=== PATIENT | male | born 1980 | race Caucasian/White ===

== ENCOUNTER 2017-07-20 21:00 | Emergency (ER) | payer SELFPAY ==
[2017-07-20 22:58] LABS: Absolute Lymphocytes (CBC) 4.9 K/uL (0.7-4.9); Absolute Monocytes 1.3 K/uL (0.1-1.3); Absolute Neutrophil 6.1 K/uL (1.8-8.0); Basophils % 0.9 % (0-1.3); Eosinophils % 3.1 % (0-4.4); Hematocrit 43.7 % (39.6-49.0); Lymphocytes % 38.4 % (15.3-44.8); MCH 29.3 pg (27.0-35.0); MCV 86.9 fL (80-100); MPV 7.4 fL (7.6-11.3); Monocytes % 10.1 % (3.3-12.3); RBC Red Blood Cell Count 5.03 M/uL (4.33-5.43)
[2017-07-20 23:02] LABS: Bicarbonate 28 mEq/L (21-31); Glucose Level 116 mg/dL (65-120); Potassium 3.4 mEq/L (3.6-5.0); Sodium Level 138 mEq/L (135-145)
[2017-07-20 23:03] LABS: BUN Blood Urea Nitrogen 11 mg/dL (6-20)
--- NOTE | 2017-07-20 23:36 | EDPHYS ---
Physician Documentation [facility] Name: Irving Tan Age: 36 yrs Sex: Male : 1980 Arrival Date: 07/20/2017 Time: 21:01 Bed 13 Private MD: ED Physician Spenser Martinez HPI: 07/20 23:32 This 36 yrs old Male presents to ER via Ambulatory with complaints of Chest gs Pain. 23:32 The patient or guardian reports chest pain that is located primarily in the anterior gs chest wall. The pain does not radiate. Associated signs and symptoms: Pertinent negatives: abdominal pain, diaphoresis, dizziness, recent travel, shortness of breath. The chest pain is described as dull. Duration: The patient or guardian reports multiple episodes, that are intermittent, that wax and wane, with no pattern, the episodes last approximately 10 second(s), the episodes last approximately 2 minute(s). Modifying factors: The symptoms are alleviated by nothing. the symptoms are aggravated by nothing. Severity of pain: At its worst the pain was moderate in the emergency department the pain has improved moderately. The patient has experienced similar episodes in the past, several times. The patient has not recently seen a physician. Historical: - Allergies: 21:30 No Known Allergies; ak1 - Home Meds: 21:30 CBD oil [Active]; ak1 - PMHx: 21:30 None; ak1 - PSHx: 21:30 None; ak1 - Immunization history:: Adult Immunizations unknown. - Social history:: Smoking status: Patient uses tobacco products, smokes one-half pack cigarettes per day. ROS: 23:32 All other systems are negative. gs Exam: 23:32 Head/Face: Normocephalic, atraumatic. Eyes: Pupils equal round and reactive to light, gs extra-ocular motions intact. Lids and lashes normal. Conjunctiva and sclera are non-icteric and not injected. Cornea within normal limits. Periorbital areas with no swelling, redness, or edema. ENT: Nares patent. No nasal discharge, no septal abnormalities noted. Tympanic membranes are normal and external auditory canals are clear. Oropharynx with no redness, swelling, or masses, exudates, or evidence of obstruction, uvula midline. Mucous membranes moist. Neck: Trachea midline, no thyromegaly or masses palpated, and no cervical lymphadenopathy. Supple, full range of motion without nuchal rigidity, or vertebral point tenderness. No Meningismus. Chest/axilla: Normal chest wall appearance and motion. Nontender with no deformity. No lesions are appreciated. Cardiovascular: Regular rate and rhythm with a normal S1 and S2. No gallops, murmurs, or rubs. Normal PMI, no JVD. No pulse deficits. Respiratory: Lungs have equal breath sounds bilaterally, clear to auscultation and percussion. No rales, rhonchi or wheezes noted. No increased work of breathing, no retractions or nasal flaring. Abdomen/GI: Soft, non-tender, with normal bowel sounds. No distension or tympany. No guarding or rebound. No evidence of tenderness throughout. Back: No spinal tenderness. No costovertebral tenderness. Full range of motion. Skin: Warm, dry with normal turgor. Normal color with no rashes, no lesions, and no evidence of cellulitis. MS/ Extremity: Pulses equal, no cyanosis. Neurovascular intact. Full, normal range of motion. Neuro: Awake and alert, GCS 15, oriented to person, place, time, and situation. Cranial nerves II-XII grossly intact. Motor strength 5/5 in all extremities. Sensory grossly intact. Cerebellar exam normal. Normal gait. 23:32 Constitutional: The patient appears alert, awake. 23:32 ECG was reviewed by the Attending Physician. Vital Signs: 21:31 BP 136 / 94; Pulse 75; Resp 20; Temp 98; Pulse Ox 98% on R/A; Weight 99.79 kg (R); ak1 Height 6 ft. 3 in. (190.50 cm) (R); Pain 8/10; 22:30 BP 136 / 94; Pulse 75; Pulse Ox 98% on R/A; bs1 23:31 BP 115 / 80; Pulse 71; Resp 18; Pulse Ox 99% on R/A; bs1 07/21 00:00 BP 115 / 80; Pulse 66; Resp 16; Temp 97.7(O); Pulse Ox 100% on R/A; Pain 0/10; bs1 07/20 21:31 Body Mass Index 27.50 (99.79 kg, 190.50 cm) ak1 MDM: 07/20 22:06 Patient medically screened. gs 23:32 Differential diagnosis: abnormal EKG, acute myocardial infarction, chest wall pain, gs pleurisy. Data reviewed: vital signs, nurses notes. 23:32 Response to treatment: the patient's symptoms have resolved after treatment, and as a result, I will discharge patient. 07/20 22:26 Order name: Basic Metabolic Panel; Complete Time: 23:14 07/20 22:26 Order name: CBC with Diff; Complete Time: 23:14 07/20 22:26 Order name: Troponin (emerg Dept Use Only); Complete Time: 23:14 07/20 22: Order name: EKG; Complete Time: 22:27 07/20 21: Order name: Cardiac monitoring; Complete Time: 22:38 07/20 21: Order name: XRAY Chest Pa And Lat (2 Views) 07/20 22: Order name: EKG - Nurse/Tech; Complete Time: 22:39 07/20 21: Order name: IV Saline Lock; Complete Time: :39 07/20 21: Order name: Labs collected and sent; Complete Time: 22:39 07/20 21: Order name: O2 Per Protocol; Complete Time: 22:39 07/20 21: Order name: O2 Sat Monitoring; Complete Time: :39 EC:32 Rate is 74 beats/min. Rhythm is regular. CA interval is normal. QRS interval is normal. gs QT interval is normal. T waves are Normal. No ST changes noted. Clinical impression: Abnormal EKG without significant change. Interpreted by me. Administered Medications: No medications were administered Disposition: 07/20/17 23:35 Discharged to Home. Impression: Chest pain, unspecified. - Condition is Stable. - Discharge Instructions: Nonspecific Chest Pain. - Medication Reconciliation Form, Thank You Letter, Antibiotic Education, Prescription Opioid Use form. - Follow up: Private Physician; When: 2 - 3 days; Reason: Re-evaluation by your physician. Follow up: Yo Latham MD; When: 2 - 3 days; Reason: Re-evaluation by your physician. Signatures: Dispatcher [employer] EDElo Little RN RN ak1 Spenser Martinez MD MD gs Salazar, Brittany, RN RN bs1 Corrections: (The following items were deleted from the chart) 07/21 00:15 07/20 23:35 07/20/2017 23:35 Discharged to Home. Impression: Chest pain, unspecified. bs1 Condition is Stable. Forms are Medication Reconciliation Form, Thank You Letter, Antibiotic Education, Prescription Opioid Use. Follow up: Private Physician; When: 2 - 3 days; Reason: Re-evaluation by your physician. Follow up: Yo Latham; When: 2 - 3 days; Reason: Re-evaluation by your physician. gs
--- NOTE | 2017-07-20 23:36 | ER ---
Nurse's Notes [facility] Name: Irving Tan Age: 36 yrs Sex: Male : 1980 Arrival Date: 07/20/2017 Time: 21:01 Bed 13 Private MD: Diagnosis: Chest pain, unspecified Presentation: 07/20 21:29 Presenting complaint: Patient states: left chest wall pain intermittent since this ak1 morning. pt c/o nausea. Transition of care: patient was not received from another setting of care. Onset of symptoms was July 20, 2017. Initial Sepsis Screen: Does the patient meet any 2 criteria? No. Patient's initial sepsis screen is negative. Does the patient have a suspected source of infection? No. Patient's initial sepsis screen is negative. Care prior to arrival: None. 21:29 Method Of Arrival: Ambulatory ak1 21:29 Acuity: JACLYN 3 ak1 Triage Assessment: 21:32 General: Appears in no apparent distress. uncomfortable, Behavior is calm, cooperative. ak1 Pain: Complains of pain in anterior aspect of left upper chest and left breast. EENT: No signs and/or symptoms were reported regarding the EENT system. Neuro: No deficits noted. Cardiovascular: Reports chest pain, nausea. Respiratory: No deficits noted. GI: No signs and/or symptoms were reported involving the gastrointestinal system. : No signs and/or symptoms were reported regarding the genitourinary system. Derm: No signs and/or symptoms reported regarding the dermatologic system. Musculoskeletal: No signs and/or symptoms reported regarding the musculoskeletal system. Historical: - Allergies: 21:30 No Known Allergies; ak1 - Home Meds: 21:30 CBD oil [Active]; ak1 - PMHx: 21:30 None; ak1 - PSHx: 21:30 None; ak1 - Immunization history:: Adult Immunizations unknown. - Social history:: Smoking status: Patient uses tobacco products, smokes one-half pack cigarettes per day. Screenin:32 Abuse screen: Denies threats or abuse. Denies injuries from another. Nutritional ak1 screening: No deficits noted. Tuberculosis screening: No symptoms or risk factors identified. Fall Risk None identified. Assessment: 21:32 Pain: Pain does not radiate. Pain began this morning. Cardiovascular: Reports chest ak1 pain, nausea. 21:35 General: Appears uncomfortable, Behavior is cooperative, anxious. Pain: Complains of bs1 pain in chest and left breast and anterior aspect of left upper chest Pain does not radiate. Pain: Pain began this am. Neuro: Level of Consciousness is awake, alert, obeys commands, Oriented to person, place, time, situation, Appropriate for age Plush Weaver are equal bilaterally Moves all extremities. Gait is steady, Speech is normal, Facial symmetry appears normal. Cardiovascular: Reports chest pain, nausea, Denies shortness of breath, Heart tones S1 S2 present Capillary refill < 3 seconds Patient's skin is warm and dry. Respiratory: Airway is patent Trachea midline Respiratory effort is even, unlabored, Respiratory pattern is regular, symmetrical, Breath sounds are clear bilaterally. GI: Abdomen is round Bowel sounds present X 4 quads. Abd is non tender X 4 quads Reports nausea. : No deficits noted. No signs and/or symptoms were reported regarding the genitourinary system. EENT: No deficits noted. No signs and/or symptoms were reported regarding the EENT system. Derm: Skin is intact, Skin is pink, warm \T\ dry. Musculoskeletal: Circulation, motion, and sensation intact. Capillary refill < 3 seconds, Range of motion: intact in all extremities. 22:45 Reassessment: No changes from previously documented assessment. Patient and/or family bs1 updated on plan of care and expected duration. Pain level reassessed. Patient is alert, oriented x 3, equal unlabored respirations, skin warm/dry/pink. 23:45 Reassessment: Patient appears in no apparent distress at this time. Patient is alert, bs1 oriented x 3, equal unlabored respirations, skin warm/dry/pink. Denies chest pain at this time. Patient states feeling better. Vital Signs: 21:31 BP 136 / 94; Pulse 75; Resp 20; Temp 98; Pulse Ox 98% on R/A; Weight 99.79 kg (R); ak1 Height 6 ft. 3 in. (190.50 cm) (R); Pain 8/10; 22:30 BP 136 / 94; Pulse 75; Pulse Ox 98% on R/A; bs1 23:31 BP 115 / 80; Pulse 71; Resp 18; Pulse Ox 99% on R/A; bs1 0516 00:00 BP 115 / 80; Pulse 66; Resp 16; Temp 97.7(O); Pulse Ox 100% on R/A; Pain 0/10; bs1 07/20 21:31 Body Mass Index 27.50 (99.79 kg, 190.50 cm) ak1 ED Course: 07/20 21:01 Patient arrived in ED. 21:26 Radha Walton, RN is Primary Nurse. bs1 21:30 Triage completed. ak1 21:30 Inserted saline lock: 22 gauge in right antecubital area, using aseptic technique. bs1 21:31 Arm band placed on Patient placed in an exam room, on a stretcher, Patient notified of ak1 wait time. 21:31 Patient has correct armband on for positive identification. Bed in low position. Call ak1 light in reach. Side rails up X 1. Adult w/ patient. tarring machine operator on. Pulse ox on. NIBP on. 21:33 Patient maintains SpO2 saturation greater than 95% on room air. ak1 21:53 Spenser Martinez MD is Attending Physician. gs 22:40 Initial lab(s) drawn, by ED staff, sent to lab. 3 22:43 Patient moved to radiology via wheelchair. 1 22:44 X-ray completed. Patient tolerated procedure well. mh1 22:45 XRAY Chest Pa And Lat (2 Views) In Process Unspecified. EDMS 22:48 Patient moved back from radiology. 1 23:35 Yo Latham MD is Referral Physician. 07/21 00:13 No provider procedures requiring assistance completed. IV discontinued, bleeding bs1 controlled, No redness/swelling at site. Pressure dressing applied. Administered Medications: No medications were administered Outcome: 07/20 23:35 Discharge ordered by . 07/21 00:13 Discharged to home ambulatory, with family. bs1 Condition: stable Discharge instructions given to patient, Instructed on discharge instructions, follow up and referral plans. medication usage, Demonstrated understanding of instructions, follow-up care. 00:15 Patient left the ED. bs1 Signatures: Dispatcher [employer] Maile Sheets Martha 1 Elo Lock, RN RN [facility] Deborah Beckett [facility] Spenser Martinez MD MD Radha Walton, VERENICE RN bs1
--- NOTE | 2017-07-21 06:40 | RAD REPORT ---
EXAM DESCRIPTION: RAD - Chest Pa And Lat (2 Views) - 07/20/2017 10:51 pm CLINICAL HISTORY: Left-sided chest wall pain COMPARISON: None. TECHNIQUE: PA and lateral views of the chest were obtained. FINDINGS: The lungs are clear. Heart size is normal and central vasculature is within normal limit s. No pleural effusion or pneumothorax seen. No acute bony finding noted. No aortic abnormality. IMPRESSION: No acute cardiopulmonary process.
--- NOTE | 2017-07-21 08:48 | EKG ---
Test Date: 2017-07-20 Test Time: 21:28:08 Garnisher: GLENROY MEASUREMENT RESULTS: Intervals: Rate: 74 NV: 180 QRSD: 94 QT: 408 QTc: 452 [place]: P: 67 NV: 180 QRS: 95 T: 58 INTERPRETIVE STATEMENTS: Normal sinus rhythm Rightward axis Borderline ECG No previous ECG available for comparison Electronically Signed On 07-21-17 08:47:45 CDT by Frank Diaz
== END 2017-07-21 00:15 | disposition home or self-care (01) ==
LOC: ER 21:00
DX: R07.9 Chest pain, unspecified (principal); F17.210 Nicotine dependence, cigarettes, uncomplicated
CPT/HCPCS: 36415; 71046; 80048; 84484; 85025; 93005; 99285

== ENCOUNTER 2018-12-20 09:22 | Emergency (ER) | payer SELFPAY ==
--- NOTE | 2018-12-20 09:58 | EDPHYS ---
Physician Documentation [facility] Name: Irving Tan Age: 38 yrs Sex: Male : 1980 Arrival Date: 12/20/2018 Time: 09:24 Bed 13 Private MD: ED Physician Javed Tamez HPI: 12/20 09:51 This 38 yrs old Male presents to ER via Ambulatory with complaints of Cough, juanito Chest Pain - on deep breaths. 09:51 The patient or guardian reports cough, described as mild, described as moderate. Onset: juanito The symptoms/episode began/occurred 3 day(s) ago. Severity of symptoms: At their worst the symptoms were mild, in the emergency department the symptoms are unchanged. Modifying factors: The symptoms are alleviated by nothing, the symptoms are aggravated by nothing. Associated signs and symptoms: The patient has no apparent associated signs or symptoms. The patient has not experienced similar symptoms in the past. Historical: - Allergies: 09:33 No Known Allergies; hb - Home Meds: 09:33 None [Active]; hb - PMHx: :33 None; hb - PSHx: 09:33 None; hb - Immunization history:: Adult Immunizations up to date. - Social history:: Smoking status: Patient uses tobacco products, smokes one pack cigarettes per day. - Ebola Screening: : No symptoms or risks identified at this time. ROS: 09:52 Constitutional: Negative for fever, chills, and weight loss, Eyes: Negative for injury, juanito pain, redness, and discharge, ENT: Negative for injury, pain, and discharge, Neck: Negative for injury, pain, and swelling, Cardiovascular: Negative for chest pain, palpitations, and edema, Abdomen/GI: Negative for abdominal pain, nausea, vomiting, diarrhea, and constipation, Back: Negative for injury and pain, : Negative for injury, bleeding, discharge, and swelling, MS/Extremity: Negative for injury and deformity, Skin: Negative for injury, rash, and discoloration, Neuro: Negative for headache, weakness, numbness, tingling, and seizure, Psych: Negative for depression, anxiety, suicide ideation, homicidal ideation, and hallucinations, Allergy/Immunology: Negative for hives, rash, and allergies, Endocrine: Negative for neck swelling, polydipsia, polyuria, polyphagia, and marked weight changes, Hematologic/Lymphatic: Negative for swollen nodes, abnormal bleeding, and unusual bruising. 09:52 Respiratory: Positive for cough, with green sputum. Exam: 09:52 Constitutional: This is a well developed, well nourished patient who is awake, alert, juanito and in no acute distress. Head/Face: Normocephalic, atraumatic. Eyes: Pupils equal round and reactive to light, extra-ocular motions intact. Lids and lashes normal. Conjunctiva and sclera are non-icteric and not injected. Cornea within normal limits. Periorbital areas with no swelling, redness, or edema. ENT: Nares patent. No nasal discharge, no septal abnormalities noted. Tympanic membranes are normal and external auditory canals are clear. Oropharynx with no redness, swelling, or masses, exudates, or evidence of obstruction, uvula midline. Mucous membranes moist. Neck: Trachea midline, no thyromegaly or masses palpated, and no cervical lymphadenopathy. Supple, full range of motion without nuchal rigidity, or vertebral point tenderness. No Meningismus. Chest/axilla: Normal chest wall appearance and motion. Nontender with no deformity. No lesions are appreciated. Cardiovascular: Regular rate and rhythm with a normal S1 and S2. No gallops, murmurs, or rubs. Normal PMI, no JVD. No pulse deficits. Abdomen/GI: Soft, non-tender, with normal bowel sounds. No distension or tympany. No guarding or rebound. No evidence of tenderness throughout. Back: No spinal tenderness. No costovertebral tenderness. Full range of motion. Male : Normal genitalia with no discharge or lesions. Skin: Warm, dry with normal turgor. Normal color with no rashes, no lesions, and no evidence of cellulitis. MS/ Extremity: Pulses equal, no cyanosis. Neurovascular intact. Full, normal range of motion. Neuro: Awake and alert, GCS 15, oriented to person, place, time, and situation. Cranial nerves II-XII grossly intact. Motor strength 5/5 in all extremities. Sensory grossly intact. Cerebellar exam normal. Normal gait. Psych: Awake, alert, with orientation to person, place and time. Behavior, mood, and affect are within normal limits. 09:52 Respiratory: mild respiratory distress is noted, Respirations: normal, Breath sounds: are clear throughout, rhonchi, that are mild, are scattered, Respiratory rate: 20 Vital Signs: 09:33 BP 124 / 81; Pulse 68; Resp 20; Temp 98.1(O); Pulse Ox 96% on R/A; Weight 97.52 kg; hb Height 6 ft. 5 in. (195.58 cm); Pain 8/10; 10:28 BP 122 / 80; Pulse 69; Resp 16 S; Pulse Ox 100% on R/A; jl7 09:33 Body Mass Index 25.50 (97.52 kg, 195.58 cm) hb MDM: 09:37 Patient medically screened. [facility] 09:52 Data reviewed: vital signs, nurses notes, radiologic studies, plain films. [facility] 12/20 09:50 Order name: Chest Single View XRAY [facility] Administered Medications: No medications were administered Disposition: 12/20/18 09:57 Discharged to Home. Impression: Chest pain, unspecified, Bronchitis, not specified as acute or chronic, Tobacco abuse counseling, Tobacco use. - Condition is Stable. - Discharge Instructions: Acute Bronchitis, Adult, Steps to Quit Smoking, Smoking Hazards, Upper Respiratory Infection, Adult, Acute Bronchitis, [id number]. - Prescriptions for Bromfed DM 2- 30-10 mg/5 mL Oral syrup - take 10 milliliter by ORAL route every 6 hours; 160 milliliter. Zithromax 500 mg Oral Tablet - take 1 tablet by ORAL route once daily for 4 days; 4 tablet. - Medication Reconciliation Form, Thank You Letter, Antibiotic Education, Prescription Opioid Use form. - Follow up: Private Physician; When: 2 - 3 days; Reason: Recheck today's complaints, Continuance of care, Re-evaluation by your physician. Follow up: Betito Arredondo MD; When: 2 - 3 days; Reason: Recheck today's complaints, Continuance of care, Re-evaluation by your physician. - Problem is new. - Symptoms have improved. Signatures: Dispatcher [employer] EDMS Patricia Sargent Corey, MD MD cha Baxter, Heather, RN RN Corrections: (The following items were deleted from the chart) 10:28 09:57 12/20/2018 09:57 Discharged to Home. Impression: Chest pain, unspecified; bd Bronchitis, not specified as acute or chronic; Tobacco abuse counseling; Tobacco use. Condition is Stable. Forms are Medication Reconciliation Form, Thank You Letter, Antibiotic Education, Prescription Opioid Use. Follow up: Private Physician; When: 2 - 3 days; Reason: Recheck today's complaints, Continuance of care, Re-evaluation by your physician. Follow up: Betito Arredondo; When: 2 - 3 days; Reason: Recheck today's complaints, Continuance of care, Re-evaluation by your physician. Problem is new. Symptoms have improved. juanito
--- NOTE | 2018-12-20 09:58 | ER ---
Nurse's Notes [facility] Name: Irving Tan Age: 38 yrs Sex: Male : 1980 Arrival Date: 12/20/2018 Time: 09:24 Bed 13 Private MD: Diagnosis: Chest pain, unspecified;Bronchitis, not specified as acute or chronic;Tobacco abuse counseling;Tobacco use Presentation: 12/20 09:32 Presenting complaint: Sinus congestion, chest congestion, productive cough with yellow hb sputum, pain with cough, nausea, and chills x 3 weeks. Transition of care: patient was not received from another setting of care. Onset of symptoms was December 20, 2018. Risk Assessment: Do you want to hurt yourself or someone else? Patient reports no desire to harm self or others. Initial Sepsis Screen: Does the patient meet any 2 criteria? No. Patient's initial sepsis screen is negative. Does the patient have a suspected source of infection? No. Patient's initial sepsis screen is negative. Care prior to arrival: None. 09:32 Method Of Arrival: Ambulatory hb 09:32 Acuity: JACLYN 3 hb Historical: - Allergies: 09:33 No Known Allergies; hb - Home Meds: 09:33 None [Active]; hb - PMHx: 09:33 None; hb - PSHx: 09:33 None; hb - Immunization history:: Adult Immunizations up to date. - Social history:: Smoking status: Patient uses tobacco products, smokes one pack cigarettes per day. - Ebola Screening: : No symptoms or risks identified at this time. Screenin:33 Abuse screen: Denies threats or abuse. Denies injuries from another. Nutritional hb screening: No deficits noted. Tuberculosis screening: No symptoms or risk factors identified. Fall Risk None identified. Assessment: 10:00 General: Appears in no apparent distress. uncomfortable, Behavior is calm, cooperative, jl7 appropriate for age. Pain: Complains of pain in chest Pain does not radiate. Pain currently is 8 out of 10 on a pain scale. Quality of pain is described as "Sore with cough" Pain began gradually. Neuro: Level of Consciousness is awake, alert, obeys commands, Oriented to person, place, time, situation. Cardiovascular: Heart tones present Patient's skin is warm and dry. Rhythm is regular. 10:00 Respiratory: Airway is patent Respiratory effort is even, unlabored, Respiratory jl7 pattern is regular, symmetrical. Derm: Skin is pink, warm \\T\\ dry. Vital Signs: 09:33 BP 124 / 81; Pulse 68; Resp 20; Temp 98.1(O); Pulse Ox 96% on R/A; Weight 97.52 kg; hb Height 6 ft. 5 in. (195.58 cm); Pain 8/10; 10:28 BP 122 / 80; Pulse 69; Resp 16 S; Pulse Ox 100% on R/A; jl7 09:33 Body Mass Index 25.50 (97.52 kg, 195.58 cm) hb ED Course: 09:24 Patient arrived in ED. as 09:32 Triage completed. hb 09:33 Arm band placed on. hb 09:33 EKG done, reviewed by Javed Tamez MD. at1 09:34 Patient has correct armband on for positive identification. Bed in low position. Call hb light in reach. 09:36 Javed Tamez MD is Attending Physician. juanito 09:48 Aleja Blum, VERENICE is Primary Nurse. jl7 09:55 Betito Arredondo MD is Referral Physician. juanito 10:00 monitoring analyst on. Pulse ox on. NIBP on. jl7 10:29 No provider procedures requiring assistance completed. Patient did not have IV access jl7 during this emergency room visit. Patient maintains SpO2 saturation greater than 95% on room air. 10:40 Chest Single View XRAY In Process Unspecified. EDMS Administered Medications: No medications were administered Outcome: 09:57 Discharge ordered by . juanito 10:26 Discharged to home ambulatory. jl7 10:26 Condition: stable 10:26 Discharge instructions given to patient, family, Instructed on discharge instructions, follow up and referral plans. medication usage, Demonstrated understanding of instructions, follow-up care, medications, Prescriptions given X 2. 10:28 Patient left the ED. bd Signatures: Dispatcher [employer] EDMS Patricia Sargent Corey, MD MD cha Martinez, Amelia as Gonzales, Amanda, market research associate EKG Tat1 Monica Tabor, RN RN hb Aleja Blum, VERENICE CALDERA jl7
[2018-12-20] MEDS ORDERED: AZITHROMYCIN 250 MG TAB ONE (10:17)
[2018-12-20 10:34] VITALS: TEMP 98.1
[2018-12-20 10:35] VITALS: BP 122/80; O2SAT 100
--- NOTE | 2018-12-20 10:47 | RAD REPORT ---
EXAM DESCRIPTION: RAD - Chest Single View - 12/20/2018 10:40 am CLINICAL HISTORY: Cough;Chest pain Chest pain. COMPARISON: Chest Pa And Lat (2 Views) dated 07/20/2017 FINDINGS: Portable technique limits examination quality. The lungs are grossly clear. The heart is normal in size. No displaced fractures. IMPRESSION: No acute intrathoracic process suspected.
--- NOTE | 2018-12-20 12:11 | EKG ---
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
== END 2018-12-20 10:28 | disposition home or self-care (01) ==
LOC: ER 09:22
DX: J40 Bronchitis, not specified as acute or chronic (principal); Z72.0 Tobacco use; Z71.6 Tobacco abuse counseling
CPT/HCPCS: 71045; 93005; 99285

== ENCOUNTER 2020-09-17 07:04 | Emergency (ER) | payer SELFPAY ==
--- OUTSIDE RECORDS SUMMARY | 2020-09-17 07:07 | XMS REPORT | Continuity of Care Document ---
:1980 Author Organization [facility] t Address [address] [place] [place] [address] Care Team Providers Name Role Phone Goldie Schmidt MD Attending Clinician Problems This patient has no known problems. Allergies, Adverse Reactions, Alerts This patient has no known allergies or adverse reactions. Medications This patient has no known medications. Procedures This patient has no known procedures. Encounters Start End Encounter Admission Attending Care Care Encounter Source Date/Time Date/Time Type Type Clinicians Facility Department ID 2020-04-29 2020-04-29 Telephone Marjorie Schmidt [facility] [id number] 00:00:00 00:00:00 Goldie MUNGUIA [id number] [facility] [id number] [facility] [id number] Results This patient has no known results.
--- NOTE | 2020-09-17 08:44 | RAD REPORT ---
EXAM DESCRIPTION: RAD - Elbow Left 3 View - 09/17/2020 8:27 am CLINICAL HISTORY: Left elbow pain FINDINGS: No fracture or dislocation is seen. No bone or joint abnormality noted
--- NOTE | 2020-09-17 08:48 | ER ---
Nurse's Notes [facility] Name: Irving Tan Age: 39 yrs Sex: Male : 1980 Arrival Date: 09/17/2020 Time: 07:06 Bed 24 Private MD: Diagnosis: Contusion of left elbow Presentation: 09/17 07:27 Chief complaint: Left elbow pain after bumping door with arm last night. Coronavirus hb screen: At this time, the client does not indicate any symptoms associated with coronavirus-19. Ebola Screen: No symptoms or risks identified at this time. Initial Sepsis Screen: Does the patient meet any 2 criteria? No. Patient's initial sepsis screen is negative. Does the patient have a suspected source of infection? No. Patient's initial sepsis screen is negative. Risk Assessment: Do you want to hurt yourself or someone else? Patient reports no desire to harm self or others. Onset of symptoms was September 16, 2020. 07:27 Method Of Arrival: Ambulatory hb 07:27 Acuity: JACLYN 4 hb Triage Assessment: 07:34 General:. ap3 08:17 Injury Description: elbow injury. ap3 Historical: - Allergies: 07:28 No Known Allergies; hb - Immunization history:: Adult Immunizations up to date, Client reports having NOT received the Covid vaccine. Last tetanus immunization: up to date. - Family history:: not pertinent. - Social history:: Smoking status: Patient reports the use of cigarette tobacco products, smokes one-half pack cigarettes per day. - Hospitalizations: : No recent hospitalization is reported. Screenin:32 Abuse screen: Denies threats or abuse. Nutritional screening: No deficits noted. ap3 Tuberculosis screening: No symptoms or risk factors identified. Fall Risk None identified. Assessment: 07:31 General: Appears in no apparent distress. comfortable, Behavior is calm, cooperative, ap3 appropriate for age. Pain: Complains of pain in left elbow Pain does not radiate. Pain currently is 7 out of 10 on a pain scale. Quality of pain is described as aching, Pain began suddenly, 1 day ago. Is intermittent, Alleviated by rest, Aggravated by increased activity. Neuro: Level of Consciousness is awake, alert, obeys commands, Oriented to person, place, time, situation, Appropriate for age. Cardiovascular: Capillary refill < 3 seconds Patient's skin is warm and dry. Respiratory: Airway is patent Respiratory effort is even, unlabored, Respiratory pattern is regular, symmetrical. GI: No signs and/or symptoms were reported involving the gastrointestinal system. : No signs and/or symptoms were reported regarding the genitourinary system. EENT: No signs and/or symptoms were reported regarding the EENT system. Derm: No signs and/or symptoms reported regarding the dermatologic system. Musculoskeletal: Range of motion: intact in left elbow. Vital Signs: 07:27 BP 134 / 82; Pulse 76; Resp 16; Temp 97.8; Pulse Ox 100% on R/A; Pain 8/10; hb 08:03 BP 133 / 98; Pulse 68; Resp 16; Pulse Ox 98% on R/A; ap3 ED Course: 07:06 Patient arrived in ED. rg4 07:07 Manuelito Flynn MD is Attending Physician. rn 07:26 Yesenia Nunes RN is Primary Nurse. ap3 07:28 Triage completed. hb 07:28 Arm band placed on. hb 07:32 Patient has correct armband on for positive identification. Bed in low position. Call ap3 light in reach. Pulse ox on. NIBP on. Door closed. Noise minimized. 08:17 xray at bedside. ap3 08:26 XRAY Elbow LEFT 3 view In Process Unspecified. EDMS 08:48 ED physician to see patient. ap3 08:51 No provider procedures requiring assistance completed. Patient did not have IV access ap3 during this emergency room visit. Administered Medications: No medications were administered Outcome: 08:47 Discharge ordered by . rn 08:51 Discharged to home ambulatory. ap3 08:51 Condition: good 08:51 Discharge instructions given to patient, Instructed on discharge instructions, follow up and referral plans. Demonstrated understanding of instructions, follow-up care. 08:51 Patient left the ED. ap3 Signatures: Dispatcher [employer] EDMS Manuelito Flynn MD MD rn Baxter, Heather, RN RN hb Garcia, Rubi rg4 Yesenia Nunes RN RN ap3
--- NOTE | 2020-09-17 08:48 | EDPHYS ---
Physician Documentation [facility] Name: Irving Tan Age: 39 yrs Sex: Male : 1980 Arrival Date: 09/17/2020 Time: 07:06 Bed 24 Private MD: ED Physician Manuelito Flynn HPI: 09/17 07:18 This 39 yrs old Male presents to ER via Unassigned with complaints of Elbow rn Injury. 07:18 The patient or guardian complains of decreased range of motion, injury, pain. The rn complaints affect the left elbow. Onset: The symptoms/episode began/occurred yesterday. Treatment prior to arrival includes: no previous treatment. Modifying factors: The symptoms are alleviated by remaining still, the symptoms are aggravated by movement, bending arm. Associated signs and symptoms: Pertinent positives: swelling, Pertinent negatives: fever, numbness, tingling, weakness. Severity of symptoms: At their worst the symptoms were moderate, in the emergency department the symptoms are unchanged. The patient has not experienced similar symptoms in the past. 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 No fever. . Historical: - Allergies: 07:28 No Known Allergies; hb - Immunization history:: Adult Immunizations up to date, Client reports having NOT received the Covid vaccine. Last tetanus immunization: up to date. - Family history:: not pertinent. - Social history:: Smoking status: Patient reports the use of cigarette tobacco products, smokes one-half pack cigarettes per day. - Hospitalizations: : No recent hospitalization is reported. ROS: 07:18 Constitutional: Negative for fever, chills, and weight loss, Cardiovascular: Negative rn for chest pain, palpitations, and edema, Respiratory: Negative for shortness of breath, cough, wheezing, and pleuritic chest pain, MS/Extremity: + injury and pain to left elbow Skin: Negative for injury, rash, and discoloration, Neuro: Negative for weakness, numbness, tingling Exam: 07:18 Constitutional: This is a well developed, well nourished patient who is awake, alert, rn and in no acute distress. MS/ Extremity: Pulses equal, no cyanosis. Neurovascular intact. + tenderness over olecranon and proximal radial head. No open wounds. NO track zavala. No fluctuance. NO warmth. + mild swelling about elbow. Vital Signs: 07:27 BP 134 / 82; Pulse 76; Resp 16; Temp 97.8; Pulse Ox 100% on R/A; Pain 8/10; hb 08:03 BP 133 / 98; Pulse 68; Resp 16; Pulse Ox 98% on R/A; ap3 MDM: 07:07 Patient medically screened. rn 08:46 Differential diagnosis: closed fracture, contusion, tendonitis. Data reviewed: vital rn signs, nurses notes, radiologic studies, plain films, and as a result, I will discharge patient. Test interpretation: by ED physician or midlevel provider: plain radiologic studies, Xray left elbow neg for fracture/dislocation. Counseling: I had a detailed discussion with the patient and/or guardian regarding: the historical points, exam findings, and any diagnostic results supporting the discharge/admit diagnosis, radiology results, the need for outpatient follow up, to return to the emergency department if symptoms worsen or persist or if there are any questions or concerns that arise at home. Special discussion: I discussed with the patient/guardian in detail that at this point there is no indication for admission to the hospital. It is understood, however, that if the symptoms persist or worsen the patient needs to return immediately for re-evaluation. 09/17 07:17 Order name: XRAY Elbow LEFT 3 view; Complete Time: 08:46 rn Administered Medications: No medications were administered Disposition Summary: 09/17/20 08:47 Discharge Ordered Location: Home rn Problem: new rn Symptoms: are unchanged rn Condition: Stable rn Diagnosis - Contusion of left elbow rn Followup: rn - With: Private Physician - When: As needed - Reason: Recheck today's complaints, Re-evaluation by your physician Discharge Instructions: - Discharge Summary Sheet rn - Elbow Contusion rn Forms: - Medication Reconciliation Form rn - Thank You Letter rn - Antibiotic transportation logistics internship - Prescription Opioid Use rn Signatures: Dispatcher [employer] Manuelito Hernandez MD MD rn Baxter, Heather, RN RN hb Prokisch, Amanda, RN RN ap3
[2020-09-17 08:56] VITALS: TEMP 97.8
[2020-09-17 08:58] VITALS: BP 133/98; O2SAT 98
== END 2020-09-17 08:51 | disposition home or self-care (01) ==
LOC: ER 07:04
DX: S50.02XA Contusion of left elbow, initial encounter (principal); W22.8XXA Striking against or struck by other objects, initial encounter; F17.210 Nicotine dependence, cigarettes, uncomplicated
CPT/HCPCS: 99283

== ENCOUNTER 2021-11-01 13:13 | Emergency (ER) | payer SELFPAY ==
--- OUTSIDE RECORDS SUMMARY | 2021-11-01 13:16 | XMS REPORT | Continuity of Care Document ---
:1980 Author Organization [facility] t Address [address] [place] [address] Care Team Providers Name Role Phone PCP, PATIENT DOES NOT HAVE A Primary Care Physician Unavaila KALYANI Meyer Attending Clinician Unavailable Kalyani Arriola Attending Clinician Yesenia Urias MD Attending Clinician Doctor Unassigned, [place] Attending Clinician Unavailable Marjorie Schmidt MD Attending Clinician MARQUISE RICHARDSON Attending Clinician Unavailable MARQUISE RICHARDSON Admitting Clinician Unavailable Problems Condition Condition Condition Status Onset Resolution Last Treating Co mments Source Name Details Category Date Date Treatment Clinician Date Muscle Muscle Disease Active Univers spasm of spasm of 1-17 ity of back back 00:00: [address] Allergies, Adverse Reactions, Alerts Allergy Allergy Status Severity Reaction(s) Onset Inactive Treating Comm ents Source Name Type Date Date Clinician No Known Propensi Active Unknown - None Uni vers Drug ty to See comments 7-17 ity of Allergie adverse 00:00: [place] s reaction [address] [place] [address] s Branch NO KNOWN Drug Active Unknown-Cmnt Un koki DRUG Class 7-17 ity of ALLERGIE 00:00: [address] Social History Social Habit Start Date Stop Date Quantity Comments Source History of 1998-01-13 Cigarette Smoker Universi ty of tobacco use 00:00:00 [facility] Exposure to Not sure University of SARS-CoV-2 [facility] (event) [place] Alcohol intake 2021-01-20 2021-01-20 0 /d University of 00:00:00 00:00:00 [facility] Sex Assigned At [birth year] Universit y of 00:00:00 00:00:00 [facility] Smoking Status Start Date Stop Date Source Current every day smoker Univers ity [facility] Medications Ordered Filled Start Stop Current Ordering Indication Dosage Frequency Signature Comments Components Source Medication Medication Date Date Medication? Clinician (SIG) Name Name amoxicillin 2020-03- No [id number] 500mg Take 1 Univers 500 mg 03-22 tablet by ity of tablet 00:00: 05:59 mouth 2 [place] 00 :00 (two) Medical times Branch daily for 10 days. bromphenira 2020-03- No [id number] 5mL Take 5 mL Univers mine-pseudo 03-22 by mouth 4 i ty of ephedrine-D 00:00: 05:59 (four) [place] as M (BROMFED 00 :00 times Medical DM) 2-30-10 daily as Bran ch mg/5 mL needed for syrup Cold symptoms for up to 10 days. amoxicillin Yes [id number] 1{tbl} Take 1 Univers -clavulanat 2-22 tablet by ity of e 875-125 00:00: mouth [place] mg per 00 every 12 Medical tablet (twelve) Branch hours. amoxicillin Yes [id number] 1{tbl} Take 1 Univers -clavulanat 2-22 tablet by ity of e 875-125 00:00: mouth [place] mg per 00 every 12 Medical tablet (twelve) Branch hours. acetaminoph 2018-03 Yes [id number] 1{tbl} Take 1 Univers en-codeine 2-18 tablet by ity of 300-30 mg 00:00: mouth [place] tablet 00 every 6 Medical (six) Branch hours as needed for Pain (scale 4-6) or Pain (scale 7-10). acetaminoph 2018-03 Yes [id number] 1{tbl} Take 1 Univers en-codeine 2-18 tablet by ity of 300-30 mg 00:00: mouth [place] tablet 00 every 6 Medical (six) Branch hours as needed for Pain (scale 4-6) or Pain (scale 7-10). codeine-gua Yes 5mL Take 5 mL U nivers ifenesin 4-05 by mouth ity of 10-100 mg/5 00:00: every 6 [place] as mL solution 00 (six) Medical hours as Branch needed for Cough. codeine-gua Yes 5mL Take 5 mL U nivers ifenesin 4-05 by mouth ity of 10-100 mg/5 00:00: every 6 [place] as mL solution 00 (six) Medical hours as Branch needed for Cough. peg-electro 2015-03 Yes [id number] Take as Univers lyte soln -08 directed ity of (GOLYTELY) 00:00: before [place] 236-22.74-6 00 colonoscop Me dical .74 -5.86 y Branch gram solution peg-electro 2015-03 Yes [id number] Take as Univers lyte soln -08 directed ity of (GOLYTELY) 00:00: before [place] 236-22.74-6 00 colonoscop Me dical .74 -5.86 y Branch gram solution hyoscyamine 2015-03 Yes .125mg Take 1 Un koki (LEVSIN) 0-25 tablet by ity of 0.125 mg 00:00: mouth [place] tablet 00 every 4 Medical (four) Branch hours as needed for Pain (scale 4-6) or Nausea and Vomiting (N/V). proMETHazin 2015-03 Yes 25mg Take 1 Univ ers e 0-25 tablet by ity of (PHENERGAN) 00:00: mouth [place] 25 mg 00 every 6 Medical tablet (six) Branch hours as needed for Nausea and Vomiting (N/V). hyoscyamine 2015-03 Yes .125mg Take 1 Un koki (LEVSIN) 0-25 tablet by ity of 0.125 mg 00:00: mouth [place] tablet 00 every 4 Medical (four) Branch hours as needed for Pain (scale 4-6) or Nausea and Vomiting (N/V). proMETHazin 2015-03 Yes 25mg Take 1 Univ ers e 0-25 tablet by ity of (PHENERGAN) 00:00: mouth [place] 25 mg 00 every 6 Medical tablet (six) Branch hours as needed for Nausea and Vomiting (N/V). ciprofloxac 2015-03 Yes 500mg Take 1 Uni vers in HCl 0-13 tablet by ity of (CIPRO) 500 00:00: mouth 2 [place] as mg tablet 00 (two) Medical times Branch daily. acetaminoph 2015-03 Yes 1{tbl} Take 1 Un koki en-codeine 0-13 tablet by ity of (TYLENOL 00:00: mouth [place] #3) 300-30 00 every 4 Medica l mg tablet (four) Branch hours as needed for Pain unrelieved by non-narcot ic analgesics . ciprofloxac 2015-03 Yes 500mg Take 1 Uni vers in HCl 0-13 tablet by ity of (CIPRO) 500 00:00: mouth 2 [place] as mg tablet 00 (two) Medical times Branch daily. acetaminoph 2015-03 Yes 1{tbl} Take 1 Un koki en-codeine 0-13 tablet by ity of (TYLENOL 00:00: mouth [place] #3) 300-30 00 every 4 Medica l mg tablet (four) Branch hours as needed for Pain unrelieved by non-narcot ic analgesics . traMADOL 2013-0 Yes 50mg Take 1 Tab Uni vers (ULTRAM) 50 8-18 by mouth ity of mg tablet 00:00: every 6 [place] 00 (six) Medical hours as Branch needed for Pain (scale 7-10). traMADOL 2013-0 Yes 50mg Take 1 Tab Uni vers (ULTRAM) 50 8-18 by mouth ity of mg tablet 00:00: every 6 [place] 00 (six) Medical hours as Branch needed for Pain (scale 7-10). ibuprofen 2013-0 Yes 600mg Take 1 Tab U nivers (MOTRIN) 3-17 by mouth ity of 600 mg 00:00: every 6 [place] tablet 00 (six) Medical hours as Branch needed for Pain (scale 1-3). HYDROcodone 2013-0 Yes 1{tbl} Take 1 Tab Univers -acetaminop 3-17 by mouth ity of [place] (NORCO 00:00: every 6 [place] 5) 5-325 mg 00 (six) Medical tablet hours as Branch needed for Pain (scale 4-6). ibuprofen 2014-0 Yes 600mg Take 1 Tab U nivers (MOTRIN) 3-17 by mouth ity of 600 mg 00:00: every 6 [place] tablet 00 (six) Medical hours as Branch needed for Pain (scale 1-3). HYDROcodone 2014-0 Yes 1{tbl} Take 1 Tab Univers -acetaminop 3-17 by mouth ity of hen (NORCO 00:00: every 6 [place] 5) 5-325 mg 00 (six) Medical tablet hours as Branch needed for Pain (scale 4-6). HYDROcodone Yes 1{tbl} Take 1-2 Univers -acetaminop 3-01 Tabs by ity o f hen (NORCO 00:00: mouth [place] 5) 5-325 mg 00 every 6 Medic al tablet (six) Branch hours as needed for Pain unrelieved by non-narcot ic analgesics . HYDROcodone Yes 1{tbl} Take 1-2 Univers -acetaminop 3-01 Tabs by ity o f hen (NORCO 00:00: mouth [place] 5) 5-325 mg 00 every 6 Medic al tablet (six) Branch hours as needed for Pain unrelieved by non-narcot ic analgesics . cyclobenzap Yes 10mg Take 1 Tab Univers rine 1-17 by mouth 3 ity of (FLEXERIL) 00:00: (three) [place] 10 mg 00 times Medical tablet daily. Branch docusate Yes 100mg Take 1 Cap Un koki (COLACE) 1-17 by mouth ity of 100 mg 00:00: daily. [place] capsule 00 Medical Branch HYDROcodone Yes 1{tbl} Take 1-2 Univers -acetaminop 1-17 Tabs by ity o f hen (NORCO 00:00: mouth [place] 5) 5-325 mg 00 every 6 Medic al tablet (six) Branch hours as needed for Pain (scale 7-10). ibuprofen Yes 600mg Take 1 Tab U nivers (MOTRIN) 1-17 by mouth ity of 600 mg 00:00: every 6 [place] tablet 00 (six) Medical hours as Branch needed for Pain (scale 1-3). cyclobenzap Yes 10mg Take 1 Tab Univers rine 1-17 by mouth 3 ity of (FLEXERIL) 00:00: (three) [place] 10 mg 00 times Medical tablet daily. Branch docusate Yes 100mg Take 1 Cap Un koki (COLACE) 1-17 by mouth ity of 100 mg 00:00: daily. [place] capsule 00 Medical Branch HYDROcodone Yes 1{tbl} Take 1-2 Univers -acetaminop 1-17 Tabs by ity o f doroteo (NORCO 00:00: mouth [place] 5) 5-325 mg 00 every 6 Medic al tablet (six) Branch hours as needed for Pain (scale 7-10). ibuprofen Yes 600mg Take 1 Tab U nivers (MOTRIN) 1-17 by mouth ity of 600 mg 00:00: every 6 [place] tablet 00 (six) Medical hours as Branch needed for Pain (scale 1-3). Vital Signs Vital Name Observation Time Observation Value Comments Source Systolic blood 2021-01-20 16:53:00 112 mm[facility]Hg[facility] Diastolic blood 2021-01-20 16:53:00 79 mm[Hg] [facility] Heart rate 2021-01-20 16:53:00 77 /min [facility] Body temperature 2021-01-20 16:53:00 36.33 [facility] Respiratory rate 2021-01-20 16:53:00 21 /min [facility] Body height 2021-01-20 16:53:00 190.5 cm [facility] Body weight 2021-01-20 16:53:00 81.375 kg [facility] BMI 2021-01-20 16:53:00 22.42 kg/m2 [facility] Oxygen saturation in 2021-01-20 16:53:00 96 /min [facility] Arterial blood by [facility] [place] [place] Pulse oximetry Branch Procedures Procedure Date / Time Performing Clinician Source Performed [facility] STATEMENT OF PATIENT 2021-01-20 06:01:00 Doctor Unassigned, [facility] FINANCIAL RESPONSIBILITY [place] [facility] Encounters Start End Encounter Admission Attending Care Care Encounter Source Date/Time Date/Time Type Type Clinicians Facility Department ID 2021-01-20 2021-01-20 Outpatient R SHELLEY STALLWORTH [facility] [id number] [facility] 11:00:00 11:25:26 KALYANI kerr [facility] 2021-01-20 2021-01-20 Urgent Kalyani Stallworth [facility] [id number] [facility] 10:45:09 11:25:26 Care [facility] [id number] ity of [place] [id number] Jason as YAIR?BLEA [id number] [place] [address] MEDICAL OFFICE BUILDING 2021-01-20 2021-01-20 Outpatient R [facility] [id number] Univers 11:00:00 11:00:00 [id number] ity [facility] 2021-01-20 2021-01-20 Orders Doctor TEE [id number] Univers 00:00:00 00:00:00 Only Unassigned, [place] [id number] ity of [place] [facility] [id number] Jason as [id number] [address] 2020-04-29 2020-04-29 Telephone Marjorie Schmidt [facility] [id number] 00:00:00 00:00:00 Goldie MUNGUIA [id number] [facility] [id number] [place] [id number] 2019-02-22 2019-02-[address] ERT [id number] [facility] 14:17:16 19:56:00 MARQUISE [facility] Results This patient has no known results.
--- NOTE | 2021-11-01 14:17 | RAD REPORT ---
EXAM DESCRIPTION: RAD - Scapula Left - 11/01/2021 2:04 pm CLINICAL HISTORY: PAIN COMPARISON: Shoulder Left 2 View dated 11/01/2021 FINDINGS: No acute fracture. No malalignment. No significant focal degenerative changes. IMPRESSION: No acute osseous abnormality involving the left scapula.
--- NOTE | 2021-11-01 14:17 | RAD REPORT ---
EXAM DESCRIPTION: RAD - Shoulder Left 2 View - 11/01/2021 2:04 pm CLINICAL HISTORY: PAIN COMPARISON: No comparisons FINDINGS/IMPRESSION: No acute fracture. No malalignment. No significant focal degenerative changes.
--- NOTE | 2021-11-01 14:47 | EDPHYS ---
Physician Documentation [facility] Name: Irving Tan Age: 40 yrs Sex: Male : 1980 Arrival Date: 11/01/2021 Time: 13:16 Bed 9 Private MD: ED Physician Manuelito Flynn HPI: 11/01 14:45 This 40 yrs old Male presents to ER via Ambulatory with complaints of Shoulder Injury. kb 14:45 The patient or guardian complains of decreased range of motion, pain. left shoulder. kb Context: The problem was sustained at work, resulted from an unknown reason, The patient experiences decreased range of motion, The patient reports no obvious deformity. Onset: The symptoms/episode began/occurred 2 week(s) ago, and became worse yesterday. Modifying factors: the symptoms are alleviated by nothing. The symptoms are aggravated by movement. Associated signs and symptoms: The patient has no apparent associated signs or symptoms. Severity of symptoms: At their worst the symptoms were moderate, in the emergency department the symptoms are unchanged. Treatment prior to arrival includes: no previous treatment. The patient has not experienced similar symptoms in the past. The patient has not recently seen a physician. Patient reports left scapular pain that started 2 weeks ago. Reports pain with range of motion of left shoulder. States he took a couple days off of work when pain first started and resting made the pain go away. States the pain came back more severe yesterday while working. . Historical: - Allergies: 13:30 No Known Allergies; hb - Home Meds: 13:30 None [Active]; hb - PMHx: 13:30 None; hb - PSHx: 13:30 None; hb - Immunization history:: Client reports having NOT received the Covid vaccine. - Social history:: Smoking status: Patient reports the use of cigarette tobacco products, smokes one-half pack cigarettes per day. ROS: 14:37 Constitutional: Negative for fever, chills, and weight loss. kb 14:37 MS/extremity: Positive for pain, of the left scapular area and posterior aspect of left shoulder. 14:37 All other systems are negative. Exam: 14:37 Constitutional: This is a well developed, well nourished patient who is awake, alert, kb and in no acute distress. Head/Face: Normocephalic, atraumatic. ENT: Moist Mucous membranes Cardiovascular: Regular rate and rhythm with a normal S1 and S2. No gallops, murmurs, or rubs. No pulse deficits. Respiratory: Respirations even and unlabored. No increased work of breathing. Talking in full sentences Skin: Warm, dry with normal turgor. Normal color. Neuro: Awake and alert, GCS 15, oriented to person, place, time, and situation. Moves all extremities. Normal gait. Psych: Awake, alert, with orientation to person, place and time. Behavior, mood, and affect are within normal limits. 14:37 Back: pain, that is moderate, of the left scapular area, ROM is normal, normal spinal alignment noted. 14:37 Musculoskeletal/extremity: Extremities: grossly normal except: noted in the posterior aspect of left shoulder: decreased ROM, pain, tenderness, ROM: limited active range of motion due to pain, in the posterior aspect of left shoulder, Circulation is intact in all extremities. Sensation intact. Vital Signs: 13:28 BP 160 / 110; Pulse 97; Resp 18; Temp 97.7; Pulse Ox 96% on R/A; Weight 95.25 kg; hb Height 6 ft. 3 in. (190.50 cm); Pain 6/10; 14:55 BP 158 / 98; Pulse 84; Resp 16 S; Pulse Ox 97% on R/A; Pain 4/10; mb8 13:28 Body Mass Index 26.25 (95.25 kg, 190.50 cm) hb MDM: 13:30 Patient medically screened. kb 14:36 Data reviewed: vital signs, nurses notes. Data interpreted: Pulse oximetry: on room air kb is 96 %. Interpretation: normal. Counseling: I had a detailed discussion with the patient and/or guardian regarding: the historical points, exam findings, and any diagnostic results supporting the discharge/admit diagnosis, radiology results, the need for outpatient follow up, a orthopedic surgeon, to return to the emergency department if symptoms worsen or persist or if there are any questions or concerns that arise at home. 11/01 13:31 Order name: Scapula Left XRAY; Complete Time: 14:20 kb 11/01 13:31 Order name: Shoulder Left (2 View) XRAY; Complete Time: 14:20 kb Administered Medications: No medications were administered Disposition: 16:24 Co-signature as Attending Physician, Manuelito Flynn MD. rn Disposition Summary: 11/01/21 14:47 Discharge Ordered Location: Home kb Condition: Stable kb Diagnosis - Pain in left shoulder kb Followup: kb - With: Emergency Department - When: As needed - Reason: Worsening of condition Followup: kb - With: Private Physician - When: 2 - 3 days - Reason: Recheck today's complaints, Continuance of care, Re-evaluation by your physician Discharge Instructions: - Discharge Summary Sheet kb - Musculoskeletal Pain kb - Shoulder Pain, [id number] kb - Radicular Pain kb Forms: - Medication Reconciliation Form kb - Thank You Letter kb - Antibiotic Education kb - Prescription Opioid Use kb - Work release form ss Prescriptions: - Ibuprofen 800 mg Oral Tablet - take 1 tablet by ORAL route every 8 hours As needed take with food; 30 tablet; kb Refills: 0, Product Selection Permitted - Cyclobenzaprine 10 mg Oral Tablet - take 1 tablet by ORAL route every 8 hours As needed; 15 tablet; Refills: 0, kb Product Selection Permitted Signatures: Dispatcher [employer] EDSugar Dozier, LO-C TOOLS DEVELOPER-Manuelito Flores MD MD rn Monica Tabor RN RN
--- NOTE | 2021-11-01 14:47 | ER ---
Nurse's Notes [facility] Name: Irving Tan Age: 40 yrs Sex: Male : 1980 Arrival Date: 11/01/2021 Time: 13:16 Bed 9 Private MD: Diagnosis: Pain in left shoulder Presentation: 11/01 13:28 Chief complaint: Left upper back pain that radiates to left shoulder x 2 weeks. hb Coronavirus screen: At this time, the client does not indicate any symptoms associated with coronavirus-19. Ebola Screen: No symptoms or risks identified at this time. Initial Sepsis Screen: Does the patient meet any 2 criteria? No. Patient's initial sepsis screen is negative. Does the patient have a suspected source of infection? No. Patient's initial sepsis screen is negative. Risk Assessment: Do you want to hurt yourself or someone else? Patient reports no desire to harm self or others. Onset of symptoms was October 18, 2021. 13:28 Method Of Arrival: Ambulatory hb 13:28 Acuity: JACLYN 4 hb Historical: - Allergies: 13:30 No Known Allergies; hb - Home Meds: 13:30 None [Active]; hb - PMHx: 13:30 None; hb - PSHx: 13:30 None; hb - Immunization history:: Client reports having NOT received the Covid vaccine. - Social history:: Smoking status: Patient reports the use of cigarette tobacco products, smokes one-half pack cigarettes per day. Screenin:41 Abuse screen: Denies threats or abuse. Denies injuries from another. Nutritional mb8 screening: No deficits noted. Tuberculosis screening: No symptoms or risk factors identified. Fall Risk None identified. Assessment: 13:37 General: Appears in no apparent distress. comfortable, Behavior is calm, cooperative, mb8 appropriate for age. Pain: Complains of pain in left shoulder blade Pain currently is 6 out of 10 on a pain scale. at worst was 10 out of 10 on a pain scale. Quality of pain is described as aching, Alleviated by rest. Cardiovascular: No deficits noted. Respiratory: No deficits noted. Musculoskeletal: Circulation, motion, and sensation intact. Capillary refill < 3 seconds, Range of motion: intact in all extremities, Reports pain in left shoulder blade since 2 weeks ago, got time off work and it felt better with rest. Reports went back to work Wednesday and it started hurting again.. Vital Signs: 13:28 BP 160 / 110; Pulse 97; Resp 18; Temp 97.7; Pulse Ox 96% on R/A; Weight 95.25 kg; hb Height 6 ft. 3 in. (190.50 cm); Pain 6/10; 14:55 BP 158 / 98; Pulse 84; Resp 16 S; Pulse Ox 97% on R/A; Pain 4/10; mb8 13:28 Body Mass Index 26.25 (95.25 kg, 190.50 cm) hb ED Course: 13:16 Patient arrived in ED. rg4 13:17 Sugar [facility]C [facility] kb 13:17 Manuelito Flynn MD is Attending Physician. kb 13:30 Triage completed. hb 13:30 Arm band placed on. 13:31 Estuardo Mishra, RN is Primary Nurse. mb8 13:41 Patient has correct armband on for positive identification. Bed in low position. Call mb8 light in reach. Side rails up X2. 13:41 No provider procedures requiring assistance completed. Patient did not have IV access mb8 during this emergency room visit. 14:06 Scapula Left XRAY In Process Unspecified. EDMS 14:06 Shoulder Left (2 View) XRAY In Process Unspecified. EDMS Administered Medications: No medications were administered Medication: 13:41 VIS not applicable for this client. mb8 Outcome: 14:47 Discharge ordered by . kb 14:55 Discharged to home ambulatory. mb8 14:55 Condition: stable 14:55 Discharge instructions given to patient, Instructed on discharge instructions, follow up and referral plans. no drinking with medication, no driving heavy equipment, medication usage, Demonstrated understanding of instructions, follow-up care, medications, Prescriptions given X 2. 14:56 Patient left the ED. mb8 Signatures: Dispatcher [employer] EDMS Sugar Oneil FNP-C FNP-Ckb Baxter, Heather, RN RN hb Garcia, Rubi rg4 Estuardo Mishra, VERENICE CALDERA mb8
[2021-11-01 15:50] VITALS: TEMP 97.7
[2021-11-01 15:52] VITALS: BP 158/98; O2SAT 97
== END 2021-11-01 14:56 | disposition home or self-care (01) ==
LOC: ER 13:13
DX: M25.512 Pain in left shoulder (principal); F17.210 Nicotine dependence, cigarettes, uncomplicated
CPT/HCPCS: 73010; 99283

== ENCOUNTER 2021-11-15 03:33 | Emergency (ER) | payer SELFPAY ==
--- OUTSIDE RECORDS SUMMARY | 2021-11-15 03:36 | XMS REPORT | Continuity of Care Document ---
:1980 Author Organization [facility] t Address [address] [place] [address] Care Team Providers Name Role Phone PCP, PATIENT DOES NOT HAVE A Primary Care Physician Unavaila KALYANI Meyer Attending Clinician Unavailable Kalyani Arriola Attending Clinician Yesenia Urias MD Attending Clinician Doctor Unassigned, [place] Attending Clinician Unavailable Marjorie Schmidt MD Attending Clinician MARQUISE RICHARDSON Attending Clinician Unavailable MARQUISE RICHARDSON Admitting Clinician Unavailable Problems Condition Condition Condition Status Onset Resolution Last Treating Co mments Source Name Details Category Date Date Treatment Clinician Date Muscle Muscle Disease Active Univers spasm of spasm of 1-17 ity of back back 00:00: [address] Allergies, Adverse Reactions, Alerts Allergy Allergy Status Severity Reaction(s) Onset Inactive Treating Comm ents Source Name Type Date Date Clinician No Known Propensi Active Unknown - None Uni vers Drug ty to See comments 7-17 ity of Allergie adverse 00:00: [facility] reaction [address] [place] [address] NO KNOWN Drug Active Unknown-Cmnt Un koki DRUG Class 7-17 ity of ALLERGIE 00:00: [address] Social History Social Habit Start Date Stop Date Quantity Comments Source History of 1998-01-13 Cigarette Smoker Universi ty of tobacco use 00:00:00 [facility] Exposure to Not sure University of SARS-CoV-2 [place] [facility] (event) [facility] Alcohol intake 2021-01-20 2021-01-20 0 /d University of 00:00:00 00:00:00 [facility] Sex Assigned At [birth year] Universit y of 00:00:00 00:00:00 [facility] Smoking Status Start Date Stop Date Source Current every day smoker Univers ity of [facility] Medications Ordered Filled Start Stop Current Ordering Indication Dosage Frequency Signature Comments Components Source Medication Medication Date Date Medication? Clinician (SIG) Name Name amoxicillin 2020-03- No [id number] 500mg Take 1 Univers 500 mg 03-22 tablet by ity of tablet 00:00: 05:59 mouth 2 [place] 00 :00 (two) Medical times Branch daily for 10 days. bromphenira 2020-03- No [id number] 5mL Take 5 mL Univers mine-pseudo 03-22 by mouth 4 i ty of ephedrine-D 00:00: 05:59 (four) Jason as M (BROMFED 00 :00 times Medical DM) 2-30-10 daily as Bran ch mg/5 mL needed for syrup Cold symptoms for up to 10 days. amoxicillin Yes [id number] 1{tbl} Take 1 Univers -clavulanat 2-22 tablet by ity of e 875-125 00:00: mouth [place] mg per 00 every 12 Medical tablet (twelve) Branch hours. amoxicillin Yes [id number] 1{tbl} Take 1 Univers -clavulanat 2-22 tablet by ity of e 875-125 00:00: mouth [place] mg per 00 every 12 Medical tablet (twelve) Branch hours. acetaminoph 2018-03 Yes [id number] 1{tbl} Take 1 Univers en-codeine 2-18 tablet by ity of 300-30 mg 00:00: mouth [place] tablet 00 every 6 Medical (six) Branch hours as needed for Pain (scale 4-6) or Pain (scale 7-10). acetaminoph 2018-03 Yes [id number] 1{tbl} Take 1 Univers en-codeine 2-18 tablet by ity of 300-30 mg 00:00: mouth [place] tablet 00 every 6 Medical (six) Branch hours as needed for Pain (scale 4-6) or Pain (scale 7-10). codeine-gua 2017- Yes 5mL Take 5 mL U nivers [...] Branch needed for Cough. peg-electro 2015-03 Yes [id number] Take as Univers [address] directed ity of (GOLYTELY) 00:00: before [place] [id number] 00 colonoscop Me dical .74 -5.86 y Branch gram solution peg-electro 2015-03 Yes [id number] Take as Univers [address] 03-15 directed ity of (GOLYTELY) 00:00: before [place] [...] Branch needed for Pain (scale 7-10). traMADOL 2014-0 Yes 50mg Take 1 Tab Uni vers [...] Branch needed for Pain (scale 4-6). HYDROcodone 2013-0 Yes 1{tbl} Take 1-2 Univers -acetaminop 3-01 Tabs by ity o f hen (NORCO 00:00: mouth [place] 5) 5-325 mg 00 every 6 Medic al tablet (six) Branch hours as needed for Pain unrelieved by non-narcot ic analgesics . HYDROcodone 2013-0 Yes 1{tbl} Take 1-2 Univers -acetaminop 3-01 [...] of 100 mg 00:00: daily. [place] capsule Medical Branch HYDROcodone 0 Yes 1{tbl} Take 1-2 Univers -acetaminop 1-17 Tabs by ity o f hen (NORCO 00:00: mouth [place] 5) 5-325 mg 00 every 6 Medic al tablet (six) Branch hours as needed for Pain (scale 7-10). ibuprofen 2013-0 Yes 600mg Take 1 Tab U nivers (MOTRIN) 1-17 by mouth ity of 600 mg 00:00: every 6 [place] tablet 00 (six) Medical hours as Branch needed for Pain (scale 1-3). cyclobenzap 2013-0 Yes 10mg Take 1 Tab Univers rine 1-17 by mouth 3 ity of (FLEXERIL) 00:00: (three) [place] 10 mg 00 times Medical tablet daily. Branch docusate Yes 100mg Take 1 Cap Un koki (COLACE) 1-17 by mouth ity of 100 mg 00:00: daily. [place] capsule 00 Medical Branch HYDROcodone Yes 1{tbl} Take 1-2 Univers -acetaminop 1-17 Tabs by ithelen sadler (NORCO 00:00: mouth [place] 5) 5-325 mg [...] Source Systolic blood 2021-01-20 16:53:00 112 mm[Hg] [facility] Diastolic blood 2021-01-20 16:53:00 79 mm[Hg] [facility] 2021-01-20 16:53:00 77 /min [facility] Body temperature 2021-01-20 16:53:00 36.33 [facility] Respiratory rate 2021-01-20 16:53:00 21 /min [facility] Body height 2021-01-20 16:53:00 190.5 cm [facility] Body weight 2021-01-20 16:53:00 81.375 kg [facility] BMI 2021-01-20 16:53:00 22.42 kg/m2 [facility] Oxygen saturation in 2021-01-20 16:53:00 96 /min [facility] Arterial blood by [facility] Pulse oximetry Branch Procedures Procedure Date / Time Performing Clinician Source Performed [facility] STATEMENT OF PATIENT 2021-01-20 06:01:00 Doctor Unassigned, [facility] FINANCIAL RESPONSIBILITY [place] [facility] Encounters Start End Encounter Admission Attending Care Care Encounter Source Date/Time Date/Time Type Type Clinicians Facility Department ID 2021-01-20 2021-01-20 Outpatient R SHELLEY STALLWORTH [facility] [id number] Univers 11:00:00 11:25:[address] [facility] 2021-01-20 2021-01-20 Urgent Kalyani Stallworth [facility] [id number] Univers 10:45:09 11:25:26 Care [facility] [id number] ity of [place] [id number] Jason as YAIR?BLEA [id number] Ne gloria [address] MEDICAL OFFICE BUILDING 2021-01-20 2021-01-20 Outpatient R [facility] [id number] Univers 11:00:00 11:00:[id number] [facility] 2021-01-20 2021-01-20 Orders Doctor TEE [id number] Univers 00:00:00 00:00:00 Only Unassigned, [place] [id number] ity of [place] [facility] [id number] Jason as [id number] [address] 2020-04-29 2020-04-29 Telephone Marjorie Schmidt [facility] [id number] 00:00:00 00:00:00 Goldie MUNGUIA [id number] CARE [id number] LB [id number] 2019-02-22 2019-02-22 Emergency X DEBRA [facility] ERT [id number] [facility] 14:17:16 19:56:00 MARQUISE [facility] Results This patient has no known results.
--- NOTE | 2021-11-15 04:13 | ER ---
Nurse's Notes [facility] Name: Irving Tan Age: 40 yrs Sex: Male : 1980 Arrival Date: 11/15/2021 Time: 03:36 Bed 2 Private MD: Diagnosis: Tendinitis of left shoulder and scapula Presentation: 11/15 04:05 Chief complaint: Patient states: he was here a couple of weeks ago for a back injury bb and was doing better but now he is having a lot of left scapular and back pain since yesterday. Coronavirus screen: At this time, the client does not indicate any symptoms associated with coronavirus-19. Ebola Screen: No symptoms or risks identified at this time. Initial Sepsis Screen: Does the patient meet any 2 criteria? No. Patient's initial sepsis screen is negative. Does the patient have a suspected source of infection? No. Patient's initial sepsis screen is negative. Risk Assessment: Do you want to hurt yourself or someone else? Patient reports no desire to harm self or others. Onset of symptoms was November 14, 2021. 04:05 Method Of Arrival: Ambulatory bb 04:05 Acuity: JACLYN 5 bb Triage Assessment: 04:08 General: Appears in no apparent distress. uncomfortable, Behavior is calm, cooperative. bb Pain: Complains of pain in left scapular and back pain Pain currently is 8 out of 10 on a pain scale. Neuro: Level of Consciousness is awake, alert, obeys commands, Oriented to person, place, time, situation. Cardiovascular: Capillary refill < 3 seconds Patient's skin is warm and dry. Respiratory: Respiratory effort is even, unlabored, Respiratory pattern is regular. GI: No signs and/or symptoms were reported involving the gastrointestinal system. Derm: Skin is pink, warm \T\ dry. Musculoskeletal: Circulation, motion, and sensation intact. Reports pain in back. Historical: - Allergies: 04:08 No Known Allergies; bb - Immunization history:: Client reports having NOT received the Covid vaccine. - Social history:: Smoking status: Patient reports the use of cigarette tobacco products. - Family history:: not pertinent. - Hospitalizations: : No recent hospitalization is reported. Screenin:09 Abuse screen: Denies threats or abuse. Nutritional screening: No deficits noted. bb Tuberculosis screening: No symptoms or risk factors identified. Fall Risk None identified. Assessment: 04:09 Reassessment: No changes from previously documented assessment. see triage assessment. bb Vital Signs: 04:05 BP 119 / 91; Pulse 78; Resp 16 S; Temp 97.6(O); Pulse Ox 96% on R/A; Weight 102.06 kg bb (R); Height 6 ft. 3 in. (190.50 cm) (R); Pain 8/10; 04:05 Body Mass Index 28.12 (102.06 kg, 190.50 cm) bb ED Course: 03:36 Patient arrived in ED. citlalli 03:50 Manuelito Flynn MD is Attending Physician. rn 04:08 Triage completed. bb 04:08 Arm band placed on Patient placed in an exam room, on a stretcher, on pulse oximetry. bb 04:09 Patient has correct armband on for positive identification. bb 04:09 No provider procedures requiring assistance completed. Patient did not have IV access bb during this emergency room visit. 04:11 Dangelo Gonzalez MD is Referral Physician. rn 04:16 Won Hoyt RN is Primary Nurse. ke1 Administered Medications: No medications were administered Medication: 04:09 VIS not applicable for this client. bb Outcome: 04:12 Discharge ordered by . rn 04:23 Discharged to home ambulatory. ke1 04:23 Condition: good 04:23 Discharge instructions given to patient. 04:23 Patient left the ED. ke1 Signatures: Nallely Roman RN RN bb Nieto, Roman, MD MD rn Alexander, Jessica ja2 Ebrottie, Kouassi, RN RN ke1
--- NOTE | 2021-11-15 04:13 | EDPHYS ---
Physician Documentation [facility] Name: Irving Tan Age: 40 yrs Sex: Male : 1980 Arrival Date: 11/15/2021 Time: 03:36 Bed 2 Private MD: ED Physician Manuelito Flynn HPI: 11/15 04:07 This 40 yrs old Male presents to ER via Unassigned with complaints of left scapula pain.rn 04:07 The patient presents with pain that is chronic. The symptoms are located in the left rn scapula. Onset: The symptoms/episode began/occurred 1 day(s) ago. The pain does not radiate. Associated signs and symptoms: Pertinent negatives: fever, numbness, tingling, weakness. Modifying factors: The patient symptoms are alleviated by remaining still, the patient symptoms are aggravated by lifting, movement. Severity of symptoms: At their worst the symptoms were moderate, in the emergency department the symptoms are unchanged. The patient has experienced a previous episode. The patient has been recently seen at the [facility] Emergency Department. Pt reports seen here recently for the same pain, had neg xrays at that time, pain started back up again yesterday. 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 No weakness of arm. No other problem. Was having more pain tonight at work, boss told him to get checked out by doctor so came here. . Historical: - Allergies: 04:08 No Known Allergies; bb - Immunization history:: Client reports having NOT received the Covid vaccine. - Social history:: Smoking status: Patient reports the use of cigarette tobacco products. - Family history:: not pertinent. - Hospitalizations: : No recent hospitalization is reported. ROS: 04:07 Constitutional: Negative for fever, chills, and weight loss, Neck: Negative for injury, rn pain, and swelling, Back: + left scapular pain MS/Extremity: Negative for injury and deformity. Exam: 04:07 Constitutional: This is a well developed, well nourished patient who is awake, alert, rn and in no acute distress. Neck: Trachea midline, no thyromegaly or masses palpated, and no cervical lymphadenopathy. Supple, full range of motion without nuchal rigidity, or vertebral point tenderness. No Meningismus. MS/ Extremity: Pulses equal, no cyanosis. Neurovascular intact. Full, normal range of motion. Equal circumference. Mild tenderness around left scapula without swelling. Neuro: Awake and alert, GCS 15, oriented to person, place, time, and situation. Cranial nerves II-XII grossly intact. Motor strength 5/5 in all extremities. Sensory grossly intact. Cerebellar exam normal. Normal gait. Vital Signs: 04:05 BP 119 / 91; Pulse 78; Resp 16 S; Temp 97.6(O); Pulse Ox 96% on R/A; Weight 102.06 kg bb (R); Height 6 ft. 3 in. (190.50 cm) (R); Pain 8/10; 04:05 Body Mass Index 28.12 (102.06 kg, 190.50 cm) bb MDM: 03:51 Patient medically screened. rn 04:07 Differential diagnosis: arthritis, tendonitis. Data reviewed: vital signs, nurses rn notes, old medical records, and as a result, I will discharge patient. Counseling: I had a detailed discussion with the patient and/or guardian regarding: the historical points, exam findings, and any diagnostic results supporting the discharge/admit diagnosis, the need for outpatient follow up, to return to the emergency department if symptoms worsen or persist or if there are any questions or concerns that arise at home. Special discussion: I discussed with the patient/guardian in detail that at this point there is no indication for admission to the hospital. It is understood, however, that if the symptoms persist or worsen the patient needs to return immediately for re-evaluation. Further emergent ED testing is not indicated at this point in time. I discussed with the patient/guardian in detail the need to arrange with the PCP or specialist further outpatient testing, MRI, Based on the history and exam findings, there is no indication for further emergent testing or inpatient evaluation. I discussed with the patient/guardian the need to see the orthopedic surgeon for further evaluation of the symptoms. 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
[2021-11-15 09:04] VITALS: BP 119/91; TEMP 97.6; O2SAT 96
== END 2021-11-15 04:23 | disposition home or self-care (01) ==
LOC: ER 03:33
DX: M75.32 Calcific tendinitis of left shoulder (principal); Z72.0 Tobacco use
CPT/HCPCS: 99283

== ENCOUNTER 2022-04-06 21:57 | Emergency (ER) | payer SELFPAY ==
--- OUTSIDE RECORDS SUMMARY | 2022-04-06 22:08 | XMS REPORT | Continuity of Care Document ---
:1980 Author Organization [facility] t Address [address] [place] [address] Care Team Providers Name Role Phone PCP, PATIENT DOES NOT HAVE A Primary Care Physician Unavaila KALYANI Meyer Attending Clinician Unavailable Kalyani Arriola Attending Clinician Yesenia Urias MD Attending Clinician Doctor Unassigned, [place] Attending Clinician Unavailable Marjorie Schmidt MD Attending Clinician MARQUISE RICHARDSON Attending Clinician Unavailable MARQUISE RICHARDSON Admitting Clinician Unavailable Problems Condition Condition Condition Status Onset Resolution Last Treating Co mments Source Name Details Category Date Date Treatment Clinician Date Muscle Muscle Disease Active Univers spasm of spasm of 1-17 ity of back back 00:00: [address] Allergies, Adverse Reactions, Alerts Allergy Allergy Status Severity Reaction(s) Onset Inactive Treating Comm ents Source Name Type Date Date Clinician No Known Propensi Active Unknown - None Uni vers Drug ty to See comments 7-17 ity of Allergie adverse 00:00: [facility] reaction [address] [place] [address] NO KNOWN Drug Active Unknown-Cmnt Un koki DRUG Class 7-17 ity of ALLERGIE 00:00: [address] Social History Social Habit Start Date Stop Date Quantity Comments Source History of 1998-01-13 Cigarette Smoker Universi ty of tobacco use 00:00:00 [facility] Exposure to Not sure University of SARS-CoV-2 [place] [facility] (event) Branch Alcohol intake 2021-01-20 2021-01-20 0 /d University of 00:00:00 00:00:00 [facility] Sex Assigned At [birth year] Universit y of 00:00:00 00:00:00 [facility] Smoking Status Start Date Stop Date Source Current every day smoker Univers ity of [facility] Medications Ordered Filled Start Stop Current Ordering Indication Dosage Frequency Signature Comments Components Source Medication Medication Date Date Medication? Clinician (SIG) Name Name amoxicillin 2020-03- No [id number] 500mg Take 1 Univers 500 mg 03-22 tablet by ity of tablet 00:00: 05:59 mouth 2 [place] 00 :00 (two) Medical times Branch daily for 10 days. bromphenira 2020-03- No [id number] 5mL Take 5 mL Univers mine-pseudo 03-22 by mouth 4 i ty of ephedrine-D 00:00: 05:59 (four) Jason as M (BROMFED 00 :00 times Medical DM) 2-30-10 daily as Bran ch mg/5 mL needed for syrup Cold symptoms for up to 10 days. amoxicillin Yes [id number] 1{tbl} Take 1 Univers -clavulanat 2-22 tablet by ity of e 875-125 00:00: mouth [place] mg per 00 every 12 Medical tablet (twelve) Branch hours. amoxicillin Yes [id number] 1{tbl} Take 1 Univers -clavulanat 2-22 tablet by ity of e 875-125 00:00: mouth [place] mg per 00 every 12 Medical tablet (twelve) Branch hours. acetaminoph 2018-03 Yes [id number] 1{tbl} Take 1 Univers en-codeine 2-18 tablet by ity of 300-30 mg 00:00: mouth [place] tablet 00 every 6 Medical (six) Branch hours as needed for Pain (scale 4-6) or Pain (scale 7-10). acetaminoph 2018-03 Yes [id number] 1{tbl} Take 1 Univers en-codeine 2-18 tablet [...] ity of 10-100 mg/5 00:00: every 6 Jasno as mL solution 00 (six) Medical hours as Branch needed for Cough. peg-electro 2015-03 Yes [id number] Take as Univers [address] directed ity of (GOLYTELY) 00:00: before [place] 236-22.74-6 00 colonoscop Me dical .74 -5.86 y Branch gram solution peg-electro 2015-03 Yes [id number] Take as Univers lyte soln 03-15 directed [...] Source Systolic blood 2021-01-20 16:53:00 112 mm[Hg] [facility] Diastolic blood 2021-01-20 16:53:00 79 mm[Hg] [facility] 2021-01-20 16:53:00 77 /min [facility] Body temperature 2021-01-20 16:53:00 36.33 Divya [facility] Respiratory rate 2021-01-20 16:53:00 21 /min [facility] Body height 2021-01-20 16:53:00 190.5 cm [facility] Body weight 2021-01-20 16:53:00 81.375 kg [facility] BMI 2021-01-20 16:53:00 22.42 kg/m2 [facility] Oxygen saturation in 2021-01-20 16:53:00 96 /min [facility] Arterial blood by [facility] Pulse oximetry Branch Procedures Procedure Date / Time Performing Clinician Source Performed [facility] STATEMENT OF PATIENT 2021-01-20 06:01:00 Doctor Unassigned, [facility] FINANCIAL RESPONSIBILITY [place] [facility] Encounters Start End Encounter Admission Attending Care Care Encounter Source Date/Time Date/Time Type Type Clinicians Facility Department ID 2021-01-20 2021-01-20 Outpatient R SHELLEY STALLWORTH [facility] [id number] Univers 11:00:00 11:25:26 KALYANI kerr [facility] 2021-01-20 2021-01-20 Urgent Kalyani Stallworth [facility] [id number] Univers 10:45:09 11:25:26 Care [facility] [id number] ity of [facility] [id number] Jason as YAIR?BLEA [id number] [address] MEDICAL OFFICE BUILDING 2021-01-20 2021-01-20 Orders Doctor TEE [id number] Univers 00:00:00 00:00:00 Only Unassigned, [place] [id number] ity of [place] [facility] [id number] Jason as [id number] [address] 2020-04-29 2020-04-29 Telephone Marjorie Schmidt [facility] [id number] 00:00:00 00:00:00 [facility] [id number] CARE [id number] LB [id number] 2019-02-22 2019-02-22 Emergency X DEBRA [facility] ERT [id number] 63 [facility] 14:17:16 19:56:00 MARQUISE kerr of [facility] Results This patient has no known results.
[2022-04-06] MEDS ORDERED: MORPHINE 4 MG/ML SYR ONE (22:35)
[2022-04-06] MEDS ORDERED: ONDANSETRON 4 MG/2 ML VIAL ONE (22:35)
[2022-04-06] MEDS ORDERED: NA CHLORIDE 0.9% 1,000 ML ONE (22:36)
[2022-04-06] MEDS ORDERED: KETOROLAC 30 MG/ML INJ ONE (22:36)
[2022-04-06 22:50] LABS: Absolute Lymphocytes (CBC) 5.6 K/uL (0.7-4.9); Hematocrit 43.6 % (39.6-49.0); Lymphocytes % 43.4 % (15.3-44.8); MPV 6.5 fL (7.6-11.3); RBC Red Blood Cell Count 5.01 M/uL (4.33-5.43)
[2022-04-06 23:01] LABS: Albumin 4.2 g/dL (3.4-5.0); Bilirubin Total 0.3 mg/dL (0.2-1.0); Potassium 3.6 mmol/L (3.5-5.1); Protein, Total 7.5 g/dL (6.4-8.2)
[2022-04-06 23:54] LABS: Blood Morphology Comment NOT SEEN (NOT SEEN); Platelet Estimate ADEQ
--- NOTE | 2022-04-07 00:01 | ER ---
Nurse's Notes [facility] Name: Irving Tan Age: 41 yrs Sex: Male : 1980 Arrival Date: 04/06/2022 Time: 22:02 Bed 15 Private MD: Diagnosis: Hydronephrosis with renal and ureteral calculous obstruction-3 mm right uvj Presentation: 04/06 22:24 Chief complaint: Patient states: he has been having right sided flank pain since about bb 0200 pain seemed to be getting better but now is significantly worse has had kidney stones in the past. Coronavirus screen: At this time, the client does not indicate any symptoms associated with coronavirus-19. Ebola Screen: No symptoms or risks identified at this time. Initial Sepsis Screen: Does the patient meet any 2 criteria? No. Patient's initial sepsis screen is negative. Does the patient have a suspected source of infection? No. Patient's initial sepsis screen is negative. Risk Assessment: Do you want to hurt yourself or someone else? Patient reports no desire to harm self or others. Onset of symptoms was April 06, 2022. 22:24 Method Of Arrival: Ambulatory bb 22:24 Acuity: JACLYN 3 bb Triage Assessment: 22:26 General: Appears uncomfortable, Behavior is agitated, anxious. Pain: Complains of pain bb in right flank. Neuro: Level of Consciousness is awake, alert, obeys commands, Oriented to person, place, time, situation. Cardiovascular: Capillary refill < 3 seconds Patient's skin is warm and dry. Respiratory: Respiratory effort is unlabored. GI: Reports lower abdominal pain, vomiting. Derm: Skin is pink, warm \T\ dry. Musculoskeletal: Circulation, motion, and sensation intact. Historical: - Allergies: 22:26 No Known Allergies; bb - Immunization history:: Client reports having NOT received the Covid vaccine. - Social history:: Smoking status: Patient reports the use of cigarette tobacco products. - Family history:: not pertinent. Screenin/31 00:20 [facility] ED Fall Risk Assessment (Adult) History of falling in the last 3 months, aa9 including since admission No falls in past 3 months (0 pts) Confusion or Disorientation No (0 pts) Intoxicated or Sedated No (0 pts) Impaired Gait No (0 pts) Mobility Assist Device Used No (0 pt) Altered Elimination No (0 pt) Score/Fall Risk Level 0 - 2 = Low Risk. Abuse screen: Denies threats or abuse. Denies injuries from another. Nutritional screening: No deficits noted. Tuberculosis screening: No symptoms or risk factors identified. Assessment: 00:22 Reassessment: Patient appears in no apparent distress at this time. Patient and/or aa9 family updated on plan of care and expected duration. Pain level reassessed. Patient is alert, oriented x 3, equal unlabored respirations, skin warm/dry/pink. Patient states feeling better. Vital Signs: 04/06 22:24 Weight 95.25 kg (R); Height 6 ft. 4 in. (193.04 cm) (R); Pain 10/10; bb 22:26 BP 144 / 89; Pulse 98; Resp 20 S; Temp 97.8(A); Pulse Ox 97% on R/A; bb 04/07 00:08 BP 122 / 69; Pulse 88; Resp 19 S; Pulse Ox 99% on R/A; aa9 04/06 22:24 Body Mass Index 25.56 (95.25 kg, 193.04 cm) ED Course: 04/06 22:02 Patient arrived in ED. ag3 22:26 Triage completed. bb 22:26 Arm band placed on. Labs ordered per protocol. Drawn by ED staff. CT ordered. 22:30 Javed Tamez MD is Attending Physician. [facility] 22:34 Initial lab(s) drawn, by ED staff, sent to lab. Inserted saline lock: 20 gauge in right bb antecubital area, using aseptic technique. Blood collected. 23:19 CT Stone Protocol In Process Unspecified. EDMS 04/07 00:00 Skyler Brooks MD is Referral Physician. [facility] 00:20 No provider procedures requiring assistance completed. IV discontinued, intact, aa9 bleeding controlled, No redness/swelling at site. Pressure dressing applied. 00:21 Patient has correct armband on for positive identification. Placed in gown. aa9 Administered Medications: 04/06 22:38 Drug: NS 0.9% 1000 ml Route: IV; Rate: 1 bolus; Site: right antecubital; bb 23:23 Follow up: IV Status: Completed infusion; IV Intake: 950ml 22:38 Drug: Ketorolac 30 mg Route: IVP; Site: right antecubital; bb 23:01 Follow up: Response: No adverse reaction bb 22:38 Drug: morphine 4 mg Route: IVP; Infused Over: 4 mins; Site: right antecubital; bb 23:01 Follow up: Response: No adverse reaction; Marked relief of symptoms bb 22:38 Drug: Zofran (Ondansetron) 4 mg Route: IVP; Site: right antecubital; bb 23:01 Follow up: Response: No adverse reaction; Marked relief of symptoms bb 04/07 00:08 Drug: Flomax (tamsulosin) 0.4 mg Route: PO; aa9 00:08 Follow up: Response: No adverse reaction aa9 00:08 Drug: Rocephin (cefTRIAXone) 1 grams Route: IV; Rate: per protocol; Site: right aa9 antecubital; 00:08 Follow up: Response: No adverse reaction; IV Status: Completed infusion; IV Intake: [id number] Medication: 00:21 VIS not applicable for this client. aa9 Intake: 04/06 23:23 IV: 950ml; Total: 950ml. bb 04/07 00:08 IV: 10ml; Total: 960ml. aa9 Outcome: 00:00 Discharge ordered by . juanito 00:20 Discharged to home ambulatory. aa9 00:20 Condition: stable 00:20 Discharge instructions given to patient, Instructed on discharge instructions, follow up and referral plans. medication usage, Demonstrated understanding of instructions, follow-up care, medications, Prescriptions given X 4. 00:22 Patient left the ED. aa9 Signatures: Dispatcher [employer] EDJaved Alexandra MD MD cha Ballard, Brenda, RN RN Itzel White Aylin, VERENICE RN aa9
--- NOTE | 2022-04-07 00:02 | EDPHYS ---
Physician Documentation [facility] Name: Irving Tan Age: 41 yrs Sex: Male : 1980 Arrival Date: 04/06/2022 Time: 22:02 Bed 15 Private MD: Javed Fajardo HPI: 04/06 23:55 This 41 yrs old Male presents to ER via Ambulatory with complaints of right juanito flank pain. 23:55 The patient presents with abdominal pain right lower quadrant. Onset: The juanito symptoms/episode began/occurred today, at 14:00. The patient complains of pain in the right mid back and right low back. The pain radiates to the right mid back and right low back. Onset: The symptoms/episode began/occurred at 14:00. Modifying factors: The symptoms are alleviated by nothing. the symptoms are aggravated by nothing. The patient presents with pain that is acute. Location: right mid back and right low back. Associated signs and symptoms: Pertinent positives: abdominal pain, nausea, vomiting. Historical: - Allergies: 22:26 No Known Allergies; bb - Immunization history:: Client reports having NOT received the Covid vaccine. - Social history:: Smoking status: Patient reports the use of cigarette tobacco products. - Family history:: not pertinent. ROS: 23:55 Constitutional: Negative for fever, chills, and weight loss, Eyes: Negative for injury, juanito pain, redness, and discharge, ENT: Negative for injury, pain, and discharge, Neck: Negative for injury, pain, and swelling, Cardiovascular: Negative for chest pain, palpitations, and edema, Respiratory: Negative for shortness of breath, cough, wheezing, and pleuritic chest pain, Back: Negative for injury and pain, : Negative for injury, bleeding, discharge, and swelling, MS/Extremity: Negative for injury and deformity, Skin: Negative for injury, rash, and discoloration, Neuro: Negative for headache, weakness, numbness, tingling, and seizure, Psych: Negative for depression, anxiety, suicide ideation, homicidal ideation, and hallucinations, Allergy/Immunology: Negative for hives, rash, and allergies, Endocrine: Negative for neck swelling, polydipsia, polyuria, polyphagia, and marked weight changes, Hematologic/Lymphatic: Negative for swollen nodes, abnormal bleeding, and unusual bruising. 23:55 Abdomen/GI: Positive for abdominal pain, nausea and vomiting, of the anterior aspect of left lateral abdomen, posterior aspect of left lateral abdomen, right upper quadrant and right lower quadrant. Exam: 23:55 Constitutional: This is a well developed, well nourished patient who is awake, alert, juanito and in no acute distress. Head/Face: Normocephalic, atraumatic. Eyes: Pupils equal round and reactive to light, extra-ocular motions intact. Lids and lashes normal. Conjunctiva and sclera are non-icteric and not injected. Cornea within normal limits. Periorbital areas with no swelling, redness, or edema. ENT: Nares patent. No nasal discharge, no septal abnormalities noted. Tympanic membranes are normal and external auditory canals are clear. Oropharynx with no redness, swelling, or masses, exudates, or evidence of obstruction, uvula midline. Mucous membranes moist. Neck: Trachea midline, no thyromegaly or masses palpated, and no cervical lymphadenopathy. Supple, full range of motion without nuchal rigidity, or vertebral point tenderness. No Meningismus. Chest/axilla: Normal chest wall appearance and motion. Nontender with no deformity. No lesions are appreciated. Cardiovascular: Regular rate and rhythm with a normal S1 and S2. No gallops, murmurs, or rubs. Normal PMI, no JVD. No pulse deficits. Respiratory: Lungs have equal breath sounds bilaterally, clear to auscultation and percussion. No rales, rhonchi or wheezes noted. No increased work of breathing, no retractions or nasal flaring. Back: No spinal tenderness. No costovertebral tenderness. Full range of motion. Male : Normal genitalia with no discharge or lesions. Skin: Warm, dry with normal turgor. Normal color with no rashes, no lesions, and no evidence of cellulitis. MS/ Extremity: Pulses equal, no cyanosis. Neurovascular intact. Full, normal range of motion. Neuro: Awake and alert, GCS 15, oriented to person, place, time, and situation. Cranial nerves II-XII grossly intact. Motor strength 5/5 in all extremities. Sensory grossly intact. Cerebellar exam normal. Normal gait. Psych: Awake, alert, with orientation to person, place and time. Behavior, mood, and affect are within normal limits. 23:55 Abdomen/GI: Inspection: abdomen appears normal, Bowel sounds: normal, Palpation: moderate abdominal tenderness, in the anterior aspect of right lateral abdomen, posterior aspect of right lateral abdomen and right lower quadrant. Vital Signs: 22:24 Weight 95.25 kg (R); Height 6 ft. 4 in. (193.04 cm) (R); Pain 10/10; bb 22:26 BP 144 / 89; Pulse 98; Resp 20 S; Temp 97.8(A); Pulse Ox 97% on R/A; bb 04/07 00:08 BP 122 / 69; Pulse 88; Resp 19 S; Pulse Ox 99% on R/A; aa9 04/06 22:24 Body Mass Index 25.56 (95.25 kg, 193.04 cm) bb MDM: 04/06 22:31 Patient medically screened. juanito 23:58 Differential diagnosis: ruptured disc, Ureterolithiasis cholecystitis, Cholelithiasis, juanito diverticulitis, gastritis, non-specific abd pain, pancreatitis. Data reviewed: vital signs, nurses notes, lab test result(s), radiologic studies, CT scan. Consideration of Admission/Observation Patient was admitted/placed on observation. Escalation of care including admission/observation considered. I considered the following discharge prescriptions or medication management in the emergency department Medications were administered in the Emergency Department. See MAR. Test considered but Not performed: Ultrasound no abd limited. 04/06 22:29 Order name: CBC with Diff 04/06 22:29 Order name: CMP; Complete Time: 23:26 04/06 22:29 Order name: Lipase; Complete Time: 23:26 04/06 22:29 Order name: CT Stone Protocol 04/06 22:56 Order name: Manual Differential EDMS 04/06 22:29 Order name: IV Saline Lock; Complete Time: 22:38 04/06 22:29 Order name: Labs collected and sent; Complete Time: 22:38 bb Administered Medications: 22:38 Drug: NS 0.9% 1000 ml Route: IV; Rate: 1 bolus; Site: right antecubital; bb 23:23 Follow up: IV Status: Completed infusion; IV Intake: 950ml bb 22:38 Drug: Ketorolac 30 mg Route: IVP; Site: right antecubital; bb 23:01 Follow up: Response: No adverse reaction bb 22:38 Drug: morphine 4 mg Route: IVP; Infused Over: 4 mins; Site: right antecubital; bb 23:01 Follow up: Response: No adverse reaction; Marked relief of symptoms bb 22:38 Drug: Zofran (Ondansetron) 4 mg Route: IVP; Site: right antecubital; bb 23:01 Follow up: Response: No adverse reaction; Marked relief of symptoms bb 04/07 00:08 Drug: Flomax (tamsulosin) 0.4 mg Route: PO; aa9 00:08 Follow up: Response: No adverse reaction aa9 00:08 Drug: Rocephin (cefTRIAXone) 1 grams Route: IV; Rate: per protocol; Site: right aa9 antecubital; 00:08 Follow up: Response: No adverse reaction; IV Status: Completed infusion; IV Intake: [id number] Disposition Summary: 04/07/22 00:00 Discharge Ordered Location: Home juanito Problem: new juanito Symptoms: have improved juanito Condition: Stable juanito Diagnosis - Hydronephrosis with renal and ureteral calculous obstruction - 3 mm right uvj juanito Followup: juanito - With: Private Physician - When: 2 - 3 days - Reason: Recheck today's complaints, Continuance of care, Re-evaluation by your physician Followup: juanito - With: Skyler Brooks MD - When: 2 - 3 days - Reason: Recheck today's complaints, Re-evaluation by your physician Discharge Instructions: - Discharge Summary Sheet juanito - Kidney Stones juanito - Kidney Stones, [id number] juanito - Hydronephrosis juanito - Dietary Guidelines to Help Prevent Kidney Stones juanito Forms: - Medication Reconciliation Form [facility] - Thank You Letter [facility] - Antibiotic Education juanito - Prescription Opioid Use [facility] - Work release form aa9 Prescriptions: - Flomax 0.4 mg Oral capsule - take 1 capsule by ORAL route once daily 1/2 hour following the same meal each [facility] day; 20 capsule; Refills: 0, Product Selection Permitted - Zofran 4 mg Oral Tablet - take 1 tablet by ORAL route every 12 hours As needed; 20 tablet; Refills: 0, [facility] Product Selection Permitted - Cipro 500 mg Oral Tablet - take 1 tablet by ORAL route every 12 hours for 7 days; 14 tablet; Refills: 0, [facility] Product Selection Permitted - Tylenol-Codeine #3 300 mg-30 mg Oral - take 2 tablet by ORAL route every 6 hours; 20 tablet; Refills: 0, Product juanito Selection Permitted Signatures: Dispatcher [employer] Javed Michelle MD MD cha Ballard, Brenda, RN RN bb Kylie Still RN RN aa9
[2022-04-07] MEDS ORDERED: CEFTRIAXONE 1000 MG/VIAL ONE (00:04)
[2022-04-07] MEDS ORDERED: TAMSULOSIN 0.4 MG SR CAP ONE (00:05)
[2022-04-07 00:53] VITALS: TEMP 97.8
[2022-04-07 00:54] VITALS: BP 122/69; O2SAT 99
--- NOTE | 2022-04-07 11:50 | RAD REPORT ---
EXAM DESCRIPTION: CT - Stone Protocol - 04/07/2022 6:14 am CLINICAL HISTORY: 41 years Male Flank pain, kidney stone suspected COMPARISON: None TECHNIQUE: CT of the abdomen and pelvis without contrast. All CT scans at this facility use dose modulation, iterative reconstruction, and/or weight based dosi ng when appropriate to reduce radiation dose to as low as reasonably achievable. FINDINGS: Lower thorax: Lung bases are clear Abdomen: Stomach: Within normal limits Liver: No focal lesions. No intrahepatic ductal distention. Gallbladder: Nondistended Pancreas: Within normal limits Spleen: Within normal limits Right kidney: Multiple tiny renal stones. 3 mm stone at the right ureterovesicular junction. Moderate hydronephrosis. Stranding surrounding the right kidney and ureter. Left kidney: No hydronephrosis. No renal or ureteral calculi. Adrenal glands: Within normal limits Vascular structures: Within normal limits (although limited evaluation on noncontrast exam). Lymph nodes: No lymphadenopathy by size criteria Pelvis: Small bowel: No significant distention. Appendix: Within normal limits Colon: No distention or acute pericolonic edema. Peritoneum: No free intraperitoneal fluid or air. Bones: No acute bone findings. Bladder: Unremarkable. Reproductive organs: No acute findings. Note that evaluation of the bowel and solid organs is somewhat limited due to lack of intravenous and oral contrast. IMPRESSION: Right-sided urinary tract calculi as detailed above, with a 3 mm stone at the right uret erovesicular junction. Moderate associated right-sided hydronephrosis. Stranding surrounding the righ t kidney and ureter. Correlate with urinalysis to assess for superimposed infection. Electronically signed by: Taqueria Horan MD 04/06/2022 11:29 PM LVN Due to temporary technical issues with the PACS/Fluency reporting system, reports are being signed by the in house radiologists without review as a courtesy to insure prompt reporting. The interpreting radiologist is fully responsible for the content of the report.
== END 2022-04-07 00:22 | disposition home or self-care (01) ==
LOC: ER 21:57
DX: N13.2 Hydronephrosis with renal and ureteral calculous obstruction (principal); Z72.0 Tobacco use
CPT/HCPCS: 36415; 74176; 76377; 80053; 83690; 85025; 96361; 96374; 96375; 99284; J2405; J7030

== ENCOUNTER 2023-01-16 18:23 | Emergency (ER) | payer OTHER, SELFPAY ==
--- OUTSIDE RECORDS SUMMARY | 2023-01-16 18:27 | XMS REPORT | Continuity of Care Document ---
:1980 Author Organization [facility] t Address [address] [place] [address] [address] [place] [address] Care Team Providers Name Role Phone Pcp, Patient Does Not Have A Primary Care Physician [id number] TEE BARCLAY Attending Clinician Unavailable Doctor Unassigned, [place] Attending Clinician Unavailable Chasity Saldana PA-C Attending Clinician CHASITY SALDANA Attending Clinician Unavailable Unknown, Attending Attending Clinician Unavailable KALYANI STALLWORTH Attending Clinician Unavailable Kalyani Arriola Attending Clinician Yesenia Urias MD Attending Clinician Marjorie Schmidt MD Attending Clinician MARQUISE RICHARDSON Attending Clinician Unavailable MARQUISE RICHARDSON Admitting Clinician Unavailable Payers Payer Name Policy Type Policy Number Effective Date Expiration Date S ource MEDICAID OF [place] [id number] 2022 00:00:00 Problems Condition Condition Condition Status Onset Resolution Last Treating Co mments Source Name Details Category Date Date Treatment Clinician Date Muscle Muscle Disease Active Univers spasm of spasm of 1-17 ity of back back 00:00: [place] [address] Medical Branch Allergies, Adverse Reactions, Alerts Allergy Allergy Status Severity Reaction(s) Onset Inactive Treating Comm ents Source Name Type Date Date Clinician No Known Propensi Active Unknown - None Uni vers Drug ty to See comments 7-17 ity of Allergie adverse 00:00: [place] s reaction 00 Medical s Branch NO KNOWN Drug Active Unknown-Cmnt 2006-0 Un koki DRUG Class 7-17 ity of ALLERGIE 00:00: [place] S 00 [facility] Social History Social Habit Start Date Stop Date Quantity Comments Source History of tobacco 1998-01-13 Cigarette Smoker University of use 00:00:[address] [facility] Exposure to Not sure University of SARS-CoV-2 (event) [facility] [place] Gender identity Universit y of [facility] [place] Sexual orientation Univer sity of [facility] [place] Alcohol intake 2022-11-18 2022-11-18 0 /d University of 00:00:00 00:00:[address] [facility] Cigarettes smoked 2022-11-18 2022-11-18 Univers ity of current (pack per 00:00:00 00:00:00 [facility] ) - Reported [place] Cigarette 2022-11-18 2022-11-18 University of pack-years 00:00:00 00:00:[address] [facility] Tobacco use and 2022-11-18 2022-11-18 Smokeless Universit y of exposure 00:00:00 00:00:00 tobacco non-user [facility] History of Social 2022-11-18 2022-11-18 Univers ity of function 00:00:00 00:00:[address] [facility] [place] Sex Ass[birth year] At [birth year] Universit y of 00:00:00 00:00:[address] [facility] [place] Smoking Status Start Date Stop Date Source Smokes tobacco daily 2022-11-18 00:00:[address] [facility] [place] Medications Ordered Filled Start Stop Current Ordering Indication Dosage Frequency Signature Comments Components Source Medication Medication Date Date Medication? Clinician (SIG) Name Name ibuprofen 2022-0 Yes [id number] 800mg Take 1 Univers 800 mg 9-13 tablet by ity of tablet 00:00: mouth in [place] [address] the Medical morning Branch and 1 tablet at noon and 1 tablet in the evening. Take with meals. ibuprofen 2022-0 Yes [id number] 800mg Take 1 Univers 800 mg 9-13 tablet by ity of tablet 00:00: mouth in [place] [address] the Medical morning Branch and 1 tablet at noon and 1 tablet in the evening. Take with meals. ibuprofen 2022-0 Yes [id number] 800mg Take 1 Univers 800 mg 9-13 tablet by ity of tablet 00:00: mouth in [place] 00 the Medical morning Branch and 1 tablet at noon and 1 tablet in the evening. Take with meals. amoxicillin 2020-03- No [id number] 500mg Take 1 Univers 500 mg 03-22 tablet by ity of tablet 00:00: 05:59 mouth 2 [place] 00 :00 (two) Medical times Branch daily for 10 days. bromphenira 2020-03- No [id number] 5mL Take 5 mL Univers mine-pseudo 03-22 by mouth 4 i ty of ephedrine-D 00:00: 05:59 (four) [place] as M (BROMFED 00 :00 times Medical DM) 2-30-10 daily as Bran ch mg/5 mL needed for syrup Cold symptoms for up to 10 days. amoxicillin Yes [id number] 1{tbl} Take 1 Univers -clavulanat 2-22 tablet by ity of e 875-125 00:00: mouth [place] mg per 00 every 12 Medical tablet (twelve) Branch hours. amoxicillin Yes [id number] 1{tbl} Take 1 Univers -clavulanat 2-22 tablet by ity of e 875-125 00:00: mouth [place] mg per 00 every 12 Medical tablet (twelve) Branch hours. amoxicillin Yes [id number] 1{tbl} Take 1 Univers -clavulanat 2-22 tablet by ity of e 875-125 00:00: mouth [place] mg per 00 every 12 Medical tablet (twelve) Branch hours. amoxicillin Yes [id number] 1{tbl} Take 1 Univers -clavulanat 2-22 tablet by ity of e 875-125 00:00: mouth [place] mg per 00 every 12 Medical tablet (twelve) Branch hours. amoxicillin Yes [id number] 1{tbl} Take 1 Univers -clavulanat 2-22 tablet by ity of e 875-125 00:00: mouth [place] mg per 00 every 12 Medical tablet (twelve) Branch hours. amoxicillin 0 Yes [id number] 1{tbl} Take 1 Univers -clavulanat 2-22 tablet by ity of e 875-125 00:00: mouth [place] mg per 00 every 12 Medical tablet (twelve) Branch hours. acetaminoph 2019- Yes [id number] 1{tbl} Take 1 Univers en-codeine 2-18 tablet by ity of 300-30 mg 00:00: mouth [place] tablet 00 every 6 Medical (six) Branch hours as needed for Pain (scale 4-6) or Pain (scale 7-10). acetaminoph 2018-03 Yes [id number] 1{tbl} Take 1 Univers en-codeine 2-18 tablet by ity of 300-30 mg 00:00: mouth [place] tablet 00 every 6 Medical (six) Branch hours as needed for Pain (scale 4-6) or Pain (scale 7-10). acetaminoph 2018-03 Yes [id number] 1{tbl} Take 1 Univers en-codeine 2-18 tablet by ity of 300-30 mg 00:00: mouth [place] tablet 00 every 6 Medical (six) Branch hours as needed for Pain (scale 4-6) or Pain (scale 7-10). acetaminoph 2018-03 Yes [id number] 1{tbl} Take 1 Univers en-codeine 2-18 tablet by ity of 300-30 mg 00:00: mouth [place] tablet 00 every 6 Medical (six) Branch hours as needed for Pain (scale 4-6) or Pain (scale 7-10). acetaminoph 2018-03 Yes [id number] 1{tbl} Take 1 Univers en-codeine 2-18 tablet by ity of 300-30 mg 00:00: mouth [place] tablet 00 every 6 Medical (six) Branch hours as needed for Pain (scale 4-6) or Pain (scale 7-10). acetaminoph 2018-03 Yes [id number] 1{tbl} Take 1 Univers en-codeine 2-18 tablet by ity of 300-30 mg 00:00: mouth [place] tablet 00 every 6 Medical (six) Branch hours as needed for Pain (scale 4-6) or Pain (scale 7-10). codeine-gua 2018-0 Yes 5mL Take 5 mL U nivers ifenesin 4-05 by mouth ity of 10-100 mg/5 00:00: every 6 [place] as mL solution 00 (six) Medical hours as Branch needed for Cough. codeine-gua 2018-0 Yes 5mL Take 5 mL U nivers ifenesin 4-05 by mouth ity of 10-100 mg/5 00:00: every 6 [place] as mL solution 00 (six) Medical hours as Branch needed for Cough. codeine-gua 2018-0 Yes 5mL Take 5 mL U nivers ifenesin 4-05 by mouth ity of 10-100 mg/5 00:00: every 6 [place] as mL solution 00 (six) Medical hours as Branch needed for Cough. codeine-gua 2018-0 Yes 5mL Take 5 mL U nivers ifenesin 4-05 by mouth ity of 10-100 mg/5 00:00: every 6 [place] as mL solution 00 (six) Medical hours as Branch needed for Cough. codeine-gua 2018-0 Yes 5mL Take 5 mL U nivers ifenesin 4-05 by mouth ity of 10-100 mg/5 00:00: every 6 [place] as mL solution 00 (six) Medical hours as Branch needed for Cough. codeine-gua 2018-0 Yes 5mL Take 5 mL U nivers ifenesin 4-05 by mouth ity of 10-100 mg/5 00:00: every 6 [place] as mL solution 00 (six) Medical hours as Branch needed for Cough. peg-electro 2015-03 Yes [id number] Take as Univers lyte soln 1-08 directed ity of (GOLYTELY) 00:00: before [place] 236-22.74-6 00 colonoscop Me dical .74 -5.86 y Branch gram solution peg-electro 2015-03 Yes [id number] Take as Univers lyte soln 1-08 directed ity of (GOLYTELY) 00:00: before [place] 236-22.74-6 00 colonoscop Me dical .74 -5.86 y Branch gram solution peg-electro 2015-03 Yes [id number] Take as Univers lyte soln 1-08 directed ity of (GOLYTELY) 00:00: before [place] 236-22.74-6 00 colonoscop Me dical .74 -5.86 y Branch gram solution peg-electro 2015-03 Yes [id number] Take as Univers lyte soln 1-08 directed ity of (GOLYTELY) 00:00: before [place] 236-22.74-6 00 colonoscop Me dical .74 -5.86 y Branch gram solution peg-electro 2015-03 Yes [id number] Take as Univers lyte soln 08 directed ity of (GOLYTELY) 00:00: before [place] 236-22.74-6 00 colonoscop Me dical .74 -5.86 y Branch gram solution peg-electro 2015-03 Yes [id number] Take as [facility] directed ity of (GOLYTELY) 00:00: before [place] 236-22.74-6 00 colonoscop Me dical .74 -5.86 y Branch gram solution proMETHazin 2015-03 Yes 25mg Take 1 Univ [...] (scale 4-6) or Nausea and Vomiting (N/V). ciprofloxac 2015-03 Yes [...] Branch needed for Pain (scale 7-10). traMADOL 0 Yes 50mg Take 1 Tab Uni vers [...] Branch needed for Pain (scale 4-6). ibuprofen 2013-0 Yes 600mg Take 1 Tab [...] Branch needed for Pain (scale 4-6). ibuprofen 2013-0 Yes 600mg Take 1 Tab [...] Branch needed for Pain (scale 4-6). ibuprofen 2013-0 Yes 600mg Take 1 Tab [...] Branch needed for Pain (scale 4-6). ibuprofen 2013-0 Yes 600mg Take 1 Tab [...] Branch needed for Pain (scale 1-3). HYDROcodone Yes 1{tbl} Take 1 Tab Univers -acetaminop [...] unrelieved by non-narcot ic analgesics . cyclobenzap 0 Yes 10mg Take 1 Tab Univers rine [...] 00:00: daily. [place] capsule Medical Branch HYDROcodone Yes 1{tbl} Take 1-2 [...] mouth ity of 100 mg 00:00: daily. [place] capsule 00 [facility] Branch HYDROcodone Yes 1{tbl} Take 1-2 Univers [...] Time Observation Value Comments Source Systolic blood 2022-11-18 18:45:00 120 mm[Hg] Univer sity [facility] Diastolic blood 2022-11-18 18:45:00 80 mm[facility]Hg] [facility] Heart rate 2022-11-18 18:45:00 75 /min [facility] Body temperature 2022-11-18 18:45:00 36.61 Divya [facility] Respiratory rate 2022-11-18 18:45:00 20 /min [facility] Body height 2022-11-18 18:45:00 190.5 cm [facility] Body weight 2022-11-18 18:45:00 72.439 kg [facility] BMI 2022-11-18 18:45:00 19.96 kg/m2 [facility] Oxygen saturation in 2022-11-18 18:45:00 95 /min University of Arterial blood by [facility] Pulse oximetry Branch Systolic blood 2021-01-20 16:53:00 112 mm[Hg] Univer sity of pressure [facility] [place] Diastolic blood 2021-01-20 16:53:00 79 mm[Hg] Unive rsity of [facility] Heart rate 2021-01-20 16:53:00 77 /min [facility] Body temperature 2021-01-20 16:53:[address] [facility] Res[facility] rate 2021-01-20 16:53:00 21 /min [facility] Body height 2021-01-20 16:53:00 190.5 cm [facility] Body weight 2021-01-20 16:53:00 81.375 kg [facility] BMI 2021-01-20 16:53:00 22.42 kg/m2 [facility] Oxygen saturation in 2021-01-20 16:53:00 96 /min [place] of Arterial blood by [facility] Pulse oximetry Branch Procedures Procedure Date / Time Performing Clinician Source Performed XR HAND 3+ VW LEFT 2022-11-18 19:30:02 Chasity Saldana [facility] CONSENT/REFUSAL FOR 2022-11-18 18:36:03 Doctor Unassigned, [facility] DIAGNOSIS AND TREATMENT [place] [facility] [place] ASSIGNMENT OF BENEFITS 2022-11-18 18:35:49 Doctor Unassigned, [facility] [place] [facility] STATEMENT OF PATIENT 2021-01-20 06:01:00 Doctor Margiesske, [facility] FINANCIAL RESPONSIBILITY [place] [facility] Encounters Start End Encounter Admission Attending Care Care Encounter Source Date/Time Date/Time Type Type Clinicians Facility Department ID 2023-01-04 2023-01-04 Outpatient R [facility] [id number] Univers 14:40:00 14:40:00 TEE kerr [facility] 2022-11-26 2022-11-26 Patient Doctor TEE [id number] Univers 00:00:00 00:00:00 Secure Msg Unassigned, [place] [id number] ity of [place] [facility] [id number] Jason as [id number] [address] 2022-11-18 2022-11-18 [facility] [id number] Univers 13:53:38 23:59:00 Encounter [facility] [id number] ity [facility] [id number] Jason as YAIR?BLEA [id number] [facility] [address] [place] MEDICAL OFFICE [facility] 2022-11-18 2022-11-18 [facility] [id number] Univers 13:20:00 15:27:23 [facility] 2022-11-18 2022-11-18 Urgent [facility] 1.2.840.11 [id number] Univers 13:20:00 13:40:00 [facility] HEALTH 350..13.10 ity of [facility] 4.2.7.2.686 Jason as YAIR?BLEA [id number] [facility] [address] [place] MEDICAL OFFICE [facility] 2022-11-18 2022-11-18 Orders Doctor TEE [id number] [place] [address] 00:00:00 00:00:00 Only Unassigned, [place] [id number] ity of [place] [facility] 4.2.7.2.686 Jason as [id number] [address] 2021-01-20 2021-01-20 Outpatient [facility] [id number] Univers 11:00:00 11:25:26 OMAYEMI ity [facility] 2021-01-20 2021-01-20 Urgent [facility] 1.2.840. [id number] Univers 10:45:09 11:25:26 Care Adonay, Yesenia HEALTH [id number] ity [facility] [id number] Jason as YAIR?BLEA [id number] [facility] [address] [place] MEDICAL OFFICE [facility] 2021-01-20 2021-01-20 Orders Doctor TEE 1.2.840.114 [id number] Univers 00:00:00 00:00:00 Only Unassigned, [place] [id number] ity of [place] [facility] 4.2.7.2.686 [facility] as [id number] [address] 2020-04-29 2020-04-29 Telephone Marjorie Schmidt [facility] 1.2.840.114 [id number] 00:00:00 00:00:00 Goldie MUNGUIA 350.1.13.10 CARE 4.2.7.2.686 [place] [id number] 2019-02-22 2019-02-22 Emergency X DEBRA [facility] ERT [id number] [facility] 14:17:16 19:56:00 MARQUISE kerr [facility] Results This patient has no known results.
[2023-01-16] MEDS ORDERED: TAMSULOSIN 0.4 MG SR CAP ONE (19:29)
[2023-01-16] MEDS ORDERED: KETOROLAC 30 MG/ML INJ ONE (19:29)
[2023-01-16] MEDS ORDERED: ONDANSETRON 4 MG (ODT) TAB ONE (19:32)
[2023-01-16 19:33] LABS: Specific Gravity 1.015 (1.005-1.030); Urine Bacteria None Seen /HPF (<20); Urine Bilirubin NEGATIVE (Negative); Urine Blood Negative (Negative); Urine Clarity Clear (Clear); Urine Color Yellow (Yellow); Urine Glucose NEGATIVE (Negative); Urine Mucus Slight /HPF (None Seen); Urine Protein NEGATIVE (Negative); Urine Urobilinogen Normal (Normal); Urine pH 6.5 (5.0-7.0)
--- NOTE | 2023-01-16 19:43 | ER ---
Nurse's Notes [facility] Name: [place] Tan Age: 42 yrs Sex: Male : 1980 Arrival Date: 01/16/2023 Time: 18:23 Bed 19 Private MD: Diagnosis: Unspecified renal colic-right;Essential (primary) hypertension Presentation: 01/16 18:31 Chief complaint: Patient states: R flank pain for 3 days. No fever. Hesitancy noted. ll1 Coronavirus screen: Client denies travel out of the [place] in the last 14 days. At this time, the client does not indicate any symptoms associated with coronavirus-19. Ebola Screen: Patient denies travel to an Ebola-affected area in the 21 days before illness onset. Initial Sepsis Screen: Does the patient meet any 2 criteria? No. Patient's initial sepsis screen is negative. Does the patient have a suspected source of infection? No. Patient's initial sepsis screen is negative. Risk Assessment: Do you want to hurt yourself or someone else? Patient reports no desire to harm self or others. Onset of symptoms was January 14, 2023. 18:31 Method Of Arrival: Ambulatory ll1 18:31 Acuity: JACLYN 3 ll1 Historical: - Allergies: 18:31 No Known Allergies; ll1 - PMHx: 18:31 Kidney stone; ll1 - PSHx: 18:31 None; ll1 - Immunization history:: Adult Immunizations up to date. - Social history:: Smoking status: Patient reports the use of cigarette tobacco products, smokes one pack cigarettes per day. Screenin:56 [facility] ED Fall Risk Assessment (Adult) History of falling in the last 3 months, pf1 including since admission No falls in past 3 months (0 pts) Confusion or Disorientation No (0 pts) Intoxicated or Sedated No (0 pts) Impaired Gait No (0 pts) Mobility Assist Device Used No (0 pt) Altered Elimination No (0 pt) Score/Fall Risk Level 0 - 2 = Low Risk Oriented to surroundings, Maintained a safe environment, Educated pt \T\ family on fall prevention, incl call for assistance when getting out of bed, Assessed \T\ reinforced patient's understanding of fall precautions, Provided non-skid footwear, Hourly rounding (assess needs \T\ fall precautionary measures) done, Used ambulatory aids as needed (educated on \T\ assisted with), Used gait belt as appropriate. Abuse screen: Denies threats or abuse. Nutritional screening: No deficits noted. Tuberculosis screening: No symptoms or risk factors identified. Assessment: 08:50 General: Appears in no apparent distress. uncomfortable, Behavior is calm, cooperative. rs5 Pain: Complains of pain in RLQ Pain radiates to pelvis Pain currently is 7 out of 10 on a pain scale. Quality of pain is described as aching, Pain began 2-3 days ago. Is continuous. Neuro: Level of Consciousness is awake, alert, obeys commands, Oriented to person, place, time, situation. Cardiovascular: Heart tones S1 S2 present Rhythm is regular. Respiratory: Airway is patent Respiratory effort is even, unlabored, Respiratory pattern is regular, symmetrical, Breath sounds are clear bilaterally. GI: Abdomen is round non-distended, Bowel sounds present X 4 quads. Abd is soft and non tender X 4 quads. 08:50 : No signs and/or symptoms were reported regarding the genitourinary system. EENT: No rs5 signs and/or symptoms were reported regarding the EENT system. Derm: Skin is intact, Skin is pink, warm \T\ dry. Musculoskeletal: Range of motion: intact in all extremities. 19:00 Reassessment: Report given to limo driver nurse. rs5 Vital Signs: 18:31 BP 131 / 91; Pulse 91; Resp 17; Temp 98.1; Pulse Ox 100% ; Weight 90.72 kg; Height 6 ll1 ft. 3 in. ; Pain 8/10; 19:30 BP 132 / 83; Pulse 80; Resp 16; Pulse Ox 98% on R/A; Pain 3/10; pf1 18:31 Body Mass Index 25.00 (90.72 kg, 190.5 cm) ll1 18:31 Pain Scale: Adult ll1 19:30 Pain Scale: Adult pf1 ED Course: 18:26 Patient arrived in ED. kj1 18:28 Rajwinder Rubio FNP-C [facility] snw 18:29 Jamal Boswell MD is Attending Physician. snw 18:32 Triage completed. ll1 18:32 Arm band placed on Patient placed in an exam room, on a stretcher. ll1 19:00 Patient has correct armband on for positive identification. Bed in low position. Call pf1 light in reach. 19:07 Jasper Franklin, RN is Primary Nurse. bp 19:56 No provider procedures requiring assistance completed. Patient did not have IV access pf1 during this emergency room visit. 19:59 Provided Education on: prescriptions . pf1 Administered Medications: 19:23 Drug: Flomax PO 0.4 mg PO once Route: PO; bp 19:57 Follow up: Response: No adverse reaction; Marked relief of symptoms pf1 19:23 Drug: Ketorolac IM 30 mg IM once Route: IM; Site: right deltoid; bp 19:57 Follow up: Response: No adverse reaction; Marked relief of symptoms; Pain is decreased pf1 19:23 Not Given (MED UNAVAILABLEe): qdyiliczyill24 mg IM once bp 19:23 Drug: Ondansetron PO 4 mg PO once Route: PO; bp 19:57 Follow up: Response: No adverse reaction; Marked relief of symptoms; Nausea is decreasedpf1 Medication: 19:59 VIS not applicable for this client. pf1 Outcome: 19:43 Discharge ordered by . snw 19:58 Discharged to home ambulatory, pf1 19:58 Condition: improved 19:58 Discharge instructions given to patient, Instructed on discharge instructions, follow up and referral plans. Demonstrated understanding of instructions, follow-up care, medications, Prescriptions given X 3, 19:59 Patient left the ED. pf1 Signatures: Rajwinder Rubio, [employer]ATING [employer]ER-C [employer]ATING [employer]ER-Csnw Jasper Franklin, RN RN Misti Valle kj1 Shabbir Rodriguez RN RN ll1 Tahmina Silvestre RN RN pf1 Bin Matthews RN RN rs5
--- NOTE | 2023-01-16 19:43 | EDPHYS ---
Physician Documentation [facility] Name: Irving Tan Age: 42 yrs Sex: Male : 1980 Arrival Date: 01/16/2023 Time: 18:23 Bed 19 Private MD: ED Physician Jamal Boswell HPI: 01/16 19:46 This 42 yrs old Male presents to ER via Ambulatory with complaints of Possible Kidney snw Stone. 19:46 Onset: The symptoms/episode began/occurred acutely. Associated signs and symptoms: snw Pertinent positives:. The patient has experienced similar episodes in the past, several times. The patient has not recently seen a physician, pt states he just got his insurance for f/u. Historical: - Allergies: 18:31 No Known Allergies; ll1 - PMHx: 18:31 Kidney stone; ll1 - PSHx: 18:31 None; ll1 - Immunization history:: Adult Immunizations up to date. - Social history:: Smoking status: Patient reports the use of cigarette tobacco products, smokes one pack cigarettes per day. ROS: 19:46 Constitutional: Negative for fever, chills, and weight loss, Eyes: Negative for injury, snw pain, redness, and discharge, ENT: Negative for injury, pain, and discharge, Neck: Negative for injury, pain, and swelling, Cardiovascular: Negative for chest pain, palpitations, and edema, Respiratory: Negative for shortness of breath, cough, wheezing, and pleuritic chest pain, : Negative for injury, bleeding, discharge, and swelling, MS/Extremity: Negative for injury and deformity, Skin: Negative for injury, rash, and discoloration, Neuro: Negative for headache, weakness, numbness, tingling, and seizure, Psych: Negative for depression, anxiety, suicide ideation, homicidal ideation, and hallucinations, 19:46 Abdomen/GI: Positive for abdominal cramps, of the anterior aspect of right lateral abdomen and posterior aspect of right lateral abdomen, 19:46 Back: Positive for flank pain, on the right, Exam: 19:45 Constitutional: This is a well developed, well nourished patient who is awake, alert, snw and in no acute distress. Head/Face: Normocephalic, atraumatic. Eyes: Pupils equal round and reactive to light, extra-ocular motions intact. Lids and lashes normal. Conjunctiva and sclera are non-icteric and not injected. Cornea within normal limits. Periorbital areas with no swelling, redness, or edema. ENT: Nares patent. No nasal discharge, no septal abnormalities noted. Tympanic membranes are normal and external auditory canals are clear. Oropharynx with no redness, swelling, or masses, exudates, or evidence of obstruction, uvula midline. Mucous membranes moist. Neck: Trachea midline, no thyromegaly or masses palpated, and no cervical lymphadenopathy. Supple, full range of motion without nuchal rigidity, or vertebral point tenderness. No Meningismus. Chest/axilla: Normal chest wall appearance and motion. Nontender with no deformity. No lesions are appreciated. Cardiovascular: Regular rate and rhythm with a normal S1 and S2. No gallops, murmurs, or rubs. Normal PMI, no JVD. No pulse deficits. Respiratory: Lungs have equal breath sounds bilaterally, clear to auscultation and percussion. No rales, rhonchi or wheezes noted. No increased work of breathing, no retractions or nasal flaring. Abdomen/GI: Soft, non-tender, with normal bowel sounds. No distension or tympany. No guarding or rebound. No evidence of tenderness throughout. Back: No spinal tenderness. No costovertebral tenderness. Full range of motion. Skin: Warm, dry with normal turgor. Normal color with no rashes, no lesions, and no evidence of cellulitis. MS/ Extremity: Pulses equal, no cyanosis. Neurovascular intact. Full, normal range of motion. Neuro: Awake and alert, GCS 15, oriented to person, place, time, and situation. Cranial nerves II-XII grossly intact. Motor strength 5/5 in all extremities. Sensory grossly intact. Cerebellar exam normal. Normal gait. Vital Signs: 18:31 BP 131 / 91; Pulse 91; Resp 17; Temp 98.1; Pulse Ox 100% ; Weight 90.72 kg; Height 6 ll1 ft. 3 in. ; Pain 8/10; 19:30 BP 132 / 83; Pulse 80; Resp 16; Pulse Ox 98% on R/A; Pain 3/10; pf1 18:31 Body Mass Index 25.00 (90.72 kg, 190.5 cm) ll1 18:31 Pain Scale: Adult ll1 19:30 Pain Scale: Adult pf1 MDM: 18:31 Patient medically screened. snw 19:47 Differential diagnosis: nephrolithiasis, UTI. Data reviewed: vital signs, nurses notes, snw lab test result(s), urinalysis, +blood. I considered the following discharge prescriptions or medication management in the emergency department Medications were administered in the Emergency Department. See MAR. Counseling: I had a detailed discussion with the patient and/or guardian regarding the historical points, exam findings, and any diagnostic results supporting the discharge/admit diagnosis, the presence of at least one elevated blood pressure reading (>120/80) during this emergency department visit, lab results, the need for outpatient follow up, for definitive care, a urologist, to return to the emergency department if symptoms worsen or persist or if there are any questions or concerns that arise at home. Response to treatment: the patient's symptoms have markedly improved after treatment. Special discussion: Based on the patient's Hx, exam, and Dx evaluation, there is no indication for emergent surgery or inpatient Tx. It is understood by the patient/guardian that if the Sx's persist or worsen they need to return immediately for re-evaluation. I have referred the patient to see his PCP for further evaluation of high blood pressure. Based on the history and exam findings, there is no indication for further emergent testing or inpatient evaluation. I discussed with the patient/guardian the need to see the primary care provider for further evaluation of the symptoms. I discussed with the patient/guardian the need to see the urologist for further evaluation of the symptoms. 01/16 18:30 Order name: Urine W/Microscopic (UAM); Complete Time: 19:35 snw Administered Medications: 19:23 Drug: Flomax PO 0.4 mg PO once Route: PO; bp 19:57 Follow up: Response: No adverse reaction; Marked relief of symptoms pf1 19:23 Drug: Ketorolac IM 30 mg IM once Route: IM; Site: right deltoid; bp 19:57 Follow up: Response: No adverse reaction; Marked relief of symptoms; Pain is decreased pf1 19:23 Not Given (MED UNAVAILABLEe): [id number] mg IM once bp 19:23 Drug: Ondansetron PO 4 mg PO once Route: PO; bp 19:57 Follow up: Response: No adverse reaction; Marked relief of symptoms; Nausea is decreasedpf1 Disposition Summary: 01/16/23 19:43 Discharge Ordered Notes: Location: Home snw Condition: Stable snw Diagnosis - Unspecified renal colic - right snw - Essential (primary) hypertension snw Followup: snw - With: Emergency Department - When: As needed - Reason: Worsening of condition Followup: snw - With: Private Physician - When: 2 - 3 days - Reason: Recheck today's complaints, Continuance of care, Re-evaluation by your physician Discharge Instructions: - Discharge Summary Sheet snw - Hypertension, Adult snw - Renal Colic snw - How to Take Your Blood Pressure, Npal-er-Rbpc snw - Dietary Guidelines to Help Prevent Kidney Stones snw - Rehydration, Adult snw - Form - Blood Pressure Record Sheet snw Forms: - Medication Reconciliation Form snw - Thank You Letter snw - Antibiotic Education snw - Prescription Opioid Use snw - Patient Portal Instructions snw - Leadership Thank You Letter snw Prescriptions: - tamsulosin 0.4 mg Oral capsule - take 1 capsule ORAL route every 24 hours; 14 capsule; Refills: 0, Product snw Selection Permitted - Diclofenac Sodium 75 mg Oral Tablet Sustained Release - take 1 tablet ORAL route 2 times per day; 30 tablet; Refills: 0, Product snw Selection Permitted - promethazine 25 mg Oral tablet - take 1 tablet ORAL route every 6 hours As needed; 18 tablet; Refills: 0, snw Product Selection Permitted Addendum: 01/19/2023 07:22 I was immediately available for consultation during this patient's visit. I did not e c2 personally see the patient or guide the patient's care.. Signatures: Dispatcher [employer] Rajwinder Singh, COLORING ROOM MAN-C COLORING ROOM MAN-Csnw Jasper Franklin RN RN Shabbir Echeverria RN RN ll1 Jamal Boswell MD MD ec2 Tahmina Silvestre RN pf1
[2023-01-16 20:06] VITALS: TEMP 98.1
[2023-01-16 20:07] VITALS: BP 132/83; O2SAT 98
== END 2023-01-16 19:59 | disposition home or self-care (01) ==
LOC: ER 18:23
DX: N23 Unspecified renal colic (principal); I10 Essential (primary) hypertension; Z87.442 Personal history of urinary calculi; F17.210 Nicotine dependence, cigarettes, uncomplicated
CPT/HCPCS: 81001; 96372; 99284; Q0162

== ENCOUNTER → 2023-04-06 | Emergency (ER) | payer OTHER ==
[~2023-04-06] MED LIST: DIPHENHYDRAMINE 50 MG/ML VIAL ONE; KETOROLAC 30 MG/ML INJ ONE; METOCLOPRAMIDE 10 MG/2mL INJ ONE; MORPHINE 4 MG/ML SYR ONE
--- OUTSIDE RECORDS SUMMARY | 2023-04-06 01:59 | XMS REPORT | Continuity of Care Document ---
Author Name Unknown Address [address] [facility]. [address] [place] [address] [facility] thconnect Address [address] [facility] [address] [place] [address] Care Team Providers Care Certified Nurse Aide Name Role Phone KAREN CHIU Primary Care Physician Unavailab Mitzi Gonzalez Attending Clinician [phone] Unknown, Attending Attending Clinician Unavailab MITZI Jurado Attending Clinician Unavailable TEE BARCLAY Attending Clinician Unavailable Doctor Unassigned, [place] Attending Clinician U Chasity Chakraborty PA-C Attending Clinician [phone] CHASITY SALDANA Attending Clinician Unavailable KALYANI STALLWORTH Attending Clinician Unavailabl e Shellyaglucie BLANCHARD, Omayemi Attending Clinician [phone] Yesenia Urias MD Attending Clinician [phone] Marjorie Schmidt MD Attending Clinician [phone] MARQUISE RICHARDSON Attending Clinician Unavailable MARQUISE RICHARDSON Admitting Clinician Unavailable Payers Payer Name Policy Type Policy Number Effective Date Expirati on Date Source [employer] [place] [id number] 2022 00:00:00 Problems Condition Name Condition Details Condition Category Status Onset Date Resolution Date Last Treatment Date Treating Clinician Comments Source Muscle spasm of back Muscle spasm of back Disease Active 03-24 00:00: 00 [facility] Allergies, Adverse Reactions, Alerts Allergy Name Allergy Type Status Severity Reaction(s) Onset Date Inactive Date Treating Clinician Comments Source No Known Drug Allergie s Propensi ty to adverse reaction s Active Unknown - See comments 09-21 00:00: 00 None [facility] NO KNOWN DRUG ALLERGIE S Drug Class Active Unknown-Cmnt 09-21 00:00: 00 [facility] Social History Social Habit Start Date Stop Date Quantity Comments Source History of tobacco use 1998-01-13 00:00:00 Cigarette Smoker [facility] Exposure to SARS-CoV-2 (event) Not sure [facility] Alcohol intake 2023-02-09 00:00:00 2023-02-09 00:00:00 0 /d [facility] History of Social function 2023-02-09 00:00:00 2023-02-09 00:00:00 [facility] Cigarettes smoked current (pack per day) - Reported 2022-11-18 00:00:00 2022-11-18 00:00:00 [facility] Cigarette pack-years 2022-11-18 00:00:00 2022-11-18 00:00:00 [facility] Tobacco use and exposure 2022-11-18 00:00:00 2022-11-18 00:00:00 Smokeless tobacco non-user [facility] Sex Assigned At 1980 00:00:00 1980 00:00:00 [facility] Smoking Status Start Date Stop Date Source Smokes tobacco daily 2022-11-18 00:00:00 [facility] Medications Ordered Medication Name Filled Medication Name Start Date Stop Date Current Medication? Ordering Clinician Indication Dosage Frequency Signature (SIG) Comments Components Source albuterol 90 mcg/actuati on inhaler 2022-03 00:00: 00 Yes [id number] 2{puff} Inhale 2 Puffs every 6 (six) hours as needed for Wheezing, Shortness of Breath, Bronchospa sm or Chest tightness. [facility] bromphenira mine-pseudo ephedrine-D M (BROMFED DM) 2-30-10 mg/5 mL syrup 2023-1 2-05 00:00: 00 02-20 05:59 :00 Yes [id number] 10mL Take 10 mL by mouth 4 (four) times daily for 10 days. [facility] cetirizine (ZYRTEC) 10 mg tablet 2022-03 2- 00:00: 00 02-20 05:59 :00 Yes [id number] 10mg Take 1 tablet by mouth in the morning for 10 days. [facility] ibuprofen 800 mg tablet 11-18 00:00: 00 Yes [id number] 800mg Take 1 tablet by mouth in the morning and 1 tablet at noon and 1 tablet in the evening. Take with meals. [facility] ibuprofen 800 mg tablet 11-18 00:00: 00 Yes [id number] 800mg Take 1 tablet by mouth in the morning and 1 tablet at noon and 1 tablet in the evening. Take with meals. [facility] ibuprofen 800 mg tablet 11-18 00:00: 00 Yes [id number] 800mg Take 1 tablet by mouth in the morning and 1 tablet at noon and 1 tablet in the evening. Take with meals. [facility] ibuprofen 800 mg tablet 11-18 00:00: 00 Yes [id number] 800mg Take 1 tablet by mouth in the morning and 1 tablet at noon and 1 tablet in the evening. Take with meals. [facility] amoxicillin 500 mg tablet 2020-03 00:00: 00 01-31 05:59 :00 No [id number] 500mg Take 1 tablet by mouth 2 (two) times daily for 10 days. [facility] bromphenira mine-pseudo ephedrine-D M (BROMFED DM) 2-30-10 mg/5 mL syrup 2020-03 00:00: 00 01-31 05:59 :00 No [id number] 5mL Take 5 mL by mouth 4 (four) times daily as needed for Cold symptoms for up to 10 days. [facility] amoxicillin -clavulanat e 875-125 mg per tablet 04-29 00:00: 00 Yes [id number] 1{tbl} Take 1 tablet by mouth every 12 (twelve) hours. [facility] amoxicillin -clavulanat e 875-125 mg per tablet 04-29 00:00: 00 Yes [id number] 1{tbl} Take 1 tablet by mouth every 12 (twelve) hours. [facility] amoxicillin -clavulanat e 875-125 mg per tablet 04-29 00:00: 00 Yes [id number] 1{tbl} Take 1 tablet by mouth every 12 (twelve) hours. [facility] amoxicillin -clavulanat e 875-125 mg per tablet 04-29 00:00: 00 Yes [id number] 1{tbl} Take 1 tablet by mouth every 12 (twelve) hours. [facility] amoxicillin -clavulanat e 875-125 mg per tablet 04-29 00:00: 00 Yes [id number] 1{tbl} Take 1 tablet by mouth every 12 (twelve) hours. [facility] amoxicillin -clavulanat e 875-125 mg per tablet 04-29 00:00: 00 Yes [id number] 1{tbl} Take 1 tablet by mouth every 12 (twelve) hours. [facility] amoxicillin -clavulanat e 875-125 mg per tablet 04-29 00:00: 00 Yes [id number] 1{tbl} Take 1 tablet by mouth every 12 (twelve) hours. [facility] acetaminoph en-codeine 300-30 mg tablet 2018-03 00:00: 00 Yes [id number] 1{tbl} Take 1 tablet by mouth every 6 (six) hours as needed for Pain (scale 4-6) or Pain (scale 7-10). [facility] acetaminoph en-codeine 300-30 mg tablet 2018-03 00:00: 00 Yes [id number] 1{tbl} Take 1 tablet by mouth every 6 (six) hours as needed for Pain (scale 4-6) or Pain (scale 7-10). [facility] acetaminoph en-codeine 300-30 mg tablet 2018-03 00:00: 00 Yes [id number] 1{tbl} Take 1 tablet by mouth every 6 (six) hours as needed for Pain (scale 4-6) or Pain (scale 7-10). [facility] acetaminoph en-codeine 300-30 mg tablet 2018-03 00:00: 00 Yes [id number] 1{tbl} Take 1 tablet by mouth every 6 (six) hours as needed for Pain (scale 4-6) or Pain (scale 7-10). [facility] acetaminoph en-codeine 300-30 mg tablet 2018-03 00:00: 00 Yes [id number] 1{tbl} Take 1 tablet by mouth every 6 (six) hours as needed for Pain (scale 4-6) or Pain (scale 7-10). [facility] acetaminoph en-codeine 300-30 mg tablet 2018-03 00:00: 00 Yes [id number] 1{tbl} Take 1 tablet by mouth every 6 (six) hours as needed for Pain (scale 4-6) or Pain (scale 7-10). [facility] acetaminoph en-codeine 300-30 mg tablet 2018-03 00:00: 00 Yes [id number] 1{tbl} Take 1 tablet by mouth every 6 (six) hours as needed for Pain (scale 4-6) or Pain (scale 7-10). [facility] codeine-gua ifenesin 10-100 mg/5 mL solution 05 00:00: 00 Yes 5mL Take 5 mL by mouth every 6 (six) hours as needed for Cough. [facility] codeine-gua ifenesin 10-100 mg/5 mL solution 05 00:00: 00 Yes 5mL Take 5 mL by mouth every 6 (six) hours as needed for Cough. [facility] codeine-gua ifenesin 10-100 mg/5 mL solution 05 00:00: 00 Yes 5mL Take 5 mL by mouth every 6 (six) hours as needed for Cough. [facility] codeine-gua ifenesin 10-100 mg/5 mL solution 06-10 00:00: 00 Yes 5mL Take 5 mL by mouth every 6 (six) hours as needed for Cough. [facility] codeine-gua ifenesin 10-100 mg/5 mL solution 06-10 00:00: 00 Yes 5mL Take 5 mL by mouth every 6 (six) hours as needed for Cough. [facility] codeine-gua ifenesin 10-100 mg/5 mL solution 06-10 00:00: 00 Yes 5mL Take 5 mL by mouth every 6 (six) hours as needed for Cough. [facility] codeine-gua ifenesin 10-100 mg/5 mL solution 06-10 00:00: 00 Yes 5mL Take 5 mL by mouth every 6 (six) hours as needed for Cough. [facility] peg-electro lyte soln (GOLYTELY) 236-22.74-6 .74 -5.86 gram solution 2015-03 00:00: 00 Yes [id number] Take as directed before colonoscop y [facility] peg-electro lyte soln (GOLYTELY) 236-22.74-6 .74 -5.86 gram solution 2015-03 00:00: 00 Yes [id number] Take as directed before colonoscop y [facility] peg-electro lyte soln (GOLYTELY) 236-22.74-6 .74 -5.86 gram solution 2015-03 00:00: 00 Yes [id number] Take as directed before colonoscop y [facility] peg-electro lyte soln (GOLYTELY) 236-22.74-6 .74 -5.86 gram solution 2015-03 00:00: 00 Yes [id number] Take as directed before colonoscop y [facility] peg-electro lyte soln (GOLYTELY) 236-22.74-6 .74 -5.86 gram solution 2015-03 00:00: 00 Yes [id number] Take as directed before colonoscop y [facility] peg-electro lyte soln (GOLYTELY) 236-22.74-6 .74 -5.86 gram solution 2015-03 00:00: 00 Yes [id number] Take as directed before colonoscop y [facility] peg-electro lyte soln (GOLYTELY) 236-22.74-6 .74 -5.86 gram solution 2015-03 00:00: 00 Yes [id number] Take as directed before colonoscop y [facility] hyoscyamine (LEVSIN) 0.125 mg tablet 2015-03 00:00: 00 Yes .125mg Take 1 tablet by mouth every 4 (four) hours as needed for Pain (scale 4-6) or Nausea and Vomiting (N/V). [facility] proMETHazin e (PHENERGAN) 25 mg tablet 2015-03 00:00: 00 Yes 25mg Take 1 tablet by mouth every 6 (six) hours as needed for Nausea and Vomiting (N/V). [facility] hyoscyamine (LEVSIN) 0.125 mg tablet 2015-03 00:00: 00 Yes .125mg Take 1 tablet by mouth every 4 (four) hours as needed for Pain (scale 4-6) or Nausea and Vomiting (N/V). [facility] proMETHazin e (PHENERGAN) 25 mg tablet 2015-03 00:00: 00 Yes 25mg Take 1 tablet by mouth every 6 (six) hours as needed for Nausea and Vomiting (N/V). [facility] hyoscyamine (LEVSIN) 0.125 mg tablet 2015-03 00:00: 00 Yes .125mg Take 1 tablet by mouth every 4 (four) hours as needed for Pain (scale 4-6) or Nausea and Vomiting (N/V). [facility] proMETHazin e (PHENERGAN) 25 mg tablet 2015-03 00:00: 00 Yes 25mg Take 1 tablet by mouth every 6 (six) hours as needed for Nausea and Vomiting (N/V). [facility] hyoscyamine (LEVSIN) 0.125 mg tablet 2015-03 00:00: 00 Yes .125mg Take 1 tablet by mouth every 4 (four) hours as needed for Pain (scale 4-6) or Nausea and Vomiting (N/V). [facility] proMETHazin e (PHENERGAN) 25 mg tablet 2015-03 00:00: 00 Yes 25mg Take 1 tablet by mouth every 6 (six) hours as needed for Nausea and Vomiting (N/V). [facility] hyoscyamine (LEVSIN) 0.125 mg tablet 2015-03 00:00: 00 Yes .125mg Take 1 tablet by mouth every 4 (four) hours as needed for Pain (scale 4-6) or Nausea and Vomiting (N/V). [facility] proMETHazin e (PHENERGAN) 25 mg tablet 2015-03 00:00: 00 Yes 25mg Take 1 tablet by mouth every 6 (six) hours as needed for Nausea and Vomiting (N/V). [facility] hyoscyamine (LEVSIN) 0.125 mg tablet 2015-03 00:00: 00 Yes .125mg Take 1 tablet by mouth every 4 (four) hours as needed for Pain (scale 4-6) or Nausea and Vomiting (N/V). [facility] proMETHazin e (PHENERGAN) 25 mg tablet 2015-03 00:00: 00 Yes 25mg Take 1 tablet by mouth every 6 (six) hours as needed for Nausea and Vomiting (N/V). [facility] hyoscyamine (LEVSIN) 0.125 mg tablet 2015-03 00:00: 00 Yes .125mg Take 1 tablet by mouth every 4 (four) hours as needed for Pain (scale 4-6) or Nausea and Vomiting (N/V). [facility] proMETHazin e (PHENERGAN) 25 mg tablet 2015-03 00:00: 00 Yes 25mg Take 1 tablet by mouth every 6 (six) hours as needed for Nausea and Vomiting (N/V). [facility] ciprofloxac in HCl (CIPRO) 500 mg tablet 2015-03 00:00: 00 Yes 500mg Take 1 tablet by mouth 2 (two) times daily. [facility] acetaminoph en-codeine (TYLENOL #3) 300-30 mg tablet 2015-03 00:00: 00 Yes 1{tbl} Take 1 tablet by mouth every 4 (four) hours as needed for Pain unrelieved by non-narcot ic analgesics . [facility] ciprofloxac in HCl (CIPRO) 500 mg tablet 2015-03 00:00: 00 Yes 500mg Take 1 tablet by mouth 2 (two) times daily. [facility] acetaminoph en-codeine (TYLENOL #3) 300-30 mg tablet 2015-03 00:00: 00 Yes 1{tbl} Take 1 tablet by mouth every 4 (four) hours as needed for Pain unrelieved by non-narcot ic analgesics . [facility] ciprofloxac in HCl (CIPRO) 500 mg tablet 2015-03 00:00: 00 Yes 500mg Take 1 tablet by mouth 2 (two) times daily. [facility] acetaminoph en-codeine (TYLENOL #3) 300-30 mg tablet 2015-03 00:00: 00 Yes 1{tbl} Take 1 tablet by mouth every 4 (four) hours as needed for Pain unrelieved by non-narcot ic analgesics . [facility] ciprofloxac in HCl (CIPRO) 500 mg tablet 2015-03 00:00: 00 Yes 500mg Take 1 tablet by mouth 2 (two) times daily. [facility] acetaminoph en-codeine (TYLENOL #3) 300-30 mg tablet 2015-03 00:00: 00 Yes 1{tbl} Take 1 tablet by mouth every 4 (four) hours as needed for Pain unrelieved by non-narcot ic analgesics . [facility] ciprofloxac in HCl (CIPRO) 500 mg tablet 2015-03 00:00: 00 Yes 500mg Take 1 tablet by mouth 2 (two) times daily. [facility] acetaminoph en-codeine (TYLENOL #3) 300-30 mg tablet 2015-03 00:00: 00 Yes 1{tbl} Take 1 tablet by mouth every 4 (four) hours as needed for Pain unrelieved by non-narcot ic analgesics . [facility] ciprofloxac in HCl (CIPRO) 500 mg tablet 2015-03 00:00: 00 Yes 500mg Take 1 tablet by mouth 2 (two) times daily. [facility] acetaminoph en-codeine (TYLENOL #3) 300-30 mg tablet 2015-03 00:00: 00 Yes 1{tbl} Take 1 tablet by mouth every 4 (four) hours as needed for Pain unrelieved by non-narcot ic analgesics . [facility] ciprofloxac in HCl (CIPRO) 500 mg tablet 2015-03 00:00: 00 Yes 500mg Take 1 tablet by mouth 2 (two) times daily. [facility] acetaminoph en-codeine (TYLENOL #3) 300-30 mg tablet 2015-03 00:00: 00 Yes 1{tbl} Take 1 tablet by mouth every 4 (four) hours as needed for Pain unrelieved by non-narcot ic analgesics . [facility] traMADOL (ULTRAM) 50 mg tablet 10-23 00:00: 00 Yes 50mg Take 1 Tab by mouth every 6 (six) hours as needed for Pain (scale 7-10). [facility] traMADOL (ULTRAM) 50 mg tablet 10-23 00:00: 00 Yes 50mg Take 1 Tab by mouth every 6 (six) hours as needed for Pain (scale 7-10). [facility] traMADOL (ULTRAM) 50 mg tablet 10-23 00:00: 00 Yes 50mg Take 1 Tab by mouth every 6 (six) hours as needed for Pain (scale 7-10). [facility] traMADOL (ULTRAM) 50 mg tablet 10-23 00:00: 00 Yes 50mg Take 1 Tab by mouth every 6 (six) hours as needed for Pain (scale 7-10). [facility] traMADOL (ULTRAM) 50 mg tablet 10-23 00:00: 00 Yes 50mg Take 1 Tab by mouth every 6 (six) hours as needed for Pain (scale 7-10). [facility] traMADOL (ULTRAM) 50 mg tablet 10-23 00:00: 00 Yes 50mg Take 1 Tab by mouth every 6 (six) hours as needed for Pain (scale 7-10). [facility] traMADOL (ULTRAM) 50 mg tablet 10-23 00:00: 00 Yes 50mg Take 1 Tab by mouth every 6 (six) hours as needed for Pain (scale 7-10). [facility] ibuprofen (MOTRIN) 600 mg tablet 05-22 00:00: 00 Yes 600mg Take 1 Tab by mouth every 6 (six) hours as needed for Pain (scale 1-3). [facility] HYDROcodone -acetaminop hen (NORCO 5) 5-325 mg tablet 05-22 00:00: 00 Yes 1{tbl} Take 1 Tab by mouth every 6 (six) hours as needed for Pain (scale 4-6). [facility] ibuprofen (MOTRIN) 600 mg tablet 05-22 00:00: 00 Yes 600mg Take 1 Tab by mouth every 6 (six) hours as needed for Pain (scale 1-3). [facility] HYDROcodone -acetaminop hen (NORCO 5) 5-325 mg tablet 05-22 00:00: 00 Yes 1{tbl} Take 1 Tab by mouth every 6 (six) hours as needed for Pain (scale 4-6). [facility] ibuprofen (MOTRIN) 600 mg tablet 05-22 00:00: 00 Yes 600mg Take 1 Tab by mouth every 6 (six) hours as needed for Pain (scale 1-3). [facility] HYDROcodone -acetaminop hen (NORCO 5) 5-325 mg tablet 05-22 00:00: 00 Yes 1{tbl} Take 1 Tab by mouth every 6 (six) hours as needed for Pain (scale 4-6). [facility] ibuprofen (MOTRIN) 600 mg tablet 05-22 00:00: 00 Yes 600mg Take 1 Tab by mouth every 6 (six) hours as needed for Pain (scale 1-3). [facility] HYDROcodone -acetaminop hen (NORCO 5) 5-325 mg tablet 05-22 00:00: 00 Yes 1{tbl} Take 1 Tab by mouth every 6 (six) hours as needed for Pain (scale 4-6). [facility] ibuprofen (MOTRIN) 600 mg tablet 05-22 00:00: 00 Yes 600mg Take 1 Tab by mouth every 6 (six) hours as needed for Pain (scale 1-3). [facility] HYDROcodone -acetaminop hen (NORCO 5) 5-325 mg tablet 05-22 00:00: 00 Yes 1{tbl} Take 1 Tab by mouth every 6 (six) hours as needed for Pain (scale 4-6). [facility] ibuprofen (MOTRIN) 600 mg tablet 05-22 00:00: 00 Yes 600mg Take 1 Tab by mouth every 6 (six) hours as needed for Pain (scale 1-3). [facility] HYDROcodone -acetaminop hen (NORCO 5) 5-325 mg tablet 05-22 00:00: 00 Yes 1{tbl} Take 1 Tab by mouth every 6 (six) hours as needed for Pain (scale 4-6). [facility] ibuprofen (MOTRIN) 600 mg tablet 05-22 00:00: 00 Yes 600mg Take 1 Tab by mouth every 6 (six) hours as needed for Pain (scale 1-3). [facility] HYDROcodone -acetaminop hen (NORCO 5) 5-325 mg tablet 05-22 00:00: 00 Yes 1{tbl} Take 1 Tab by mouth every 6 (six) hours as needed for Pain (scale 4-6). [facility] HYDROcodone -acetaminop hen (NORCO 5) 5-325 mg tablet 05-06 00:00: 00 Yes 1{tbl} Take 1-2 Tabs by mouth every 6 (six) hours as needed for Pain unrelieved by non-narcot ic analgesics . [facility] HYDROcodone -acetaminop hen (NORCO 5) 5-325 mg tablet 05-06 00:00: 00 Yes 1{tbl} Take 1-2 Tabs by mouth every 6 (six) hours as needed for Pain unrelieved by non-narcot ic analgesics . [facility] HYDROcodone -acetaminop hen (NORCO 5) 5-325 mg tablet 05-06 00:00: 00 Yes 1{tbl} Take 1-2 Tabs by mouth every 6 (six) hours as needed for Pain unrelieved by non-narcot ic analgesics . [facility] HYDROcodone -acetaminop hen (NORCO 5) 5-325 mg tablet 05-06 00:00: 00 Yes 1{tbl} Take 1-2 Tabs by mouth every 6 (six) hours as needed for Pain unrelieved by non-narcot ic analgesics . [facility] HYDROcodone -acetaminop hen (NORCO 5) 5-325 mg tablet 05-06 00:00: 00 Yes 1{tbl} Take 1-2 Tabs by mouth every 6 (six) hours as needed for Pain unrelieved by non-narcot ic analgesics . [facility] HYDROcodone -acetaminop hen (NORCO 5) 5-325 mg tablet 05-06 00:00: 00 Yes 1{tbl} Take 1-2 Tabs by mouth every 6 (six) hours as needed for Pain unrelieved by non-narcot ic analgesics . [facility] HYDROcodone -acetaminop hen (NORCO 5) 5-325 mg tablet 05-06 00:00: 00 Yes 1{tbl} Take 1-2 Tabs by mouth every 6 (six) hours as needed for Pain unrelieved by non-narcot ic analgesics . [facility] cyclobenzap rine (FLEXERIL) 10 mg tablet 03-24 00:00: 00 Yes 10mg Take 1 Tab by mouth 3 (three) times daily. [facility] docusate (COLACE) 100 mg capsule 03-24 00:00: 00 Yes 100mg Take 1 Cap by mouth daily. [facility] HYDROcodone -acetaminop hen (NORCO 5) 5-325 mg tablet 03-24 00:00: 00 Yes 1{tbl} Take 1-2 Tabs by mouth every 6 (six) hours as needed for Pain (scale 7-10). [facility] ibuprofen (MOTRIN) 600 mg tablet 03-24 00:00: 00 Yes 600mg Take 1 Tab by mouth every 6 (six) hours as needed for Pain (scale 1-3). [facility] cyclobenzap rine (FLEXERIL) 10 mg tablet 03-24 00:00: 00 Yes 10mg Take 1 Tab by mouth 3 (three) times daily. [facility] docusate (COLACE) 100 mg capsule 03-24 00:00: 00 Yes 100mg Take 1 Cap by mouth daily. [facility] HYDROcodone -acetaminop hen (NORCO 5) 5-325 mg tablet 03-24 00:00: 00 Yes 1{tbl} Take 1-2 Tabs by mouth every 6 (six) hours as needed for Pain (scale 7-10). [facility] ibuprofen (MOTRIN) 600 mg tablet 03-24 00:00: 00 Yes 600mg Take 1 Tab by mouth every 6 (six) hours as needed for Pain (scale 1-3). [facility] cyclobenzap rine (FLEXERIL) 10 mg tablet 03-24 00:00: 00 Yes 10mg Take 1 Tab by mouth 3 (three) times daily. [facility] docusate (COLACE) 100 mg capsule 03-24 00:00: 00 Yes 100mg Take 1 Cap by mouth daily. [facility] HYDROcodone -acetaminop hen (NORCO 5) 5-325 mg tablet 03-24 00:00: 00 Yes 1{tbl} Take 1-2 Tabs by mouth every 6 (six) hours as needed for Pain (scale 7-10). [facility] ibuprofen (MOTRIN) 600 mg tablet 03-24 00:00: 00 Yes 600mg Take 1 Tab by mouth every 6 (six) hours as needed for Pain (scale 1-3). [facility] (FLEXERIL) 10 mg tablet 03-24 00:00: 00 Yes 10mg Take 1 Tab by mouth 3 (three) times daily. [facility] docusate (COLACE) 100 mg capsule 03-24 00:00: 00 Yes 100mg Take 1 Cap by mouth daily. [facility] HYDROcodone -acetaminop hen (NORCO 5) 5-325 mg tablet 03-24 00:00: 00 Yes 1{tbl} Take 1-2 Tabs by mouth every 6 (six) hours as needed for Pain (scale 7-10). [facility] ibuprofen (MOTRIN) 600 mg tablet 03-24 00:00: 00 Yes 600mg Take 1 Tab by mouth every 6 (six) hours as needed for Pain (scale 1-3). [facility] cyclobenzap rine (FLEXERIL) 10 mg tablet 03-24 00:00: 00 Yes 10mg Take 1 Tab by mouth 3 (three) times daily. [facility] docusate (COLACE) 100 mg capsule 03-24 00:00: 00 Yes 100mg Take 1 Cap by mouth daily. [facility] HYDROcodone -acetaminop hen (NORCO 5) 5-325 mg tablet 03-24 00:00: 00 Yes 1{tbl} Take 1-2 Tabs by mouth every 6 (six) hours as needed for Pain (scale 7-10). [facility] ibuprofen (MOTRIN) 600 mg tablet 03-24 00:00: 00 Yes 600mg Take 1 Tab by mouth every 6 (six) hours as needed for Pain (scale 1-3). [facility] cyclobenzap rine (FLEXERIL) 10 mg tablet 03-24 00:00: 00 Yes 10mg Take 1 Tab by mouth 3 (three) times daily. [facility] docusate (COLACE) 100 mg capsule 03-24 00:00: 00 Yes 100mg Take 1 Cap by mouth daily. [facility] HYDROcodone -acetaminop hen (NORCO 5) 5-325 mg tablet 03-24 00:00: 00 Yes 1{tbl} Take 1-2 Tabs by mouth every 6 (six) hours as needed for Pain (scale 7-10). [facility] ibuprofen (MOTRIN) 600 mg tablet 03-24 00:00: 00 Yes 600mg Take 1 Tab by mouth every 6 (six) hours as needed for Pain (scale 1-3). [facility] cyclobenzap rine (FLEXERIL) 10 mg tablet 03-24 00:00: 00 Yes 10mg Take 1 Tab by mouth 3 (three) times daily. [facility] docusate (COLACE) 100 mg capsule 03-24 00:00: 00 Yes 100mg Take 1 Cap by mouth daily. [facility] HYDROcodone -acetaminop hen (NORCO 5) 5-325 mg tablet 03-24 00:00: 00 Yes 1{tbl} Take 1-2 Tabs by mouth every 6 (six) hours as needed for Pain (scale 7-10). [facility] ibuprofen (MOTRIN) 600 mg tablet 03-24 00:00: 00 Yes 600mg Take 1 Tab by mouth every 6 (six) hours as needed for Pain (scale 1-3). [facility] Vital Signs Vital Name Observation Time Observation Value Comments S eric Systolic blood pressure 2023-02-09 16:37:00 122 mm[Hg] [facility] Diastolic blood pressure 2023-02-09 16:37:00 79 mm[Hg] [facility] Heart rate 2023-02-09 16:37:00 67 /min [facility] Body temperature 2023-02-09 16:37:00 36.61 Divya [facility] Respiratory rate 2023-02-09 16:37:00 18 /min [facility] Body weight 2023-02-09 16:37:00 76.204 kg [facility] BMI 2023-02-09 16:37:00 21.00 kg/m2 [facility] Oxygen saturation in Arterial blood by Pulse oximetry 2023-02-09 16:37:00 99 /min [facility] Systolic blood pressure 2022-11-18 18:45:00 120 mm[Hg] [facility] Diastolic blood pressure 2022-11-18 18:45:00 80 mm[Hg] [facility] Heart rate 2022-11-18 18:45:00 75 /min [facility] Body temperature 2022-11-18 18:45:00 36.61 Divya [facility] Respiratory rate 2022-11-18 18:45:00 20 /min [facility] Body height 2022-11-18 18:45:00 190.5 cm [facility] Body weight 2022-11-18 18:45:00 72.439 kg [facility] BMI 2022-11-18 18:45:00 19.96 kg/m2 [facility] Oxygen saturation in Arterial blood by Pulse oximetry 2022-11-18 18:45:00 95 /min [facility] Systolic blood pressure 2021-01-20 16:53:00 112 mm[Hg] [facility] Diastolic blood pressure 2021-01-20 16:53:00 79 mm[Hg] [facility] Heart rate 2021-01-20 16:53:00 77 /min [facility] Body temperature 2021-01-20 16:53:00 36.33 Divya [facility] Respiratory rate 2021-01-20 16:53:00 21 /min [facility] Body height 2021-01-20 16:53:00 190.5 cm [facility] Body weight 2021-01-20 16:53:00 81.375 kg [facility] BMI 2021-01-20 16:53:00 22.42 kg/m2 [facility] saturation in Arterial blood by Pulse oximetry 2021-01-20 16:53:00 96 /min [facility] Procedures Procedure Date / Time Performed Performing Clinician Source POCT MOLECULAR STREP 2023-02-09 16:48:00 Unknown, Atte nding [facility] POCT MOLECULAR FLU 2023-02-09 16:45:00 Unknown, Attend ing [facility] XR HAND 3+ VW LEFT 2022-11-18 19:30:02 Shana Chasity [facility] CONSENT/REFUSAL FOR DIAGNOSIS AND TREATMENT 2022-11-18 18:36:03 Doctor Unassigned, [place] [facility] ASSIGNMENT OF BENEFITS 2022-11-18 18:35:49 Docto r Unassigned, [place] [facility] STATEMENT OF PATIENT FINANCIAL RESPONSIBILITY 2021-01-20 06:01:00 Doctor Unassigned, [place] [facility] Encounters Start Date/Time End Date/Time Encounter Type Admission Type Attending [facility] Care Facility Care Department Encounter ID Source 2023-02-09 10:20:00 2023-02-09 10:40:00 Urgent Care Mitzi Pitts Unknown, Attending [facility] 1..840.114 350.1.13.10 [id number] [id number] [facility] 2023-02-09 10:20:00 2023-02-09 10:20:00 Outpatient R MITZI PITTS [facility] [id number] [facility] 2023-01-04 14:40:00 2023-01-04 14:40:00 Outpatient R DENY [facility] [id number] [facility] 2022-11-26 00:00:00 2022-11-26 00:00:00 Patient Secure Msg Doctor Unassigned, [place] [facility] 1.840.114 350.1.13.10 4.2.7.2.686 [id number] [facility] 2022-11-18 13:53:38 2022-11-18 23:59:00 Hospital Encounter Chasity Saldana [facility] 1..840.114 350.1.13.10 4.2.7.2.686 [id number] [facility] 2022-11-18 13:53:38 2022-11-18 23:59:00 Outpatient R CHASITY SALDANA [facility] [id number] [facility] 2022-11-18 13:20:00 2022-11-18 13:40:00 Urgent Care Chasity Saldana Unknown, Attending [facility] 1.114 350.1.13.10 4.2.7.2.686 [id number] [facility] 2022-11-18 00:00:00 2022-11-18 00:00:00 Orders Only Doctor Unassigned, [place] [facility] 1.114 350.1.13.10 4.2.7.2.686 [id number] [facility] 2021-01-20 11:00:00 2021-01-20 11:25:26 Outpatient R KALYANI STALLWORTH [facility] [id number] [facility] 2021-01-20 10:45:09 2021-01-20 11:25:26 Urgent Care Kalyani Stallworth Yesenia Urias [facility] 1.114 350.1.13.10 4.2.7.2.686 [id number] [facility] 2021-01-20 00:00:00 2021-01-20 00:00:00 Orders Only Doctor Unassigned, [place] [facility] 1.114 350.1.13.10 4.2.7.2.686 [id number] [facility] 2020-04-29 00:00:00 2020-04-29 00:00:00 Telephone Marjorie Schmidt [facility] 1.114 350.1.13.10 4.2.7.2.686 [id number] 2019-02-22 14:17:16 2019-02-22 19:56:00 Emergency X [facility]A [facility] [id number] [facility] Results Test Description Test Time Test Comments Results Result Co [facility]ments Source [id number] 16:57:06* Test Item Value Reference Range Interpretation Comme nts POCT Molecular Strep (test c ode = 27933-2) Negative Negative Lab Interpretation (test cod e = [id number]) Normal [facility]
[2023-04-06 03:19] LABS: Absolute Lymphocytes (CBC) 3.5 K/uL (0.7-4.9); Hematocrit 44.6 % (39.6-49.0); MCV 85.2 fL (80-100); MPV 7.2 fL (7.6-11.3); Platelets 230 thou/uL (152-406); RBC Red Blood Cell Count 5.24 M/uL (4.33-5.43)
[2023-04-06 03:37] LABS: ALT/SGPT 37 U/L (16-61); AST/SGOT 16 U/L (15-37); Albumin 3.7 g/dL (3.4-5.0); Alkaline Phosphatase 90 U/L (45-117); BUN Blood Urea Nitrogen 15 mg/dL (7-18); Bicarbonate 25 mEq/L (21-32); Bilirubin Total 0.2 mg/dL (0.2-1.0); Glomerular Filtration Rate 104 ml/min (=/>90); Glucose Level 109 mg/dL (74-106); Potassium 3.7 mEq/L (3.5-5.1); Protein, Total 7.3 g/dL (6.4-8.2); Sodium Level 136 mEq/L (136-145)
[2023-04-06 04:02] LABS: Bilirubin Direct < 0.1 mg/dL (0-0.2); Bilirubin Indirect, Calculated ND mg/dL (0.2-0.8)
--- NOTE | 2023-04-06 05:41 | ER ---
Nurse's Notes [facility] Name: Irving Tan Age: 42 yrs Sex: Male : 1980 Arrival Date: 04/06/2023 Time: 01:56 Bed 5 Private MD: Diagnosis: Tension-type headache Presentation: 04/06 03:00 Chief complaint: Patient states: I had covid a week and a half ago and for the last 3 vc1 days I have had the worst headache of my life. Coronavirus screen: Vaccine status: Patient reports being unvaccinated. Client denies travel out of the [place] in the last 14 days. At this time, the client does not indicate any symptoms associated with coronavirus-19. Ebola Screen: Patient negative for fever greater than or equal to 101.5 degrees Fahrenheit, and additional compatible Ebola Virus Disease symptoms Patient denies exposure to infectious person. Patient denies travel to an Ebola-affected area in the 21 days before illness onset. No symptoms or risks identified at this time. Initial Sepsis Screen: Does the patient meet any 2 criteria? No. Patient's initial sepsis screen is negative. Does the patient have a suspected source of infection? No. Patient's initial sepsis screen is negative. Risk Assessment: Do you want to hurt yourself or someone else? Patient reports no desire to harm self or others. Onset of symptoms was April 03, 2023. 03:00 Method Of Arrival: Ambulatory vc1 03:00 Acuity: JACLYN 4 vc1 Triage Assessment: 03:05 Headache History: The patient has had previous headaches and this one is different than 1 previous episodes, and this one is more severe than previous episodes. General: Appears in no apparent distress. uncomfortable, slender, Behavior is cooperative, quiet. Pain: Complains of pain in occipital area and base of the skull Pain does not radiate. Pain currently is 9 out of 10 on a pain scale. at worst was 10 out of 10 on a pain scale. Quality of pain is described as pressure, sharp, Pain began 2-3 days ago. Is continuous, Aggravated by light Noted to be grimacing, quiet/stoic, resistant to movement, covering eyes from light Also complains of nausea. EENT: No deficits noted. No signs and/or symptoms were reported regarding the EENT system. Neuro: Level of Consciousness is awake, alert, obeys commands, Oriented to person, place, time, situation, Appropriate for age Reports headache occipital area, that is the "worst ever". Cardiovascular: No deficits noted. Respiratory: Airway is patent Respiratory effort is even, unlabored, Respiratory pattern is regular, symmetrical. GI: No deficits noted. No signs and/or symptoms were reported involving the gastrointestinal system. GI: No deficits noted. No signs and/or symptoms were reported involving the gastrointestinal system. : No deficits noted. No signs and/or symptoms were reported regarding the genitourinary system. Derm: No deficits noted. No signs and/or symptoms reported regarding the dermatologic system. Musculoskeletal: No deficits noted. No signs and/or symptoms reported regarding the musculoskeletal system. Historical: - Allergies: 03:03 No Known Allergies; vc1 - Home Meds: 03:03 None [Active]; vc1 - PMHx: 03:03 Kidney stone; vc1 - PSHx: 03:03 None; vc1 - Immunization history:: Client reports having NOT received the Covid vaccine. Flu vaccine is not up to date. - Social history:: Smoking status: Patient reports the use of cigarette tobacco products, smokes one pack cigarettes per day. - Family history:: not pertinent. Screenin:07 [facility] ED Fall Risk Assessment (Adult) History of falling in the last 3 months, vc1 including since admission No falls in past 3 months (0 pts) Confusion or Disorientation No (0 pts) Intoxicated or Sedated No (0 pts) Impaired Gait No (0 pts) Mobility Assist Device Used No (0 pt) Altered Elimination No (0 pt) Score/Fall Risk Level 0 - 2 = Low Risk Oriented to surroundings, Maintained a safe environment, Educated pt \\T\\ family on fall prevention, incl call for assistance when getting out of bed. Abuse screen: Denies threats or abuse. Nutritional screening: No deficits noted. Tuberculosis screening: No symptoms or risk factors identified. Assessment: 03:05 Reassessment: SEE TRIAGE ASSESSMENT. jj7 Vital Signs: 03:00 BP 106 / 67; Pulse 80; Resp 18; Temp 98.3; Pulse Ox 95% ; Weight 99.79 kg; Height 6 ft. vc1 4 in. ; Pain 9/10; 04:12 BP 118 / 78; Pulse 62; Resp 17; Pulse Ox 97% ; Pain 0/10; jj7 05:19 BP 129 / 94; Pulse 73; Resp 17; Pulse Ox 96% ; Pain 0/10; jj7 03:00 Body Mass Index 26.78 (99.79 kg, 193.04 cm) vc1 03:00 Pain Scale: Adult vc1 04:12 Pain Scale: Adult jj7 05:19 Pain Scale: Adult jj7 Janice Coma Score: 05:36 Eye Response: spontaneous(4). Motor Response: obeys commands(6). Verbal Response: sp4 oriented(5). Total: 15. ED Course: 02:04 Patient arrived in ED. gm2 02:09 Guanako Mcqueen MD is Attending Physician. sp4 03:00 Inserted saline lock: 20 gauge in right wrist, using aseptic technique. Blood collected.jj7 03:03 Triage completed. vc1 03:04 Arm band placed on right wrist. vc1 03:07 Patient has correct armband on for positive identification. Bed in low position. Call vc1 light in reach. Pulse ox on. NIBP on. 03:09 Basic Metabolic Panel Sent. jj7 03:09 CBC with Diff Sent. jj7 03:09 LFT's Sent. jj7 05:09 CT Head Brain wo Cont In Process Unspecified. EDMS 05:50 No provider procedures requiring assistance completed. IV discontinued, intact, jj7 bleeding controlled, No redness/swelling at site. Pressure dressing applied. Administered Medications: 03:09 Drug: morphine IVP or IV 4 mg IVP once over 4 mins Route: IVP; Infused Over: 4 mins; jj7 Site: right wrist; 04:14 Follow up: Response: Marked relief of symptoms jj7 03:10 Drug: metoCLOPramide IVP 10 mg IVP once; over 1 to 2 minutes Route: IVP; Site: right jj7 wrist; 04:14 Follow up: Response: Marked relief of symptoms jj7 03:10 Drug: Ketorolac IVP 30 mg IVP once Route: IVP; Site: right wrist; jj7 04:14 Follow up: Response: Marked relief of symptoms jj7 03:10 Drug: diphenhydrAMINE IVP 25 mg IVP once Route: IVP; Site: right wrist; jj7 04:14 Follow up: Response: Marked relief of symptoms jj7 Medication: 03:07 VIS not applicable for this client. vc1 Outcome: 05:40 Discharge ordered by . dana 05:50 Discharged to home ambulatory, bill 05:50 Condition: improved 05:50 Discharge instructions given to patient, Instructed on discharge instructions, medication usage, Demonstrated understanding of instructions, medications, Prescriptions given X 1, 05:51 Patient left the ED. jj7 Signatures: Dispatcher [employer] EDMS Jeaneth Nevarez RN RN vc1 Arnold Heck RN RN jj7 Guanako Mcqueen MD MD sp4 [facility]
--- NOTE | 2023-04-06 05:41 | EDPHYS ---
Physician Documentation [facility] Name: Irving Tan Age: 42 yrs Sex: Male : 1980 Arrival Date: 04/06/2023 Time: 01:56 Bed 5 Private MD: ED Physician Guanako Mcqueen HPI: 04/06 02:09 This 42 yrs old Male presents to ER via Unassigned with complaints of sp4 Headache. 05:36 Patient presents with moderate to severe headache. Headache started 3 days ago and is sp4 located on the posterior headache. Patient states he tried multiple medicines today without effect. . Historical: - Allergies: 03:03 No Known Allergies; vc1 - Home Meds: 03:03 None [Active]; vc1 - PMHx: 03:03 Kidney stone; vc1 - PSHx: 03:03 None; vc1 - Immunization history:: Client reports having NOT received the Covid vaccine. Flu vaccine is not up to date. - Social history:: Smoking status: Patient reports the use of cigarette tobacco products, smokes one pack cigarettes per day. - Family history:: not pertinent. ROS: 05:36 Constitutional: Negative for fever, chills, and weight loss, positive posterior sp4 headache 05:36 All other systems are negative, Exam: 05:36 Constitutional: This is a well developed, well nourished patient who is awake, alert, sp4 and in no acute distress. Head/Face: Normocephalic, atraumatic. Eyes: Pupils equal round and reactive to light, extra-ocular motions intact. Lids and lashes normal. Conjunctiva and sclera are not injected. Cornea within normal limits. Periorbital areas with no swelling, redness, or edema. ENT: Nares patent. No nasal discharge, no septal abnormalities noted. Tympanic membranes are normal and external auditory canals are clear. Oropharynx with no redness, swelling, or masses, exudates, or evidence of obstruction, uvula midline. Mucous membranes moist. Neck: Trachea midline, no thyromegaly or masses palpated, and no cervical lymphadenopathy. Supple, full range of motion without nuchal rigidity, or vertebral point tenderness. Chest/axilla: Normal chest wall appearance and motion. Nontender with no deformity. No lesions are appreciated. Cardiovascular: Regular rate and rhythm with a normal S1 and S2. No gallops, murmurs, or rubs. Normal PMI, no JVD. No pulse deficits. Respiratory: Lungs have equal breath sounds bilaterally, clear to auscultation and percussion. No rales, rhonchi or wheezes noted. No increased work of breathing, no retractions or nasal flaring. Abdomen/GI: Soft, non-tender, with normal bowel sounds. No distension or tympany. No guarding or rebound. No evidence of tenderness throughout. Back: No spinal tenderness. No costovertebral tenderness. Skin: Warm, dry with normal turgor. Normal color with no rashes, no lesions, and no evidence of cellulitis. MS/ Extremity: Pulses equal, no cyanosis. Neurovascular intact. Full, normal range of motion. Neuro: Awake and alert, GCS 15, oriented to person, place, time, and situation. Cranial nerves II-XII grossly intact. Motor strength 5/5 in all extremities. Sensory grossly intact. Psych: Awake, alert, with orientation to person, place and time. Behavior, mood, and affect are within normal limits Vital Signs: 03:00 BP 106 / 67; Pulse 80; Resp 18; Temp 98.3; Pulse Ox 95% ; Weight 99.79 kg; Height 6 ft. vc1 4 in. ; Pain 9/10; 04:12 BP 118 / 78; Pulse 62; Resp 17; Pulse Ox 97% ; Pain 0/10; jj7 05:19 BP 129 / 94; Pulse 73; Resp 17; Pulse Ox 96% ; Pain 0/10; jj7 03:00 Body Mass Index 26.78 (99.79 kg, 193.04 cm) vc1 03:00 Pain Scale: Adult vc1 04:12 Pain Scale: Adult jj7 05:19 Pain Scale: Adult jj7 [place] Coma Score: 05:36 Eye Response: spontaneous(4). Motor Response: obeys commands(6). Verbal Response: sp4 oriented(5). Total: 15. MDM: 02:17 Patient medically screened. sp4 05:36 Differential diagnosis: cluster headache, hypertensive headache, migraine, sinusitis, sp4 subdural hematoma, vasomotor headache. Data reviewed: vital signs, nurses notes, lab test result(s), radiologic studies, CT scan. Consideration of Admission/Observation Escalation of care including admission/observation considered. ED course: CT today is unremarkable. Patient stable for discharge home, headache resolved. 04/06 02:44 Order name: Basic Metabolic Panel; Complete Time: 04:28 sp4 04/06 02:44 Order name: CBC with Diff; Complete Time: 04:28 sp4 04/06 02:44 Order name: LFT's; Complete Time: 04:28 sp4 04/06 02:44 Order name: Alcohol Level; Complete Time: 04:28 sp4 04/06 04:28 Order name: CT Head Brain wo Cont sp4 04/06 02:44 Order name: Saline Lock; Complete Time: 03:09 sp4 04/06 02:44 Order name: IV Saline Lock; Complete Time: 03:09 sp4 04/06 02:44 Order name: Labs collected and sent; Complete Time: 03:09 sp4 Administered Medications: 03:09 Drug: morphine IVP or IV 4 mg IVP once over 4 mins Route: IVP; Infused Over: 4 mins; jj7 Site: right wrist; 04:14 Follow up: Response: Marked relief of symptoms jj7 03:10 Drug: metoCLOPramide IVP 10 mg IVP once; over 1 to 2 minutes Route: IVP; Site: right j wrist; 04:14 Follow up: Response: Marked relief of symptoms jj7 03:10 Drug: Ketorolac IVP 30 mg IVP once Route: IVP; Site: right wrist; jj7 04:14 Follow up: Response: Marked relief of symptoms jj7 03:10 Drug: diphenhydrAMINE IVP 25 mg IVP once Route: IVP; Site: right wrist; jj7 04:14 Follow up: Response: Marked relief of symptoms jj7 Disposition Summary: 04/06/23 05:40 Discharge Ordered Notes: Location: Home sp4 Problem: new sp4 Symptoms: have improved sp4 Condition: Stable sp4 Diagnosis - Tension-type headache sp4 Followup: sp4 - With: Private Physician - When: 7 - 10 days - Reason: Recheck today's complaints Discharge Instructions: - Discharge Summary Sheet sp4 - General Headache Without Cause sp4 Forms: - Patient Portal Instructions sp4 Prescriptions: - Fioricet 50-300-40 mg Oral capsule - take 1 capsule ORAL route every 6 hours PRN headache; 30 capsule; Refills: 0, sp4 Product Selection Permitted Signatures: Dispatcher [employer] Jeaneth Arnett RN RN vc1 Arnold Heck RN RN jj7 Guanako Mcqueen MD MD sp4
[2023-04-06 10:04] VITALS: BP 129/94; TEMP 98.3; O2SAT 96
--- NOTE | 2023-04-06 17:26 | RAD REPORT ---
EXAM DESCRIPTION: CT - Head Brain Wo Cont - 04/06/2023 7:13 am CLINICAL HISTORY: New onset headache COMPARISON: None Contiguous noncontrast axial images of the head were obtained. Sagittal and coronal reformatted image s are generated for review. This exam was performed according to our departmental dose-optimization p rogram, which includes automated exposure control, adjustment of the mA and/or kV according to patien t size and/or use of iterative reconstruction technique. FINDINGS: BRAIN/VENTRICLES: There is no acute intracranial hemorrhage, mass effect or midline shift. No abnormal extra-axial fluid collections. The gregg-white differentiation is maintained without evid ence of acute infarct. There is no evidence of hydrocephalus. ORBITS: The visualized portions of the orbits demonstrate no acute abnormality. SINUSES: The visualized paranasal sinuses and mastoid air cells demonstrate no acute abnormality. SOFT TISSUE/SKULL: No acute abnormality of the visualized skull or soft tissues. IMPRESSION: No acute intracranial abnormality. RECOMMENDATIONS: Electronically signed by: Kush Carmen MD 04/06/2023 07:06 AM PULL WORKER Due to temporary technical issues with the PACS/Fluency reporting system, reports are being signed by the in house radiologists without review as a courtesy to insure prompt reporting. The interpreting radiologist is fully responsible for the content of the report.
== END ==
LOC: ER 01:56
DX: G44.209 Tension-type headache, unspecified, not intractable (principal); F17.210 Nicotine dependence, cigarettes, uncomplicated; Z28.310 Unvaccinated for COVID-19
CPT/HCPCS: 85025; 80048; 36415; 80076; 70450; 82077; J2765; J1200

== ENCOUNTER 2023-08-27 16:08 | Emergency (ER) | payer OTHER ==
--- OUTSIDE RECORDS SUMMARY | 2023-08-27 16:12 | XMS REPORT | Continuity of Care Document ---
Author Name Unknown Address [address] [facility]. [address] [place] [address] [facility] thconnect Address [address] [facility] [address] [place] [address] Care Team Providers Care Traffic Safety Administrator Name Role Phone KAREN CHIU Primary Care Physician Unavailab Mitzi Gonzalez Attending Clinician [phone] Unknown, Attending Attending Clinician Unavailab MITZI Jurado Attending Clinician Unavailable TEE BARCLAY Attending Clinician Unavailable Doctor Unassigned, [place] Attending Clinician U Chasity Chakraborty PA-C Attending Clinician [phone] CHASITY CARLIN Attending Clinician Unavailable KALYANI STALLWORTH Attending Clinician Unavailabl e Shellyaglucie BLANCHARD, Omayemi Attending Clinician [phone] Yesenia Urias MD Attending Clinician [phone] Marjorie Schmidt MD Attending Clinician [phone] MARQUISE RICHARDSON Attending Clinician Unavailable MARQUISE RICHARDSON Admitting Clinician Unavailable Payers Payer Name Policy Type Policy Number Effective Date Expirati on Date Source [employer] [place] [id number] 2022 00:00:00 Problems Condition Name Condition Details Condition Category Status Onset Date Resolution Date Last Treatment Date Treating Clinician Comments Source Muscle spasm of back Muscle spasm of back Disease Active 03-24 00:00: 00 [facility] Allergies, Adverse Reactions, Alerts Allergy Name Allergy Type Status Severity Reaction(s) Onset Date Inactive Date Treating Clinician Comments Source No Known Drug Allergie s Propensi ty to adverse reaction s Active Unknown - See comments 09-21 00:00: 00 None [facility] NO KNOWN DRUG ALLERGIE S Drug Class Active Unknown-Cmnt 09-21 00:00: 00 [facility] Social History Social Habit Start Date Stop Date Quantity Comments Source History of tobacco use 1998-01-13 00:00:00 Cigarette Smoker [facility] Exposure to SARS-CoV-2 (event) Not sure [facility] Alcohol intake 2023-02-09 00:00:00 2023-02-09 00:00:00 0 /d [facility] History of Social function 2023-02-09 00:00:00 2023-02-09 00:00:00 [facility] Cigarettes smoked current (pack per day) - Reported 2022-11-18 00:00:00 2022-11-18 00:00:00 [facility] Cigarette pack-years 2022-11-18 00:00:00 2022-11-18 00:00:00 [facility] Tobacco use and exposure 2022-11-18 00:00:00 2022-11-18 00:00:00 Smokeless tobacco non-user [facility] Sex Assigned At 1980 00:00:00 1980 00:00:00 [facility] Smoking Status Start Date Stop Date Source Smokes tobacco daily 2022-11-18 00:00:00 [facility] Medications Ordered Medication Name Filled Medication Name Start Date Stop Date Current Medication? Ordering Clinician Indication Dosage Frequency Signature (SIG) Comments Components Source albuterol 90 mcg/actuati on inhaler 2022-03 00:00: 00 Yes [id number] 2{puff} Inhale 2 Puffs every 6 (six) hours as needed for Wheezing, Shortness of Breath, Bronchospa sm or Chest tightness. [facility] bromphenira mine-pseudo ephedrine-D M (BROMFED DM) 2-30-10 mg/5 mL syrup 2022-03 00:00: 00 02-20 05:59 :00 No [id number] 10mL Take 10 mL by mouth 4 (four) times daily for 10 days. [facility] cetirizine (ZYRTEC) 10 mg tablet 2022-03 2 00:00: 00 02-20 05:59 :00 No [id number] 10mg Take 1 tablet by mouth in the morning for 10 days. [facility] ibuprofen 800 mg tablet 11-18 00:00: 00 Yes [id number] 800mg Take 1 tablet by mouth in the morning and 1 tablet at noon and 1 tablet in the evening. Take with meals. [facility] amoxicillin 500 mg tablet 2020-03 00:00: 00 01-31 05:59 :00 No [id number] 500mg Take 1 tablet by mouth 2 (two) times daily for 10 days. [facility] bromphenira mine-pseudo ephedrine-D M (BROMFED DM) 2-30-10 mg/5 mL syrup 2020-03 00:00: 00 01-31 05:59 :00 No [id number] 5mL Take 5 mL by mouth 4 (four) times daily as needed for Cold symptoms for up to 10 days. [facility] amoxicillin -clavulanat e 875-125 mg per tablet 04-29 00:00: 00 Yes [id number] 1{tbl} Take 1 tablet by mouth every 12 (twelve) hours. [facility] acetaminoph en-codeine 300-30 mg tablet 2018-03 00:00: 00 Yes [id number] 1{tbl} Take 1 tablet by mouth every 6 (six) hours as needed for Pain (scale 4-6) or Pain (scale 7-10). [facility] codeine-gua ifenesin 10-100 mg/5 mL solution 05 00:00: 00 Yes 5mL Take 5 mL by mouth every 6 (six) hours as needed for Cough. [facility] peg-electro lyte soln (GOLYTELY) 236-22.74-6 .74 -5.86 gram solution 2015-03 00:00: 00 Yes [id number] Take as directed before colonoscop y [facility] hyoscyamine (LEVSIN) 0.125 mg tablet 2015-03 00:00: 00 Yes .125mg Take 1 tablet by mouth every 4 (four) hours as needed for Pain (scale 4-6) or Nausea and Vomiting (N/V). [facility] proMETHazin e (PHENERGAN) 25 mg tablet 2015-03 00:00: 00 Yes 25mg Take 1 tablet by mouth every 6 (six) hours as needed for Nausea and Vomiting (N/V). [facility] ciprofloxac in HCl (CIPRO) 500 mg tablet 2015-03 00:00: 00 Yes 500mg Take 1 tablet by mouth 2 (two) times daily. [facility] acetaminoph en-codeine (TYLENOL #3) 300-30 mg tablet 2015-03 00:00: 00 Yes 1{tbl} Take 1 tablet by mouth every 4 (four) hours as needed for Pain unrelieved by non-narcot ic analgesics . [facility] traMADOL (ULTRAM) 50 mg tablet 10-23 00:00: 00 Yes 50mg Take 1 Tab by mouth every 6 (six) hours as needed for Pain (scale 7-10). [facility] ibuprofen (MOTRIN) 600 mg tablet 05-22 00:00: 00 Yes 600mg Take 1 Tab by mouth every 6 (six) hours as needed for Pain (scale 1-3). [facility] HYDROcodone -acetaminop hen (NORCO 5) 5-325 mg tablet 05-22 00:00: 00 Yes 1{tbl} Take 1 Tab by mouth every 6 (six) hours as needed for Pain (scale 4-6). [facility] HYDROcodone -acetaminop hen (NORCO 5) 5-325 mg tablet 05-06 00:00: 00 Yes 1{tbl} Take 1-2 Tabs by mouth every 6 (six) hours as needed for Pain unrelieved by non-narcot ic analgesics . [facility] cyclobenzap rine (FLEXERIL) 10 mg tablet 03-24 00:00: 00 Yes 10mg Take 1 Tab by mouth 3 (three) times daily. [facility] docusate (COLACE) 100 mg capsule 03-24 00:00: 00 Yes 100mg Take 1 Cap by mouth daily. [facility] HYDROcodone -acetaminop hen (NORCO 5) 5-325 mg tablet 03-24 00:00: 00 Yes 1{tbl} Take 1-2 Tabs by mouth every 6 (six) hours as needed for Pain (scale 7-10). [facility] ibuprofen (MOTRIN) 600 mg tablet 03-24 00:00: 00 Yes 600mg Take 1 Tab by mouth every 6 (six) hours as needed for Pain (scale 1-3). [facility] Vital Signs Vital Name Observation Time Observation Value Comments S eric Systolic blood pressure 2023-02-09 16:37:00 122 mm[Hg] [facility] Diastolic blood pressure 2023-02-09 16:37:00 79 mm[Hg] [facility] Heart rate 2023-02-09 16:37:00 67 /min [facility] Body temperature 2023-02-09 16:37:00 36.61 Divya [facility] Respiratory rate 2023-02-09 16:37:00 18 /min [facility] Body weight 2023-02-09 16:37:00 76.204 kg [facility] BMI 2023-02-09 16:37:00 21.00 kg/m2 [facility] Oxygen saturation in Arterial blood by Pulse oximetry 2023-02-09 16:37:00 99 /min [facility] Diastolic blood pressure 2022-11-18 18:45:00 80 mm[Hg] [facility] Heart rate 2022-11-18 18:45:00 75 /min [facility] Body temperature 2022-11-18 18:45:00 36.61 Divya [facility] Respiratory rate 2022-11-18 18:45:00 20 /min [facility] Body height 2022-11-18 18:45:00 190.5 cm [facility] Body weight 2022-11-18 18:45:00 72.439 kg [facility] BMI 2022-11-18 18:45:00 19.96 kg/m2 [facility] Oxygen saturation in Arterial blood by Pulse oximetry 2022-11-18 18:45:00 95 /min [facility] Systolic blood pressure 2022-11-18 18:45:00 120 mm[Hg] [facility] Systolic blood pressure 2021-01-20 16:53:00 112 mm[Hg] [facility] Diastolic blood pressure 2021-01-20 16:53:00 79 mm[Hg] [facility] Heart rate 2021-01-20 16:53:00 77 /min [facility] Body temperature 2021-01-20 16:53:00 36.33 Divya [facility] Respiratory rate 2021-01-20 16:53:00 21 /min [facility] Body height 2021-01-20 16:53:00 190.5 cm [facility] Body weight 2021-01-20 16:53:00 81.375 kg [facility] BMI 2021-01-20 16:53:00 22.42 kg/m2 [facility] Oxygen saturation in Arterial blood by Pulse oximetry 2021-01-20 16:53:00 96 /min [facility] Procedures Procedure Date / Time Performed Performing Clinician Source POCT MOLECULAR STREP 2023-02-09 16:48:00 Unknown, Atte devoning [facility] POCT MOLECULAR FLU 2023-02-09 16:45:00 Unknown, Attend ing [facility] XR HAND 3+ VW LEFT 2022-11-18 19:30:02 Chasity Carlin [facility] CONSENT/REFUSAL FOR DIAGNOSIS AND TREATMENT 2022-11-18 18:36:03 Doctor Unassigned, [place] [facility] ASSIGNMENT OF BENEFITS 2022-11-18 18:35:49 Docto r Unassigned, [place] [facility] STATEMENT OF PATIENT FINANCIAL RESPONSIBILITY 2021-01-20 06:01:00 Doctor Unassigned, [place] [facility] Encounters Start Date/Time End Date/Time Encounter Type Admission Type Attending Clinicians Care Facility Care Department Encounter ID Source 2023-02-09 10:20:00 2023-02-09 10:40:00 Urgent Care Mitzi Padilla Unknown, Attending [facility] [id number] 350.1.13.10 4.2.7.2.686 [id number] [facility] 2023-02-09 10:20:00 2023-02-09 10:20:00 Outpatient R MITZI PADILLA [facility] [id number] [facility] 2023-01-04 14:40:00 2023-01-04 14:40:00 Outpatient TEE SCOTT [facility] [id number] [facility] 2022-11-26 00:00:00 2022-11-26 00:00:00 Patient Secure Msg Doctor Unassigned, [place] [facility] 1..840.114 350.1.13.10 4.2.7.2.686 [id number] [facility] 2022-11-18 13:53:38 2022-11-18 23:59:00 Hospital Encounter Chasity Carlin [facility] [id number] 350.1.13.10 4.2.7.2.686 [id number] [facility] 2022-11-18 13:53:38 2022-11-18 23:59:00 Outpatient R TESFAYE [facility] [id number] [facility] 2022-11-18 13:20:00 2022-11-18 13:40:00 Urgent Care Chasity Carlin Unknown, Attending [facility] [id number] 350.1.13.10 4.2.7.2.686 [id number] [facility] 2022-11-18 00:00:00 2022-11-18 00:00:00 Orders Only Doctor Unassigned, [place] [facility] [id number] 350.1.13.10 4.2.7.2.686 [id number] [facility] 2021-01-20 11:00:00 2021-01-20 11:25:26 Outpatient R SHELLYTRACYJECyrusKALYANI [facility] [id number] [facility] 2021-01-20 10:45:09 2021-01-20 11:25:26 Urgent Care Kalyani Stallworth Amanda [facility] 1..840.114 350.1.13.10 4.2.7.2.686 [id number] [facility] 2021-01-20 00:00:00 2021-01-20 00:00:00 Orders Only Doctor Unassigned, [place] [facility] 1.2840.114 350.1.13.10 4.2.7.2.686 [id number] [facility] 2020-04-29 00:00:00 2020-04-29 00:00:00 Telephone Marjorie Schmidt [facility] [id number] 350.1.13.10 4.2.7.2.686 [id number] 2019-02-22 14:17:16 2019-02-22 19:56:00 Emergency X MARQUISE RICHARDSON [facility] ERT [id number] [facility] Results Test Description Test Time Test Comments Results Result Co mments Source [facility] [id number] 16:57:06* Test Item Value Reference Range Interpretation Comme nts POCT Molecular Strep (test c ode = 28020-3) Negative Negative Lab Interpretation (test cod e = [id number]) Normal [facility]
[2023-08-27] MEDS ORDERED: METOCLOPRAMIDE 10 MG/2mL INJ ONE (18:40)
[2023-08-27] MEDS ORDERED: DIPHENHYDRAMINE 50 MG/ML VIAL ONE (18:40)
[2023-08-27] MEDS ORDERED: NA CHLORIDE 0.9% 1,000 ML ONE (18:41)
[2023-08-27 18:48] LABS: Absolute Basophils 0.1 K/uL (0-0.5); Absolute Eosinophils 0.3 K/uL (0-0.5); Absolute Lymphocytes (CBC) 3.5 K/uL (0.7-4.9); Absolute Monocytes 1.1 K/uL (0.1-1.3); Absolute Neutrophil 6.1 K/uL (1.8-8.0); Basophils % 1.1 % (0-1.3); Hematocrit 50.6 % (39.6-49.0); Hemoglobin 17.2 g/dL (13.6-17.9); Lymphocytes % 31.5 % (15.3-44.8); MCH 29.5 pg (27.0-35.0); MCHC 33.9 g/dL (32.0-36.0); MPV 6.7 fL (7.6-11.3); Monocytes % 10.2 % (3.3-12.3); Neutrophils % 54.2 % (41.7-73.7); Platelets 285 thou/uL (152-406); RBC Red Blood Cell Count 5.81 M/uL (4.33-5.43); Red Cell Distribution Width 13.6 % (12.1-15.2)
[2023-08-27 19:08] LABS: ALT/SGPT 18 U/L (16-61); Albumin 4.6 g/dL (3.4-5.0); Albumin/Globulin Ratio 1.2 (1.1-1.8); Alkaline Phosphatase 84 U/L (45-117); Anion Gap 6.3 mEq/L (5.0-15.0); BUN Blood Urea Nitrogen 12 mg/dL (7-18); Bicarbonate 29 mEq/L (21-32); Bilirubin Total 0.6 mg/dL (0.2-1.0); Globulin 3.7 g/dL (2.3-3.5); Glomerular Filtration Rate 108 ml/min (=/>90); Glucose Level 97 mg/dL (74-106); Potassium 4.3 mEq/L (3.5-5.1); Protein, Total 8.3 g/dL (6.4-8.2); Sodium Level 138 mEq/L (136-145)
[2023-08-27 19:09] LABS: AST/SGOT < 10 U/L (15-37)
[2023-08-27] MEDS ORDERED: dexAMETHasone 10 MG/ML VIAL ONE (19:37)
[2023-08-27 20:06] LABS: Specific Gravity 1.008 (1.005-1.030); Sqamous Epithelial None Seen /HPF (None Seen); Urine Bacteria None Seen /HPF (<20); Urine Bilirubin NEGATIVE (Negative); Urine Blood Negative (Negative); Urine Clarity Clear (Clear); Urine Color Colorless (Yellow); Urine Culture Reflex Order NOT NEEDED; Urine Glucose NEGATIVE (Negative); Urine Ketones NEGATIVE (Negative); Urine Micro Reflex YN NO BILL MICROSCOPIC; Urine Nitrite NEGATIVE (Negative); Urine Protein NEGATIVE (Negative); Urine RBC <5 /HPF (None Seen); Urine Urobilinogen Normal (Normal); Urine WBC <5 /HPF (<5); Urine pH 6.5 (5.0-7.0)
--- NOTE | 2023-08-27 20:38 | ER ---
Nurse's Notes [facility] Name: Irving Tan Age: 42 yrs Sex: Male : 1980 Arrival Date: 08/27/2023 Time: 16:08 Bed 8 Private MD: Diagnosis: Headache Presentation: 08/26 16:22 Chief complaint: Patient states: he has had a headache for approx 3 days that he can't ap3 get rid of. patient rates his pain as a 10/10 on the pain scale at this time. patient reports nausea but no vomiting at this time. Coronavirus screen: At this time, the client does not indicate any symptoms associated with coronavirus-19. Ebola Screen: No symptoms or risks identified at this time. Initial Sepsis Screen: Does the patient meet any 2 criteria? No. Patient's initial sepsis screen is negative. Does the patient have a suspected source of infection? No. Patient's initial sepsis screen is negative. Risk Assessment: Do you want to hurt yourself or someone else? Patient reports no desire to harm self or others. Onset of symptoms was August 24, 2023. 16:22 Method Of Arrival: Ambulatory ap3 16:22 Acuity: JACLYN 3 ap3 Triage Assessment: 16:24 Headache History: The patient has had previous headaches and this one is similar to ap3 previous episodes. General: Appears uncomfortable, Behavior is calm, cooperative, appropriate for age. Pain: Complains of pain in scalp Pain currently is 10 out of 10 on a pain scale. Pain began 2-3 days ago. Also complains of nausea. Neuro: Reports headache occipital area, since 3 days ago. Cardiovascular: Patient's skin is warm and dry. Respiratory: Airway is patent Respiratory effort is even, unlabored, Respiratory pattern is regular, symmetrical. GI: Reports nausea. Historical: - Allergies: 16:23 No Known Allergies; ap3 - Home Meds: 16:23 None [Active]; ap3 - PMHx: 16:23 Kidney stone; ap3 - Immunization history:: Client reports having NOT received the Covid vaccine. - Infectious Disease History:: Denies. - Social history:: Smoking status: Patient reports the use of cigarette tobacco products, smokes one-half pack cigarettes per day, Patient uses street drugs, marijuana. Screenin:[facility] Fall Risk Assessment (Adult) History of falling in the last 3 months, ap3 including since admission No falls in past 3 months (0 pts) Confusion or Disorientation No (0 pts) Intoxicated or Sedated No (0 pts) Impaired Gait No (0 pts) Mobility Assist Device Used No (0 pt) Altered Elimination No (0 pt) Score/Fall Risk Level 0 - 2 = Low Risk Oriented to surroundings, Maintained a safe environment, Educated pt \T\ family on fall prevention, incl call for assistance when getting out of bed, Assessed \T\ reinforced patient's understanding of fall precautions, Provided non-skid footwear, Hourly rounding (assess needs \T\ fall precautionary measures) done, Used ambulatory aids as needed (educated on \T\ assisted with), Used gait belt as appropriate. Abuse screen: Denies threats or abuse. Nutritional screening: No deficits noted. Tuberculosis screening: No symptoms or risk factors identified. Assessment: 18:30 General: Appears uncomfortable, Behavior is calm, cooperative. Pain: Complains of pain aa5 in back of head Pain currently is 10 out of 10 on a pain scale. Quality of pain is described as pressure, Pain began 2-3 days ago. Is continuous. Neuro: Level of Consciousness is awake, alert, obeys commands, Oriented to person, place, time, situation. Cardiovascular: Patient's skin is warm and dry. Respiratory: Airway is patent Respiratory effort is even, unlabored, Respiratory pattern is regular, symmetrical. GI: Abdomen is non-distended, Bowel sounds present X 4 quads. Abd is soft and non tender X 4 quads. Reports nausea. : No signs and/or symptoms were reported regarding the genitourinary system. EENT: No signs and/or symptoms were reported regarding the EENT system. Derm: Skin is pink, warm \T\ dry. Musculoskeletal: Range of motion: intact in all extremities. Vital Signs: 16:22 BP 129 / 89; Pulse 80; Resp 17; Temp 97.5; Pulse Ox 100% ; Weight 90.72 kg; Height 6 ap3 ft. 3 in. ; Pain 10/10; 18:30 BP 141 / 73; Pulse 67; Resp 18 S; Pulse Ox 99% on R/A; aa5 20:38 BP 130 / 91; Pulse 87; Resp 18; Temp 98.6; Pulse Ox 99% on R/A; Pain 0/10; kd4 16:22 Body Mass Index 25.00 (90.72 kg, 190.5 cm) ap3 16:22 Pain Scale: Adult ap3 20:38 Pain Scale: Adult kd4 ED Course: 16:14 Patient arrived in ED. mg5 16:15 Javed Whiting PA is PHCP. cp 16:15 Jamal Boswell MD is Attending Physician. cp 16:23 Triage completed. ap3 16:25 Arm band placed on left wrist. ap3 18:30 Patient has correct armband on for positive identification. Bed in low position. Call aa5 light in reach. Side rails up X 1. Pulse ox on. NIBP on. 18:40 Initial lab(s) drawn, by me, sent to lab. Inserted saline lock: 22 gauge in right aa5 forearm, using aseptic technique. Blood collected. 18:42 Krystin Hurd, RN is Primary Nurse. aa5 19:30 Primary Nurse role handed off by Krystin Hurd RN cm10 19:30 Latisha Cardenas, VERENICE is Primary Nurse. cm10 20:37 Sagar Mcallister MD is Referral Physician. cp 20:39 No provider procedures requiring assistance completed. IV discontinued, patient kd4 discharged. 20:41 Provided Education on: discharge instruction. kd4 Administered Medications: 18:47 Drug: NS 0.9% IV 1000 ml IV at 1 bolus Per protocol; 1000 mL bolus Route: IV; Rate: 1 cm10 bolus; Site: right forearm; 19:53 Follow up: Response: No adverse reaction; IV Status: Completed infusion; IV Intake: cm10 1000ml 20:42 Follow up: Rate change bolus; IV Status: Completed infusion kd4 18:47 Drug: metoCLOPramide IVP 10 mg IVP once; over 1 to 2 minutes Route: IVP; Site: right cm10 forearm; 19:53 Follow up: Response: No adverse reaction cm10 20:42 Follow up: Response: No adverse reaction kd4 18:47 Drug: diphenhydrAMINE IVP 25 mg IVP once Route: IVP; Site: right forearm; cm10 19:53 Follow up: Response: No adverse reaction cm10 20:42 Follow up: Response: No adverse reaction kd4 19:52 Drug: Dexamethasone IVP 10 mg IVP once; (not to exceed 40 mg) Route: IVP; Site: right cm10 forearm; 20:42 Follow up: Response: No adverse reaction kd4 19:53 Drug: Droperidol IVP 1.25 mg IVP once Route: IVP; Site: right forearm; cm10 20:42 Follow up: Response: No adverse reaction kd4 Medication: 19:06 VIS not applicable for this client. aa5 Intake: 19:53 IV: 1000ml; Total: 1000ml. cm10 Outcome: 20:38 Discharge ordered by . garry 20:40 Discharged to home ambulatory, kd4 20:40 Condition: good 20:40 Discharge instructions given to patient, Instructed on discharge instructions, 20:46 Patient left the ED. cm10 Signatures: Krystin Hurd, RN RN aa5 Javed Whiting PA PA cp Prokisch, Amanda, RN RN britton3 Latisha Cardenas RN RN cm10 Estela Recinos mg5 Isela Campoverde RN RN kd4
--- NOTE | 2023-08-27 20:38 | EDPHYS ---
Physician Documentation [facility] Name: Irving Tan Age: 42 yrs Sex: Male : 1980 Arrival Date: 08/27/2023 Time: 16:08 Bed 8 Private MD: ED Physician Jamal Boswell HPI: 08/26 16:50 This 42 yrs old Male presents to ER via Ambulatory with complaints of Headache. cp 16:50 The patient complains of pain to the right frontal area and right side of the back of cp head. The patient describes the headache as aching, constant. 16:50 Onset: The symptoms/episode began/occurred 3 day(s) ago. Associated signs and symptoms: cp Pertinent positives: nausea, Photophobia Pertinent negatives: fever, neck stiffness, vomiting, weakness. 16:50 Severity of symptoms: in the emergency department the pain is unchanged, despite home cp interventions. Headache History: The patient has had previous headaches and this one is similar to previous episodes. Historical: - Allergies: 16:23 No Known Allergies; ap3 - Home Meds: 16:23 None [Active]; ap3 - PMHx: 16:23 Kidney stone; ap3 - Immunization history:: Client reports having NOT received the Covid vaccine. - Infectious Disease History:: Denies. - Social history:: Smoking status: Patient reports the use of cigarette tobacco products, smokes one-half pack cigarettes per day, Patient uses street drugs, marijuana. ROS: 17:00 Constitutional: Negative for body aches, chills, fever, poor PO intake, cp 17:00 Eyes: Negative for injury, pain, redness, and discharge, cp 17:00 ENT: Negative for drainage from ear(s), ear pain, sore throat, difficulty swallowing, difficulty handling secretions, 17:00 Cardiovascular: Negative for chest pain, edema, palpitations, 17:00 Respiratory: Negative for cough, shortness of breath, wheezing, 17:00 Abdomen/GI: Positive for nausea, Negative for abdominal pain, vomiting, diarrhea, constipation, 17:00 Neuro: Positive for headache, Negative for altered mental status, numbness, weakness, 17:00 All other systems are negative, Exam: 17:03 Constitutional: The patient appears in no acute distress, alert, awake, cp non-diaphoretic, non-toxic, well developed, well nourished, uncomfortable, 17:03 Head/Face: Normocephalic, atraumatic. cp 17:03 Eyes: Periorbital structures: appear normal, Pupils: equal, round, and reactive to light and accomodation, Extraocular movements: intact throughout, Conjunctiva: normal, no exudate, no injection, Sclera: no appreciated abnormality, Lids and lashes: appear normal, bilaterally, 17:03 ENT: External ear(s): are unremarkable, Nose: is normal, Mouth: Lips: moist, Oral mucosa: pink and intact, moist, Posterior pharynx: Airway: no evidence of obstruction, patent, 17:03 Neck: ROM/movement: is normal, is supple, without pain, no range of motions limitations, 17:03 Chest/axilla: Inspection: normal, 17:03 Cardiovascular: Rate: normal, Rhythm: regular, 17:03 Respiratory: the patient does not display signs of respiratory distress, Respirations: normal, no use of accessory muscles, no retractions, labored breathing, is not present, Breath sounds: are clear throughout, no decreased breath sounds, no stridor, no wheezing, 17:03 Abdomen/GI: Inspection: abdomen appears normal, Palpation: abdomen is soft and non-tender, in all quadrants, 17:03 Neuro: Orientation: to person, place \T\ time. Mentation: is normal, Motor: moves all fours, strength is normal, Sensation: is normal, Gait: is steady, at a normal pace, without difficulty, Vital Signs: 16:22 BP 129 / 89; Pulse 80; Resp 17; Temp 97.5; Pulse Ox 100% ; Weight 90.72 kg; Height 6 ap3 ft. 3 in. ; Pain 10/10; 18:30 BP 141 / 73; Pulse 67; Resp 18 S; Pulse Ox 99% on R/A; aa5 20:38 BP 130 / 91; Pulse 87; Resp 18; Temp 98.6; Pulse Ox 99% on R/A; Pain 0/10; kd4 16:22 Body Mass Index 25.00 (90.72 kg, 190.5 cm) ap3 16:22 Pain Scale: Adult ap3 20:38 Pain Scale: Adult kd4 MDM: 16:25 Patient medically screened. cp 20:37 Data reviewed: vital signs, nurses notes, lab test result(s), and as a result, I will cp discharge patient. 20:37 Differential diagnosis: intracerebral hemorrhage, migraine, sinusitis, tension cp headache. I considered the following discharge prescriptions or medication management in the emergency department Medications were administered in the Emergency Department. See MAR. Counseling: I had a detailed discussion with the patient and/or guardian regarding the historical points, exam findings, and any diagnostic results supporting the discharge/admit diagnosis, lab results, to return to the emergency department if symptoms worsen or persist or if there are any questions or concerns that arise at home. Response to treatment: the patient's symptoms have markedly improved after treatment, and as a result, I will discharge patient. 08/26 16:50 Order name: Urinalysis W/Microscopic; Complete Time: 20:30 08/26 20:30 Interpretation: Reviewed. 08/26 16:50 Order name: CBC with Diff; Complete Time: 18:55 08/26 18:55 Interpretation: Normal except: WBC 11.20; RBC 5.81; HCT 50.6; MPV 6.7. 08/26 16:50 Order name: CMP; Complete Time: 19:23 08/26 20:30 Interpretation: Normal except: AST < 10; TP 8.3; GLOB 3.7. 08/26 16:47 Order name: IV; Complete Time: 18:42 cp Administered Medications: 18:47 Drug: NS 0.9% IV 1000 ml IV at 1 bolus Per protocol; 1000 mL bolus Route: IV; Rate: 1 cm10 bolus; Site: right forearm; 19:53 Follow up: Response: No adverse reaction; IV Status: Completed infusion; IV Intake: cm10 1000ml 20:42 Follow up: Rate change bolus; IV Status: Completed infusion kd4 18:47 Drug: metoCLOPramide IVP 10 mg IVP once; over 1 to 2 minutes Route: IVP; Site: right cm10 forearm; 19:53 Follow up: Response: No adverse reaction cm10 20:42 Follow up: Response: No adverse reaction kd4 18:47 Drug: diphenhydrAMINE IVP 25 mg IVP once Route: IVP; Site: right forearm; cm10 19:53 Follow up: Response: No adverse reaction cm10 20:42 Follow up: Response: No adverse reaction kd4 19:52 Drug: Dexamethasone IVP 10 mg IVP once; (not to exceed 40 mg) Route: IVP; Site: right cm10 forearm; 20:42 Follow up: Response: No adverse reaction kd4 19:53 Drug: Droperidol IVP 1.25 mg IVP once Route: IVP; Site: right forearm; cm10 20:42 Follow up: Response: No adverse reaction kd4 Disposition Summary: 08/27/23 20:38 Discharge Ordered Notes: Location: Home cp Problem: new cp Symptoms: have improved cp Condition: Stable cp Diagnosis - Headache cp Followup: cp - With: Sagar Mcallister MD - When: 2 - 3 days - Reason: Recheck today's complaints Discharge Instructions: - Discharge Summary Sheet cp - Migraine Headache cp Forms: - Medication Reconciliation Form cp - Antibiotic Education cp - Prescription Opioid Use cp - Patient Portal Instructions cp - Leadership Thank You Letter cp Prescriptions: - Fioricet 50-300-40 mg Oral capsule - take 1 capsule ORAL route every 6 hours as needed for pain; do not exceed 6 cp caps per day; 20 capsule; Refills: 0, Product Selection Permitted - Ibuprofen 800 mg Oral Tablet - take 1 tablet ORAL route every 8 hours As needed take with food; 30 tablet; cp Refills: 0, Product Selection Permitted - Reglan 10 mg Oral Tablet - take 1 tablet ORAL route every 6 hours take 30 minutes before meals and at cp bedtime; 20 tablet; Refills: 0, Product Selection Permitted Addendum: 08/29/2023 05:48 I was immediately available for consultation during this patient's visit. I did not e c2 personally see the patient or discuss the patient with the [facility]. . Signatures: Dispatcher [employer] Javed Zimmerman PA PA cp Prokisch, Amanda, RN RN ap3 Latisha Cardenas RN RN cm10 Jamal Boswell MD MD ec2 Isela Campoverde RN kd4
[2023-08-27 21:46] VITALS: BP 130/91; TEMP 98.6; O2SAT 99
== END 2023-08-27 20:46 | disposition home or self-care (01) ==
LOC: ER 16:08
DX: R51.9 Headache, unspecified (principal)
CPT/HCPCS: 96361; 85025; 81001; 36415; 80053; 96375; 96374; 99284; J2765; J1200; J1100; J7030